=== PATIENT | male | born 1955 | race African-American/Black ===

== ENCOUNTER 2016-07-15 11:20 | Emergency (ER) | payer OTHER ==
[~2016-07-15 11:20] MED LIST: ADVA250A INH; ALBU0.08 NEB; AMLO10TA2 PO; ASPI81TA81 PO; BACT800T5 PO; BUPR100CR PO; DIAZ5 PO; ENAL20TA81 PO; EXENINJ SQ; GLYB5TAB3 PO; HYDR50TA3 PO; LEVEMIR SQ; LYRI200C PO; METF1000 PO; MORP1TAB25 PO; MSIR15 PO; NEXI40CA PO; NOVOLOGP2 SQ; POTA1TAB4 PO; PRED-503 PO; SIMV40TA PO; VENTAER INH
[2016-07-16] MEDS ORDERED: LYRI200C PO (09:30)
[2016-10-15] MEDS ORDERED: LYRI200C PO (10:21)
== END 2016-07-15 11:21 | disposition left against medical advice (07) ==
LOC: NED 11:20
DX: J98.9 Respiratory disorder, unspecified (principal)
CPT/HCPCS: 99281

== ENCOUNTER → 2016-07-30 | Outpatient (CLI) | payer OTHER ==
[~2016-07-30] MED LIST changes: -BACT800T5 PO; -PRED-503 PO
--- NOTE | 2016-07-30 13:42 | RADRPT ---
EXAM DATE/TIME: 07/30/2016 13:00 [facility] COMPARISON: CHEST PA & LAT, June 04, 2016, 9:53. INDICATIONS : Short of breath, hypoxia. MEDICAL HISTORY : Chronic obstructive pulmonary disease. Diabetes mellitus type II. Asthma. SURGICAL HISTORY : None. ENCOUNTER: Initial ACUITY: 1 week PAIN SCORE: 0/10 LOCATION: chest FINDINGS: PA and lateral views demonstrate some hyperaeration of both lung kay. There is some chronic inters titial changes bilaterally. Otherwise, the lungs are symmetrically aerated without evidence of mass, infiltrate or effusion. The cardiomediastinal contours are unremarkable. Osseous structures are int act. No significant change compared to the prior study. There is some mild stable pleural thickening bilaterally. CONCLUSION: No acute disease. No significant change has occurred. Sivakumar Trejo MD on July 30, 2016 at 13:38 Board Certified Radiologist. This report was verified electronically.
== END ==
LOC: HRAD 12:33
PROVIDERS: ATTEND Family Medicine
DX: R06.02 Shortness of breath (principal); R09.02 Hypoxemia
CPT/HCPCS: 71020

== ENCOUNTER 2016-09-08 15:40 | Inpatient (IN) | payer OTHER ==
[2016-09-08 15:42] VITALS: BP 178/103; PULSE 91; RESP 15; TEMP 97.7; O2SAT 77
[2016-09-08 15:57] VITALS: BP 184/95; PULSE 89; RESP 22; O2SAT 92
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
[2016-09-08 16:13] LABS: MEAN CORPUSCULAR HGB CONC 29.6 % (32.0-36.0)
[2016-09-08] MEDS ORDERED: SODIUM CHLORIDE 0.9% FLUSH 5 ML FLUSH IVF PRN (16:15)
[2016-09-08] MEDS ORDERED: methylPREDNISolone SOD SUCC 125 MG/2 ML VIAL IVP ONE (16:15)
[2016-09-08 16:30] LABS: AUTOMATED NEUTROPHIL # 6.2 TH/MM3 (1.8-7.7); BASOPHIL % 0.3 % (0.0-2.0); EOSINOPHIL % 0.1 % (0.0-4.0); HEMATOCRIT 45.2 % (39.0-51.0); LYMPH % 10.1 % (9.0-44.0); LYMPHOCYTE # 0.8 TH/MM3 (1.0-4.8); MEAN CELL VOLUME 64.7 FL (80.0-100.0); MEAN CORPUSCULAR HEMOGLOBIN 19.2 PG (27.0-34.0); MONO % 6.4 % (0.0-8.0); NEUT % 83.1 % (16.0-70.0); PLATELET COUNT 207 TH/MM3 (150-450); RED BLOOD COUNT 6.99 MIL/MM3 (4.50-5.90); RED CELL DISTRIBUTION WIDTH 20.7 % (11.6-17.2); WHITE BLOOD COUNT 7.5 TH/MM3 (4.0-11.0)
[2016-09-08] MEDS ORDERED: ASPIRIN 81 MG CHEW TAB CHEW ONE (16:30)
[2016-09-08 16:34] LABS: HEMO FLAGS AUTO DIFF
--- NOTE | 2016-09-08 16:35 | RADRPT ---
EXAM DATE/TIME: 09/08/2016 16:23 [facility] COMPARISON: CHEST SINGLE AP, May 18, 2016, 11:02. INDICATIONS : Short of breath and chest pain. MEDICAL HISTORY : Chronic obstructive pulmonary disease. Enlarged heart SURGICAL HISTORY : None. ENCOUNTER: Initial ACUITY: 1 day PAIN SCORE: 6/10 LOCATION: Bilateral chest FINDINGS: The heart is enlarged. Pulmonary vascularity is normal. Minimal consolidative changes are seen in the left base. The right lung is reasonably clear. CONCLUSION: 1. Cardiomegaly. 2. Minimal consolidative changes in the left base. 3. There is no overt congestive failure. Bennie Sesay MD FACR on September 08, 2016 at 16:28 Board Certified Radiologist. This report was verified electronically.
[2016-09-08] MEDS: RESP: ALBUTEROL 2.5 MG/IPRATROPIUM 0.5 MG NEB (SCH) INH (16:38)
[2016-09-08 16:48] VITALS: O2SAT 92
[2016-09-08 16:58] LABS: BICARBONATE 34.1 MEQ/L (21.0-32.0)
[2016-09-08 17:00] LABS: INTERNATIONAL NORMALIZED RATIO 1.1 RATIO; PROTHROMBIN TIME - PATIENT 12.1 SEC (9.8-11.6)
[2016-09-08 17:06] LABS: POTASSIUM 2.9 MEQ/L (3.5-5.1)
[2016-09-08 17:11] LABS: BACTERIA, URINE OCC /hpf; BLOOD, URINE NEG (NEG); COMMENT (UR) CULT NOT INDICATED; CULTURE IF INDICATED CULT NOT INDICATED; GLUCOSE,URINE 300 mg/dL (NEG); KETONE, URINE NEG (NEG); MUCUS URINE FEW /lpf (OCC); NITRITE,URINE NEG (NEG); PH, URINE 6.5 (5.0-8.5); SQUAMOUS EPITHELIAL CELL URINE <1 /hpf (0-5); URINE COLOR YELLOW (YELLW/STRAW)
[2016-09-08] MEDS ORDERED: AZITHROMYCIN INJ 500 MG in SODIUM CHLOR 0.9% 250 ML INJ 250 ML IV ONE (17:15)
[2016-09-08] MEDS ORDERED: POTASSIUM CHLOR 10 MEQ PREMIX 100 ML IV ONE (17:15)
[2016-09-08] MEDS ORDERED: HEPARIN SODIUM - IV 10,000 UNITS/10 ML VIAL IV ONE (17:15)
[2016-09-08] MEDS ORDERED: cefTRIAXone INJ 1,000 MG in SODIUM CHLORIDE 0.9% INJ 100 ML IV ONE (17:15)
[2016-09-08] MEDS ORDERED: POTASSIUM CHLORIDE 20 MEQ CONTROLLED RELEASE TAB PO ONE (17:15)
[2016-09-08] MEDS ORDERED: HEPARIN-D5W INJ 250 ML IV SCH (17:15)
[2016-09-08 17:39] LABS: BASOPHILS 2 % (0-2); CORRECTED NUCLEATED RBC 1 /100 WBC (0-0); NEUTROPHIL # MANUAL DIFF 6.6 TH/MM3 (1.8-7.7); POLYS (SEG NEUTROPHILS) 88 % (16-70); WBC DIFF SAMPLE 100
[2016-09-08 17:40] LABS: KERATOCYTES OCC (NORMAL); OVALOCYTES 1+ (NORMAL); PLATELET ESTIMATE SMEAR NORMAL (NORMAL); PLATELET MORPHOLOGY ENLARGED (NORMAL)
[2016-09-08 17:41] LABS: SCAN/DIFF FINAL DIFF MANUAL
[2016-09-08] MEDS ORDERED: NALOXONE HCL 0.4 MG/ML AMP IV PRN (17:45)
[2016-09-08] MEDS ORDERED: ONDANSETRON HCL 4 MG/2 ML VIAL IVP PRN (17:45)
[2016-09-08] MEDS ORDERED: MAGNESIUM HYDROXIDE SUSP 30 ML CUP PO PRN (17:45)
[2016-09-08] MEDS ORDERED: SODIUM CHLORIDE 0.9% FLUSH 5 ML FLUSH FLUSH PRN (17:45)
[2016-09-08] MEDS ORDERED: SENNOSIDES 8.6 MG TAB PO PRN (17:45)
[2016-09-08] MEDS ORDERED: RESP: ALBUTEROL 2.5 MG/3 ML NEB (PRN) INH (17:45)
[2016-09-08] MEDS ORDERED: ACETAMINOPHEN 325 MG TAB PO PRN (17:45)
[2016-09-08] MEDS ORDERED: DEXTROSE 50% IN WATER 50 ML VIAL(D50) IV PUSH PRN (17:45)
[2016-09-08] MEDS ORDERED: GLUCAGON 1 MG/ML VIAL OTHER PRN (17:45)
[2016-09-08 17:56] VITALS: BP 163/84; PULSE 91; RESP 22; O2SAT 93
[2016-09-08 18:04] LABS: APTT (PATIENT) 23.2 SEC (24.3-30.1)
[2016-09-08] MEDS ORDERED: INSULIN ASPART SUPPLEMENTAL SCALE SQ SCH (21:00)
[2016-09-08] MEDS ORDERED: SODIUM CHLORIDE 0.9% FLUSH 5 ML FLUSH FLUSH SCH (21:00)
[2016-09-08] MEDS ORDERED: methylPREDNISolone SOD SUCC 125 MG/2 ML VIAL IVP SCH (21:00)
[2016-09-09] MEDS ORDERED: cefTRIAXone INJ 1,000 MG in SODIUM CHLORIDE 0.9% INJ 100 ML IV SCH (18:00)
[2016-09-09] MEDS ORDERED: AZITHROMYCIN INJ 500 MG in SODIUM CHLOR 0.9% 250 ML INJ 250 ML IV SCH (20:00)
--- NOTE | 2016-09-10 11:52 | EKG ---
Date Performed: 09/08/2016 Time Performed: 16:09:35 PTAGE: 61 years EKG: Sinus rhythm POSSIBLE LEFT ATRIAL ENLARGEMENT NONSPECIFIC ST & T-WAVE ABNORMALITY BORDERLINE ECG PREVIOUS TRACING : 05/18/2016 10.54 DOCTOR: Andrez Faye Interpretating Date/Time 09/10/2016 11:50:23
[2016-10-15] MEDS ORDERED: LYRI200C PO (10:21)
== END 2016-09-08 23:53 | disposition left against medical advice (07) | DRG 190 ==
LOC: NEPA 15:40 → NEDA 17:42
PROVIDERS: ADMIT Family Medicine; ATTEND Family Medicine
DX: J44.0 Chronic obstructive pulmonary disease with (acute) lower respiratory infection (principal); J18.9 Pneumonia, unspecified organism; E11.42 Type 2 diabetes mellitus with diabetic polyneuropathy; Z99.81 Dependence on supplemental oxygen; J44.1 Chronic obstructive pulmonary disease with (acute) exacerbation; K21.9 Gastro-esophageal reflux disease without esophagitis; E78.5 Hyperlipidemia, unspecified; I10 Essential (primary) hypertension; Z87.891 Personal history of nicotine dependence
CPT/HCPCS: 71010; 80048; 81001; 83880; 84484; 85007; 85027; 85610; 85730; 87040; 93005; 94640; 94664; 96374; J0456; J0696; J1644; J2930; J3480; J7050

== ENCOUNTER → 2017-03-13 | Outpatient (CLI) | payer OTHER ==
[~2017-03-13] MED LIST changes: +LYRI225C PO
--- NOTE | 2017-03-13 09:06 | RADRPT ---
EXAM DATE/TIME: 03/13/2017 08:31 [facility] COMPARISON: CHEST SINGLE AP, September 08, 2016, 16:23. CHEST PA & LAT, July 30, 2016, 13:00. INDICATIONS : Cough and shortness of breath with history of COPD and pneumonia. MEDICAL HISTORY : Chronic obstructive pulmonary disease. Diabetes mellitus type II. Asthma SURGICAL HISTORY : None. ENCOUNTER: Initial ACUITY: 1 week PAIN SCORE: 5/10 LOCATION: Bilateral upper chest FINDINGS: Background of coarse parietal changes in both lungs without consolidation, infiltrates or failure. Th e heart and pulmonary vascularity are normal. The portion of the bony skeleton visualized is unremark able. CONCLUSION: Coarse parenchymal changes both lungs, improved when compared to 07/30/2016. Bennie Sesay MD FACR on March 13, 2017 at 9:04 Board Certified Radiologist. This report was verified electronically.
== END ==
LOC: HRAD 07:55
PROVIDERS: ATTEND Family Medicine
DX: R05 Cough (principal)
CPT/HCPCS: 71020

== ENCOUNTER → 2017-11-12 | Outpatient (CLI) | payer OTHER ==
--- NOTE | 2017-11-12 11:56 | RADRPT ---
EXAM DATE/TIME: 11/12/2017 10:04 [facility] COMPARISON: CHEST PA & LAT, May 18, 2017, 7:48. INDICATIONS : Pneumonia. MEDICAL HISTORY : Congestive heart failure. Hypercholesterolemia. Chronic obstructive pulmonary disease. Hypertensi on. Fibromyalgia. Diabetic. SURGICAL HISTORY : Tonsillectomy. ORIF left ankle. ENCOUNTER: Initial ACUITY: 1 week PAIN SCORE: 0/10 LOCATION: chest FINDINGS: Frontal and wheelchair lateral views of the chest demonstrate normal-sized cardiac silhouette. There is interstitial prominence similar to the prior study with likely some degree of atelectasis at the l isha bases. No pleural effusion or pneumothorax is identified. Bones demonstrate no acute finding. The re is mild degenerative change of the thoracic spine. CONCLUSION: There is likely atelectasis at the lung bases. Otherwise, no acute finding is appreciated. Romel Mena MD on November 12, 2017 at 11:52 Board Certified Radiologist. This report was verified electronically.
== END ==
LOC: HRAD 09:45
PROVIDERS: ATTEND Family Medicine
DX: J18.9 Pneumonia, unspecified organism (principal)
CPT/HCPCS: 71046

== ENCOUNTER 2017-12-16 02:09 | Inpatient (IN) ==
[2018-01-10] MEDS ORDERED: Heparin 2,000 UNITS/2 ML Vial (for IV use) IV.FLUSH PRN (00:01)
[2018-01-10] MEDS ORDERED: Heparin 10,000 UNITS/10 ML Vial (for IV use) IV.FLUSH PRN (00:01)
[2018-01-10] MEDS ORDERED: Chlorhexidine Gluconate 2% 1 Pack (2 Cloths) TOPICAL PRN (00:01)
[2018-01-10] MEDS ORDERED: Heparin 10,000 UNITS/10 ML Vial (for IV use) OTHER PRN ×2 (00:01)
[2018-01-10] MEDS ORDERED: Gelatin 12 MM/7 MM Topical Foam TOPICAL PRN (00:01)
[2018-01-10] MEDS ORDERED: Dextrose 50% in Water 50 ML Vial IV.PUSH PRN (00:01)
[2018-01-10] MEDS ORDERED: Bisacodyl 10 MG Supp RECTAL PRN (00:01)
[2018-01-10] MEDS ORDERED: Acetaminophen 325 MG Tablet PO PRN ×2 (00:01)
[2018-01-10] MEDS ORDERED: Albumin Human 25% Inj 100 ML IV.SIG PRN (00:01)
[2018-01-10] MEDS ORDERED: Sod Chloride 0.9% Inj 1,000 ML OTHER PRN ×2 (01:00)
[2018-01-10] MEDS ORDERED: Sod Chloride 0.9% Inj 1,000 ML IV.CONT PRN (01:00)
[2018-01-10] MEDS: Dextrose 5% in Water Inj 1,000 ML IV.CONT SCH (05:33)
[2018-01-10] MEDS: Oral Hygiene Kit OROPHARYNG SCH ×3 (05:49→17:45)
[2018-01-10] MEDS: Chlorhexidine Gluconate 2% 1 Pack (2 Cloths) TOPICAL SCH (06:06)
[2018-01-10] MEDS: dilTIAZem 30 MG Tablet PO SCH ×3 (06:08→18:15)
[2018-01-10] MEDS: Famotidine 20 MG Tablet PO SCH ×2 (10:43→22:47)
[2018-01-10] MEDS: Calcium Acetate 667 MG Capsule PO SCH ×3 (10:43→19:21)
[2018-01-10] MEDS: predniSONE 10 MG Tablet PO SCH (10:45)
[2018-01-10] MEDS: Senna/Docusate Sodium 8.6/50 MG Tablet PO SCH ×2 (10:45→22:47)
[2018-01-10] MEDS: Insulin Detemir Inj 1,000 UNIT/10 ML Vial SQ SCH ×2 (11:09→21:00)
--- NOTE | 2018-01-10 11:57 | P.PNIM ---
Subjective Interval history: No significant changes today. Patient continues dialysis on schedule and is tolerating this well. He remains globally weak and cannot discharge home yet. He does not have retirement facility options. Physical Exam Vital signs: Vital Signs 01/10/18 00:00 01/10/18 04:00 01/10/18 08:00 Temperature 97.6 F 97.2 F L 97.3 F L Pulse Rate 110 H 106 H 101 H Respiratory Rate 19 17 18 Blood Pressure 96/78 L 116/83 93/66 L Pulse Oximetry 92 L 94 L 99 01/10/18 08:50 Temperature Pulse Rate 64 Respiratory Rate 16 Blood Pressure Pulse Oximetry 95 Intake & Output 01/09/18 01/10/18 01/10/18 18:59 06:59 18:59 Intake Total 120 / 120 Output Total 0 / 0 Balance 120 / 120 Weight 113 kg 105.3 kg Intake: Oral 120 / 120 Output: Urine Amount (Catheter) 0 / 0 Condom 0 / 0 - Routine HEENT Exam Comments: GENERAL: NAD, A&Ox3 HEAD: Normocephalic. NECK: Supple, trachea midline. No lymphadenopathy. EYES: No scleral icterus. No injection or drainage. CARDIOVASCULAR: Regular rate and rhythm without murmurs, gallops, or rubs. RESPIRATORY: Breath sounds equal bilaterally. No accessory muscle use. GASTROINTESTINAL: Abdomen soft, non-tender, nondistended. MUSCULOSKELETAL: No cyanosis, or edema. SKIN: Warm and dry. NEURO: No focal neurological deficitis. - Urinary Catheter Management Condom Cath placed during this visit: no Results - Labs CBC & Chem 7: 01/09/18 08:09 01/09/18 08:09 Labs: Laboratory Results - last 24 hr 01/06/18 01/06/18 01/07/18 14:44 14:44 05:21 WBC 19.3 H 15.8 H RBC 5.84 6.11 H Hgb 12.4 L 12.5 L Hct 39.5 41.7 MCV 67.6 L 68.2 L MCH 21.1 L 20.4 L MCHC 31.3 L 29.9 L RDW 21.5 H 22.2 H Plt Count 107 L D 165 D MPV 9.7 9.3 Neut % (Auto) 91.3 H Lymph % (Auto) 2.1 L [place] % (Auto) 5.6 Eos % (Auto) 0.4 Baso % (Auto) 0.6 Neut # (Auto) 17.6 H Lymph # (Auto) 0.4 L [place] # (Auto) 1.1 H Eos # (Auto) 0.1 Baso # (Auto) 0.1 CBC Comment AUTO DIFF Differential Comment AUTO DIFF CONFIRMED Platelet Estimate LOW L Plt Morphology Comment ENLARGED H Target Cells 1+ H Ovalocytes 1+ H Hematology Comments Sodium 135 L Potassium 3.8 Chloride 98 Carbon Dioxide 25.1 Anion Gap 12 BUN 101 H D Creatinine 3.65 H D Estimated GFR 21 L Random Glucose 256 H D Calcium 9.1 D Phosphorus 4.1 D Magnesium 2.3 Total Bilirubin 1.4 H AST 69 H ALT 122 H Alkaline Phosphatase 111 Total Protein 7.5 Albumin 3.4 01/08/18 01/08/18 01/09/18 07:24 07:25 08:09 WBC 15.2 H RBC 5.99 H Hgb 12.5 L Hct 41.6 MCV 69.4 L MCH 20.8 L MCHC 30.0 L RDW 22.6 H Plt Count 155 MPV 9.2 Neut % (Auto) 82.8 H Lymph % (Auto) 4.5 L [place] % (Auto) 8.7 H Eos % (Auto) 3.5 Baso % (Auto) 0.5 Neut # (Auto) 12.6 H Lymph # (Auto) 0.7 L [place] # (Auto) 1.3 H Eos # (Auto) 0.5 H Baso # (Auto) 0.1 CBC Comment AUTO DIFF Differential Comment AUTO DIFF CONFIRMED Platelet Estimate NORMAL Plt Morphology Comment NORMAL Target Cells Ovalocytes 1+ H Hematology Comments Sodium 137 138 Potassium 3.4 L 3.6 Chloride 96 L 98 Carbon Dioxide 25.9 29.6 Anion Gap 15 10 BUN 71 H D 81 H Creatinine 2.95 H 3.21 H Estimated GFR 26 L 24 L Random Glucose 173 H 174 H Calcium 9.5 9.6 Phosphorus Magnesium Total Bilirubin 1.3 H 1.3 H AST 66 H 91 H ALT 116 H 111 H Alkaline Phosphatase 114 122 H Total Protein 8.0 8.1 Albumin 3.8 3.7 01/09/18 08:09 WBC 12.8 H RBC 5.91 H Hgb 12.3 L Hct 40.6 MCV 68.8 L MCH 20.8 L MCHC 30.3 L RDW 22.2 H Plt Count 168 MPV 9.3 Neut % (Auto) 77.5 H Lymph % (Auto) 4.6 L [place] % (Auto) 10.1 H Eos % (Auto) 6.7 H Baso % (Auto) 1.1 Neut # (Auto) 10.0 H Lymph # (Auto) 0.6 L [place] # (Auto) 1.3 H Eos # (Auto) 0.9 H Baso # (Auto) 0.1 CBC Comment AUTO DIFF Differential Comment AUTO DIFF CONFIRMED Platelet Estimate NORMAL Plt Morphology Comment ENLARGED H Target Cells Ovalocytes 1+ H Hematology Comments Sodium Potassium Chloride Carbon Dioxide Anion Gap BUN Creatinine Estimated GFR Random Glucose Calcium Phosphorus Magnesium Total Bilirubin AST ALT Alkaline Phosphatase Total Protein Albumin Assessment and Plan - Plan 62 year old male admitted in respiratory distress. No significant changes compared to yesterday. Continue to work with PT to try to attain functionality for a stable discharge to home. SNF not an option. Acute hypoxic respiratory failure COPD exacerbation Pulmonary hypertension Status post extubation on 12/31/2017 Continue oxygen support as needed Continue steroid taper Continue scheduled breathing treatments including inhaled steroids Obstructive sleep apnea Obesity hypoventilation syndrome Continue BiPAP at night Hypertension Continue baseline treatment Follow blood pressures Adjust treatments as needed Hyperlipidemia Continue present treatment Follow as an outpatient Acute renal failure ATN Continue dialysis Possible small CVA Daily aspirin Chronic HCV Anxiety disorder on chronic benzos Depression Chronic pain syndrome and chronic opiate Continue morphine Continue bupropion Continue Lyrica Diabetes mellitus type 2 Follow blood sugars Insulin sliding scale Diabetic diet History of HIT Follow platelets Sacral decubitus wound Continue wound care History of MGUS DVT prophylaxis Chest wall mass Biopsy once stable Leukocytosis Follow CBC Discharge Planning Ultimately patient will discharge to retirement facility
--- NOTE | 2018-01-10 13:12 | P.PNNP ---
Subjective Interval history: Patient is lethargic but does arouse. No acute complaints per nursing. Hemodialysis yesterday tolerated well. <Amber Thomas - Last Filed: 01/10/18 13:07> Physical Exam Vital signs: Vital Signs 01/10/18 00:00 01/10/18 04:00 01/10/18 08:00 Temperature 97.6 F 97.2 F L 97.3 F L Pulse Rate 110 H 106 H 101 H Respiratory Rate 19 17 18 Blood Pressure 96/78 L 116/83 93/66 L Pulse Oximetry 92 L 94 L 99 01/10/18 08:50 Temperature Pulse Rate 64 Respiratory Rate 16 Blood Pressure Pulse Oximetry 95 Intake & Output 01/09/18 01/10/18 01/10/18 18:59 06:59 18:59 Intake Total 120 / 120 Output Total 0 / 0 Balance 120 / 120 Weight 113 kg 105.3 kg Intake: Oral 120 / 120 Output: Urine Amount (Catheter) 0 / 0 Condom 0 / 0 - Constitutional no acute distress - Routine HEENT Exam Head: Present: normocephalic ENT: Present: mucous membranes moist - Routine Neck Exam Present: supple. Absent: JVD - Routine Cardiovascular Exam Present: RRR, tachycardia - Routine Abdominal Exam Present: soft, normoactive bowel sounds - Routine Skin Exam Present: warm - Routine Neurological Exam lethargic - Detailed Neurological Exam: Coma Scale Eye Opening: Spontaneous Verbal Response: Confused - Urinary Catheter Management Condom Cath placed during this visit: no <Amber Thomas - Last Filed: 01/10/18 13:07> Vital signs: Vital Signs 01/10/18 00:00 01/10/18 04:00 01/10/18 08:00 Temperature 97.6 F 97.2 F L 97.3 F L Pulse Rate 110 H 106 H 101 H Respiratory Rate 19 17 18 Blood Pressure 96/78 L 116/83 93/66 L Pulse Oximetry 92 L 94 L 99 01/10/18 08:50 01/10/18 12:00 Temperature 98.7 F Pulse Rate 64 102 H Respiratory Rate 16 18 Blood Pressure 96/76 L Pulse Oximetry 95 95 Intake & Output 01/09/18 01/10/18 01/10/18 18:59 06:59 18:59 Intake Total 120 / 120 Output Total 0 / 0 Balance 120 / 120 Weight 113 kg 105.3 kg Intake: Oral 120 / 120 Output: Urine Amount (Catheter) 0 / 0 Condom 0 / 0 - Urinary Catheter Management Condom Cath placed during this visit: no <Paris Cueto - Last Filed: 01/10/18 16:41> Assessment and Plan - Assessment (1) Acute kidney injury Code(s): N17.9 - Acute kidney failure, unspecified Status: Acute Plan: The patient has chronic kidney disease and developed acute kidney injury. Acute renal failure with ATN because of the hypotension or possibility of contrast nephropathy with the CT angiogram done. Renal ultrasound with no hydronephrosis Heart cath pulmonary hypertension Decubitus ulcer Avoid nephrotoxic agents Dialysis TTS schedule Next scheduled hemodialysis on Thursday Will monitor labs and urinary output Watch for renal recovery. <Amber Thomas - Last Filed: 01/10/18 13:07> - Assessment (1) Acute kidney injury Code(s): N17.9 - Acute kidney failure, unspecified Status: Acute Plan: Patient seen and examined, agree with above. Continue HD, TTS. <Paris Cueto - Last Filed: 01/10/18 16:41>
[2018-01-10] MEDS: Chlorhexidine 0.12% Oral Kit 15 ML UDC SWISH-SPIT SCH ×2 (14:41→22:44)
[2018-01-10] MEDS: Artificial Tears Opth Oint 3.5 GM Tube EACH EYE SCH ×2 (14:49→22:44)
[2018-01-10] MEDS: Collagenase Oint 30 GM Tube TOPICAL SCH (14:50)
[2018-01-10] MEDS: Budesonide-Formoterol 160/4.5 MCG 6 GM Inhaler INH SCH ×2 (14:50→21:00)
[2018-01-11] MEDS: Oral Hygiene Kit OROPHARYNG SCH ×4 (02:00→17:05)
[2018-01-11] MEDS: dilTIAZem 30 MG Tablet PO SCH ×5 (06:00→23:26)
[2018-01-11] MEDS: Dextrose 5% in Water Inj 1,000 ML IV.CONT SCH (06:32)
[2018-01-11 07:18] LABS: Baso # (Auto) 0.1 th/mm3 (0.0-0.2); Baso % (Auto) 0.4 % (0.0-2.0); Eos # (Auto) 0.8 th/mm3 (0.0-0.4); Eos % (Auto) 4.2 % (0.0-4.0); Hematocrit 39.2 % (39.0-51.0); Lymph # (Auto) 1.1 th/mm3 (1.0-4.8); Lymph % (Auto) 5.8 % (9.0-44.0); Mean Corpuscular Hemoglobin 20.8 pg (27.0-34.0); Mean Corpuscular Volume 68.1 fL (80.0-100.0); Mean Platelet Volume 9.4 fL (7.0-11.0); Mono # (Auto) 1.6 th/mm3 (0.0-0.9); Neut # (Auto) 14.8 th/mm3 (1.8-7.7); Neut % (Auto) 80.6 % (16.0-70.0); Platelet Count 174 th/mm3 (150-450); Red Blood Count 5.76 mil/mm3 (4.50-5.90); Red Cell Distribution Width 22.3 % (11.6-17.2); White Blood Count 18.3 th/mm3 (4.0-11.0)
[2018-01-11 07:25] LABS: Mean Corpuscular HGB Conc 30.5 % (32.0-36.0)
[2018-01-11 08:20] LABS: Platelet Estimate Normal (Normal); Platelet Morphology Normal (Normal)
[2018-01-11 09:12] LABS: Alanine Aminotransferase 202 U/L (12-78); Albumin 3.4 g/dL (3.4-5.0); Alkaline Phosphatase 126 U/L (45-117); Anion Gap 15 meq/L (5-15); Aspartate Aminotransferase 80 U/L (15-37); Blood Urea Nitrogen 88 mg/dL (7-18); Calcium 9.8 mg/dL (8.5-10.1); Carbon Dioxide 22.4 meq/L (21.0-32.0); Chloride 97 meq/L (98-107); Glomerular Filtration Rate 17 mL/min (>89); Glucose,Random 191 mg/dL (74-106); Potassium 3.9 meq/L (3.5-5.1); Sodium 134 meq/L (136-145); Total Protein 7.9 g/dL (6.4-8.2)
[2018-01-11] MEDS: Famotidine 20 MG Tablet PO SCH ×2 (11:19→23:22)
[2018-01-11] MEDS: Senna/Docusate Sodium 8.6/50 MG Tablet PO SCH ×2 (11:20→23:23)
[2018-01-11] MEDS: predniSONE 10 MG Tablet PO SCH (11:20)
[2018-01-11] MEDS: Calcium Acetate 667 MG Capsule PO SCH ×2 (11:20→15:30)
[2018-01-11] MEDS: Artificial Tears Opth Oint 3.5 GM Tube EACH EYE SCH ×2 (11:21→23:24)
[2018-01-11] MEDS: Insulin Detemir Inj 1,000 UNIT/10 ML Vial SQ SCH ×2 (11:21→23:25)
[2018-01-11] MEDS: Collagenase Oint 30 GM Tube TOPICAL SCH (11:22)
[2018-01-11] MEDS: Budesonide-Formoterol 160/4.5 MCG 6 GM Inhaler INH SCH ×2 (11:23→23:26)
[2018-01-11] MEDS: Chlorhexidine 0.12% Oral Kit 15 ML UDC SWISH-SPIT SCH ×2 (11:32→23:24)
--- NOTE | 2018-01-11 11:35 | P.PNNP ---
Subjective Interval history: Patient continues generalized weakness. Per nursing skin breakdown on buttocks. <Amber Thomas - Last Filed: 01/11/18 11:28> Physical Exam Vital signs: Vital Signs 01/10/18 12:00 01/10/18 16:00 01/10/18 20:00 Temperature 98.7 F 98 F 97.6 F Pulse Rate 102 H 97 H 92 H Respiratory Rate 18 18 20 Blood Pressure 96/76 L 98/63 L 111/73 Pulse Oximetry 95 94 L 98 01/10/18 20:12 01/11/18 00:00 01/11/18 04:00 Temperature 98.0 F 98.2 F Pulse Rate 90 100 H 100 H Respiratory Rate 16 20 20 Blood Pressure 111/75 112/74 Pulse Oximetry 94 L 91 L 93 L 01/11/18 08:00 01/11/18 10:29 Temperature 98.0 F Pulse Rate 93 H 108 H Respiratory Rate 22 24 Blood Pressure 112/64 Pulse Oximetry 94 L Intake & Output 01/10/18 01/11/18 01/11/18 18:59 06:59 18:59 Intake Total 480 / 480 820 / 820 Output Total 350 / 350 Balance 130 / 130 820 / 820 Weight 105.6 kg Intake: IV 420 / 420 D5W Inj 1,000 ML @ 20 mls/hr IV 420 / 420 .CONT .Q24H [facility] Rx#:[id number] Oral 480 / 480 400 / 400 Output: Urine Amount (Catheter) 350 / 350 Condom 350 / 350 Other: # Bowel Movements 0 - Constitutional no acute distress - Routine HEENT Exam Head: Present: normocephalic ENT: Present: mucous membranes moist - Routine Neck Exam Absent: JVD - Routine Respiratory Exam Present: decreased breath sounds. Absent: rales, rhonchi - Routine Cardiovascular Exam Present: RRR - Routine Abdominal Exam Present: soft, normoactive bowel sounds - Routine Skin Exam Present: wounds, rash - Detailed Neurological Exam: Coma Scale Eye Opening: To sound Verbal Response: Confused - Urinary Catheter Management Condom Cath placed during this visit: no Urethral indwelling: No Reason for continuing: Not indwelling catheter <Amber Thomas - Last Filed: 01/11/18 11:28> Vital signs: Vital Signs 01/11/18 00:00 01/11/18 04:00 01/11/18 08:00 Temperature 98.0 F 98.2 F 98.0 F Pulse Rate 100 H 100 H 93 H Respiratory Rate 20 20 22 Blood Pressure 111/75 112/74 112/64 Pulse Oximetry 91 L 93 L 94 L 01/11/18 10:29 01/11/18 16:00 01/11/18 21:04 Temperature 98.1 F Pulse Rate 108 H 61 79 Respiratory Rate 24 22 16 Blood Pressure 168/65 H Pulse Oximetry 95 93 L Intake & Output 01/11/18 01/11/18 01/12/18 06:59 18:59 06:59 Intake Total 820 / 820 1160 / 1160 Output Total 800 / 800 Balance 820 / 820 360 / 360 Weight 105.6 kg Intake: IV 420 / 420 D5W Inj 1,000 ML @ 20 mls/hr IV 420 / 420 .CONT .Q24H [facility] Rx#:[id number] Oral 400 / 400 360 / 360 Other 800 / 800 Output: Urine 800 / 800 Other: # Bowel Movements 0 1 - Urinary Catheter Management Condom Cath placed during this visit: no <Paris Cueto - Last Filed: 01/11/18 22:20> Assessment and Plan - Assessment (1) Acute kidney injury Code(s): N17.9 - Acute kidney failure, unspecified Status: Acute Plan: The patient has chronic kidney disease and developed acute kidney injury. Acute renal failure with ATN because of the hypotension or possibility of contrast nephropathy with the CT angiogram done. Renal ultrasound with no hydronephrosis Heart cath pulmonary hypertension Decubitus ulcer Avoid nephrotoxic agents Dialysis TTS schedule Next scheduled hemodialysis on Thursday Patient remains oliguric with urinary output of 350ml/24 hours Creatinine today at 4.41 Will monitor labs and urinary output Watch for renal recovery. <Amber Thomas - Last Filed: 01/11/18 11:28> - Assessment (1) Acute kidney injury Code(s): N17.9 - Acute kidney failure, unspecified Status: Acute - Attending Attestation Patient seen and examined, agree with above. Watch for renal recovery, HD will be in AM. <Paris Cueto - Last Filed: 01/11/18 22:20>
--- NOTE | 2018-01-11 11:59 | P.PNIM ---
Subjective Interval history: Patient has no complaints today. She remains weak and unable to ambulate. Blood work shows no acute concerns. Physical Exam Vital signs: Vital Signs 01/10/18 12:00 01/10/18 16:00 01/10/18 20:00 Temperature 98.7 F 98 F 97.6 F Pulse Rate 102 H 97 H 92 H Respiratory Rate 18 18 20 Blood Pressure 96/76 L 98/63 L 111/73 Pulse Oximetry 95 94 L 98 01/10/18 20:12 01/11/18 00:00 01/11/18 04:00 Temperature 98.0 F 98.2 F Pulse Rate 90 100 H 100 H Respiratory Rate 16 20 20 Blood Pressure 111/75 112/74 Pulse Oximetry 94 L 91 L 93 L 01/11/18 08:00 01/11/18 10:29 Temperature 98.0 F Pulse Rate 93 H 108 H Respiratory Rate 22 24 Blood Pressure 112/64 Pulse Oximetry 94 L Intake & Output 01/10/18 01/11/18 01/11/18 18:59 06:59 18:59 Intake Total 480 / 480 820 / 820 Output Total 350 / 350 Balance 130 / 130 820 / 820 Weight 105.6 kg Intake: IV 420 / 420 D5W Inj 1,000 ML @ 20 mls/hr IV 420 / 420 .CONT .Q24H [facility] Rx#:[id number] Oral 480 / 480 400 / 400 Output: Urine Amount (Catheter) 350 / 350 Condom 350 / 350 Other: # Bowel Movements 0 - Routine HEENT Exam Comments: GENERAL: NAD, A&Ox3 HEAD: Normocephalic. NECK: Supple, trachea midline. No lymphadenopathy. EYES: No scleral icterus. No injection or drainage. CARDIOVASCULAR: Regular rate and rhythm without murmurs, gallops, or rubs. RESPIRATORY: Breath sounds equal bilaterally. No accessory muscle use. GASTROINTESTINAL: Abdomen soft, non-tender, nondistended. MUSCULOSKELETAL: No cyanosis, or edema. SKIN: Warm and dry. NEURO: No focal neurological deficits. Global weakness. - Urinary Catheter Management Condom Cath placed during this visit: no Urethral indwelling: No Results - Labs CBC & Chem 7: 01/11/18 06:40 01/11/18 06:40 Laboratory Results - last 24 hr 01/11/18 01/11/18 06:40 06:40 WBC 18.3 H RBC 5.76 Hgb 12.0 L Hct 39.2 MCV 68.1 L MCH 20.8 L MCHC 30.5 L RDW 22.3 H Plt Count 174 MPV 9.4 Prelim Diff (Auto) Slide review pending Neut % (Auto) 80.6 H Lymph % (Auto) 5.8 L [place] % (Auto) 9.0 H Eos % (Auto) 4.2 H Baso % (Auto) 0.4 Neut # (Auto) 14.8 H Lymph # (Auto) 1.1 [place] # (Auto) 1.6 H Eos # (Auto) 0.8 H Baso # (Auto) 0.1 WBC Differential . Diff Scan Auto diff confirmed Differential Comment . Platelet Estimate Normal Platelet Morphology Normal Keratocytes Occ H Sodium 134 L Potassium 3.9 Chloride 97 L Carbon Dioxide 22.4 Anion Gap 15 BUN 88 H Creatinine 4.41 H Estimated GFR 17 L Random Glucose 191 H Calcium 9.8 Total Bilirubin 0.7 AST 80 H ALT 202 H Alkaline Phosphatase 126 H Total Protein 7.9 Albumin 3.4 Assessment and Plan - Plan 62 year old male admitted in respiratory distress. Continue dialysis and work with PT until patient is functional for discharge to home. No significant changes compared to yesterday. Continue to work with PT to try to attain functionality for a stable discharge to home. SNF not an option. Acute hypoxic respiratory failure COPD exacerbation Pulmonary hypertension Status post extubation on 12/31/2017 Continue oxygen support as needed Continue steroid taper Continue scheduled breathing treatments including inhaled steroids Obstructive sleep apnea Obesity hypoventilation syndrome Continue BiPAP at night Hypertension Continue baseline treatment Follow blood pressures Adjust treatments as needed Hyperlipidemia Continue present treatment Follow as an outpatient Acute renal failure ATN Continue dialysis Possible small CVA Daily aspirin Chronic HCV Anxiety disorder on chronic benzos Depression Chronic pain syndrome and chronic opiate Continue morphine Continue bupropion Continue Lyrica Diabetes mellitus type 2 Follow blood sugars Insulin sliding scale Diabetic diet History of HIT Follow platelets Sacral decubitus wound Continue wound care History of MGUS DVT prophylaxis Chest wall mass Biopsy once stable Leukocytosis Follow CBC Discharge Planning [facility]
[2018-01-11] MEDS: Chlorhexidine Gluconate 2% 1 Pack (2 Cloths) TOPICAL SCH (15:37)
[2018-01-12] MEDS: Chlorhexidine Gluconate 2% 1 Pack (2 Cloths) TOPICAL SCH (07:16)
[2018-01-12] MEDS: Oral Hygiene Kit OROPHARYNG SCH ×4 (07:18→18:51)
[2018-01-12] MEDS: dilTIAZem 30 MG Tablet PO SCH ×5 (07:19→19:03)
[2018-01-12] MEDS: predniSONE 10 MG Tablet PO SCH (09:51)
[2018-01-12] MEDS: Famotidine 20 MG Tablet PO SCH ×2 (09:51→22:54)
[2018-01-12] MEDS: Senna/Docusate Sodium 8.6/50 MG Tablet PO SCH ×2 (09:52→22:55)
[2018-01-12] MEDS: Calcium Acetate 667 MG Capsule PO SCH ×4 (09:52→19:04)
--- NOTE | 2018-01-12 12:15 | P.PNPAL ---
Reason for Visit Reason for visit: a. To assist with evaluation and management of symptoms including: dyspnea, pain b. To assist medical decision maker(s) with: better understanding of current medical conditions; weighing benefits/burdens of medical treatment options; making medical treatment decisions. Subjective Subjective/Interval History: Follow up today for dyspnea, pain. at bedside. Pt appears comfortable. Pt c/o low back pain in region of his decubitus. Pain is constant but worse with movement. On my exam, skin breakdown has spread to underside of scrotum, which is partially adhered to white cotton towel. Pt cites mild SOB intermittently, even at rest. Dyspnea worse with exertion. He is SOB to conversation and is only minimally verbal, only able to talk it short sentences and at a whisper. Pt indicates his wish is to go to [facility] but per case mgmt, his insurance will not accomodate this. Family/Friend Interactions: wants pt to go to rehab and [facility] and says she does will call them and pt' s insurance to get authorization for this. She is very concerned about his pain meds, that he's no longer receiving morphine and says he was having opiate withdrawals last night, shaking and yawning and sweating. She says his percocet is not sufficient but does acknowledge that it relieved his " withdrawal symptoms" last night. Objective Vital Signs: Vital Signs 01/11/18 16:00 01/11/18 20:00 01/11/18 21:04 Temperature 98.1 F 97.8 F Pulse Rate 61 82 79 Respiratory Rate 22 18 16 Blood Pressure 168/65 H 106/70 Pulse Oximetry 95 94 L 93 L 01/12/18 00:00 01/12/18 01:11 01/12/18 04:00 Temperature 97.9 F 97.8 F Pulse Rate 107 H 92 H Respiratory Rate 18 18 Blood Pressure 96/65 L 95/71 L Pulse Oximetry 93 L 93 L 100 01/12/18 04:24 01/12/18 08:00 01/12/18 08:24 Temperature 98.1 F Pulse Rate 93 H 70 Respiratory Rate 22 18 Blood Pressure 92/69 L Pulse Oximetry 96 98 Intake & Output 01/11/18 01/12/18 01/12/18 18:59 06:59 18:59 Intake Total 1160 / 1160 0 / 0 Output Total 800 / 800 Balance 360 / 360 0 / 0 Weight 106.9 kg Intake: Oral 360 / 360 0 / 0 Other 800 / 800 Output: Urine 800 / 800 Other: # Voids 1 # Bowel Movements 1 0 Physical Exam: CONSTITUTIONAL/GENERAL: This is an adequately nourished patient, in no apparent distress, sedated on mech vent EYES: PERRL. No scleral icterus. No injection or drainage. Fundi not examined. NECK: Trachea midline. Supple, nontender. CARDIOVASCULAR: tachycardic. No JVD. Peripheral pulses symmetric RESPIRATORY/CHEST: shallow respirations. SOB to conversation. lung sounds diminished. crackles left lower lung field GASTROINTESTINAL: Abdomen soft, no apparent tenderness, obese. No palpable masses. Bowel sounds present. GENITOURINARY: Without palpable bladder distension. MUSCULOSKELETAL: Extremities without clubbing, cyanosis, or edema. No mottling or clubbing. SKIN: ulceration coccyx partially dressed. towel adhering to ulcerated scrotal skin. NEUROLOGICAL: alert. oriented PSYCHIATRIC: No obvious anxiety/depression. no apparent hallucinations or other psychotic thought process. Diagnostic Tests Laboratory: Laboratory Results - last 72 hr 01/06/18 01/06/18 01/07/18 14:44 14:44 05:21 WBC 19.3 H 15.8 H RBC 5.84 6.11 H Hgb 12.4 L 12.5 L Hct 39.5 41.7 MCV 67.6 L 68.2 L MCH 21.1 L 20.4 L MCHC 31.3 L 29.9 L RDW 21.5 H 22.2 H Plt Count 107 L D 165 D MPV 9.7 9.3 Prelim Diff (Auto) Neut % (Auto) 91.3 H Lymph % (Auto) 2.1 L [place] % (Auto) 5.6 Eos % (Auto) 0.4 Baso % (Auto) 0.6 Neut # (Auto) 17.6 H Lymph # (Auto) 0.4 L [place] # (Auto) 1.1 H Eos # (Auto) 0.1 Baso # (Auto) 0.1 CBC Comment AUTO DIFF WBC Differential Diff Scan Differential Comment AUTO DIFF CONFIRMED Platelet Estimate LOW L Platelet Morphology Plt Morphology Comment ENLARGED H Target Cells 1+ H Ovalocytes 1+ H Keratocytes Hematology Comments Sodium 135 L Potassium 3.8 Chloride 98 Carbon Dioxide 25.1 Anion Gap 12 BUN 101 H D Creatinine 3.65 H D Estimated GFR 21 L POC Glucose Random Glucose 256 H D Calcium 9.1 D Phosphorus 4.1 D Magnesium 2.3 Total Bilirubin 1.4 H AST 69 H ALT 122 H Alkaline Phosphatase 111 Total Protein 7.5 Albumin 3.4 01/08/18 01/08/18 01/09/18 07:24 07:25 08:09 WBC 15.2 H RBC 5.99 H Hgb 12.5 L Hct 41.6 MCV 69.4 L MCH 20.8 L MCHC 30.0 L RDW 22.6 H Plt Count 155 MPV 9.2 Prelim Diff (Auto) Neut % (Auto) 82.8 H Lymph % (Auto) 4.5 L [place] % (Auto) 8.7 H Eos % (Auto) 3.5 Baso % (Auto) 0.5 Neut # (Auto) 12.6 H Lymph # (Auto) 0.7 L [place] # (Auto) 1.3 H Eos # (Auto) 0.5 H Baso # (Auto) 0.1 CBC Comment AUTO DIFF WBC Differential Diff Scan Differential Comment AUTO DIFF CONFIRMED Platelet Estimate NORMAL Platelet Morphology Plt Morphology Comment NORMAL Target Cells Ovalocytes 1+ H Keratocytes Hematology Comments Sodium 137 138 Potassium 3.4 L 3.6 Chloride 96 L 98 Carbon Dioxide 25.9 29.6 Anion Gap 15 10 BUN 71 H D 81 H Creatinine 2.95 H 3.21 H Estimated GFR 26 L 24 L POC Glucose Random Glucose 173 H 174 H Calcium 9.5 9.6 Phosphorus Magnesium Total Bilirubin 1.3 H 1.3 H AST 66 H 91 H ALT 116 H 111 H Alkaline Phosphatase 114 122 H Total Protein 8.0 8.1 Albumin 3.8 3.7 01/09/18 01/11/18 01/11/18 08:09 06:40 06:40 WBC 12.8 H 18.3 H RBC 5.91 H 5.76 Hgb 12.3 L 12.0 L Hct 40.6 39.2 MCV 68.8 L 68.1 L MCH 20.8 L 20.8 L MCHC 30.3 L 30.5 L RDW 22.2 H 22.3 H Plt Count 168 174 MPV 9.3 9.4 Prelim Diff (Auto) Slide review pending Neut % (Auto) 77.5 H 80.6 H Lymph % (Auto) 4.6 L 5.8 L [place] % (Auto) 10.1 H 9.0 H Eos % (Auto) 6.7 H 4.2 H Baso % (Auto) 1.1 0.4 Neut # (Auto) 10.0 H 14.8 H Lymph # (Auto) 0.6 L 1.1 [place] # (Auto) 1.3 H 1.6 H Eos # (Auto) 0.9 H 0.8 H Baso # (Auto) 0.1 0.1 CBC Comment AUTO DIFF WBC Differential . Diff Scan Auto diff confirmed Differential Comment AUTO DIFF CONFIRMED . Platelet Estimate NORMAL Normal Platelet Morphology Normal Plt Morphology Comment ENLARGED H Target Cells Ovalocytes 1+ H Keratocytes Occ H Hematology Comments Sodium 134 L Potassium 3.9 Chloride 97 L Carbon Dioxide 22.4 Anion Gap 15 BUN 88 H Creatinine 4.41 H Estimated GFR 17 L POC Glucose Random Glucose 191 H Calcium 9.8 Phosphorus Magnesium Total Bilirubin 0.7 AST 80 H ALT 202 H Alkaline Phosphatase 126 H Total Protein 7.9 Albumin 3.4 01/11/18 01/12/18 22:12 08:39 WBC RBC Hgb Hct MCV MCH MCHC RDW Plt Count MPV Prelim Diff (Auto) Neut % (Auto) Lymph % (Auto) [place] % (Auto) Eos % (Auto) Baso % (Auto) Neut # (Auto) Lymph # (Auto) [place] # (Auto) Eos # (Auto) Baso # (Auto) CBC Comment WBC Differential Diff Scan Differential Comment Platelet Estimate Platelet Morphology Plt Morphology Comment Target Cells Ovalocytes Keratocytes Hematology Comments Sodium Potassium Chloride Carbon Dioxide Anion Gap BUN Creatinine Estimated GFR POC Glucose 286 H 120 H Random Glucose Calcium Phosphorus Magnesium Total Bilirubin AST ALT Alkaline Phosphatase Total Protein Albumin Result Diagrams: 01/21/18 14:45 01/22/18 15:30 Assessment and Plan - Symptom Scale (1) Pain 0-10 Scale: Unable to quantify (2) Dyspnea 0-10 Scale: Unable to quantify Pertinent Non-Medical Issues: Psychosocial: Spiritual:+ believes in God, no particular affiliation, welcomes account representative support. Legal:Not able to make decisions/incapacitated 2/2 to critical illness, not clear he will regain ability to. Per [place] statutes his would be appropriate legal decision maker. Ethical issues impacting care: Important Contacts: Lidia Alexander [phone]; mikala [phone] Dtr Lissette Bowman [phone] Prognosis: This patient was admitted for acute shortness of breath. He has known history of COPD. He also had been being worked up outpatient for possible myeloma process. He has significant heart failure this admission was severely reduced cardiac output, EF 10%, and severe pulmonary hypertension. This combined with advanced COPD and acute renal failure makes overall prognosis guarded to poor. High risk for ongoing complications, decline and . Code Status: Full Code Plan: * Legal decision maker: Should he become incapacitated again, Per [place] statutes his would be appropriate legal decision maker. Recommend shared decision making at this time.. * Goals:Aggressive at this time-- seeking rehab before he comes home. * CODE STATUS:FULL CODE * SYMPTOMS: --Dyspnea- acute dyspnea on day of presentation. was intubated, extubated , s/p heart catheterization, severely reduced cardiac output, pulmonary hypertension, EF 10%. Noted to have advanced COPD O2 dependent 3 L. Currently on NC. SOB to conversation, which is limited. Intermittent SOB at rest. Currently on scheduled inhaled steroids, symbicort, albuterol. --Pain-patient with chronic back pain, chronic muscle skeletal pain, chronic pain syndrome. had been on Lyrica. Per heme/onc no definite evidence to suggest multiple myeloma. Pt now with decubitus and skin breakdown on scrotum, on my eval cotton towel was adhering to scrotum. Woundcare is following, recommended no cotton pads under buttocks. Has PRN apap, Percocet q6h PRN, last had this morning 0950, lyrica. Recommend following woundcare recs, including use of ultrasorb pads without cotton towels. Consider condom cath. Consider switching from percocet to long acting morphine 15 mg BID. * Palliative care will continue to follow during hospital course as condition evolves, to assist patient/decision-maker with understanding of medical conditions, weighing benefits/burdens of treatment options, for clarification of goals of treatment. Additionally will assist with any symptoms of palliative concern Attestation Collaborating MD Comments: Chart reviewed. Case discussed with palliative care SUPERVISOR [employer]. Above SUPERVISOR [employer]NA[employer] PROCESS note reviewed and I concur. .
--- NOTE | 2018-01-12 12:53 | P.PNIM ---
Subjective Interval history: No overnight events. Discussed with the patient. Afebrile, positive for leukocytosis from yesterday. Breathing is improved, no dysuria, frequency, urgency or diarrhea. No indwelling Brock catheter. Physical Exam Vital signs: Vital Signs 01/11/18 16:00 01/11/18 20:00 01/11/18 21:04 Temperature 98.1 F 97.8 F Pulse Rate 61 82 79 Respiratory Rate 22 18 16 Blood Pressure 168/65 H 106/70 Pulse Oximetry 95 94 L 93 L 01/12/18 00:00 01/12/18 01:11 01/12/18 04:00 Temperature 97.9 F 97.8 F Pulse Rate 107 H 92 H Respiratory Rate 18 18 Blood Pressure 96/65 L 95/71 L Pulse Oximetry 93 L 93 L 100 01/12/18 04:24 01/12/18 08:00 01/12/18 08:24 Temperature 98.1 F Pulse Rate 93 H 70 Respiratory Rate 22 18 Blood Pressure 92/69 L Pulse Oximetry 96 98 Intake & Output 01/11/18 01/12/18 01/12/18 18:59 06:59 18:59 Intake Total 1160 / 1160 0 / 0 Output Total 800 / 800 Balance 360 / 360 0 / 0 Weight 106.9 kg Intake: Oral 360 / 360 0 / 0 Other 800 / 800 Output: Urine 800 / 800 Other: # Voids 1 # Bowel Movements 1 0 Narrative: GENERAL: NAD, A&Ox3 NECK: Supple, trachea midline. No lymphadenopathy. CARDIOVASCULAR: Regular rate and rhythm without murmurs, gallops, or rubs. RESPIRATORY: Breath sounds equal bilaterally. No accessory muscle use. GASTROINTESTINAL: Abdomen soft, non-tender, nondistended. MUSCULOSKELETAL: Stage II-III sacral decubitus ulcer, does not seem infected NEURO: Alert, awake and oriented 3. Weak vocalization. - Urinary Catheter Management Condom Cath placed during this visit: no Urethral indwelling: No Reason for continuing: Not indwelling catheter Results - Labs CBC & Chem 7: 01/11/18 06:40 01/11/18 06:40 Laboratory Results - last 24 hr 01/11/18 01/12/18 22:12 08:39 POC Glucose 286 H 120 H Assessment and Plan - Plan 62 year old male admitted in respiratory distress. Acute hypoxic respiratory failure COPD exacerbation Pulmonary hypertension Status post extubation on 12/31/2017 Continue oxygen support as needed Continue steroid taper, decrease prednisone to 5 mg daily, give for a few more days and stop. Continue scheduled breathing treatments, continue Symbicort. Obstructive sleep apnea Obesity hypoventilation syndrome Continue BiPAP at night Hypertension Continue baseline treatment Follow blood pressures Hyperlipidemia Continue present treatment Follow as an outpatient Acute renal failure AT Acute on top of chronic renal failure, awaiting renal recovery, nephrology following, continue hemodialysis. Possible small CVA Daily aspirin Chronic HCV Anxiety disorder on chronic benzos Depression Chronic pain syndrome and chronic opiate Stop morphine because of renal failure, continue Percocet, dose increased. Diabetes mellitus type 2 Follow blood sugars Insulin sliding scale with long-acting insulin Diabetic diet History of HIT Follow platelets Sacral decubitus wound Reconsult wound care, specialty bed. History of MGUS DVT prophylaxis Chest wall mass Biopsy once stable Leukocytosis Follow CBC Discharge Planning Needs fci placement, no coverage, waiting on indigo versus CIR.
[2018-01-12] MEDS: Budesonide-Formoterol 160/4.5 MCG 6 GM Inhaler INH SCH (14:29)
[2018-01-12] MEDS: Collagenase Oint 30 GM Tube TOPICAL SCH (14:29)
[2018-01-12] MEDS: Insulin Detemir Inj 1,000 UNIT/10 ML Vial SQ SCH ×2 (14:38→23:14)
[2018-01-12] MEDS: Artificial Tears Opth Oint 3.5 GM Tube EACH EYE SCH ×2 (14:38→23:17)
[2018-01-12] MEDS: Chlorhexidine 0.12% Oral Kit 15 ML UDC SWISH-SPIT SCH ×2 (14:39→23:16)
--- NOTE | 2018-01-12 15:22 | P.PN ---
Subjective Interval history: Patient seen during HD, awake, not fully oriented, has mild SOB. Physical Exam Vital signs: Vital Signs 01/11/18 16:00 01/11/18 20:00 01/11/18 21:04 Temperature 98.1 F 97.8 F Pulse Rate 61 82 79 Respiratory Rate 22 18 16 Blood Pressure 168/65 H 106/70 Pulse Oximetry 95 94 L 93 L 01/12/18 00:00 01/12/18 01:11 01/12/18 04:00 Temperature 97.9 F 97.8 F Pulse Rate 107 H 92 H Respiratory Rate 18 18 Blood Pressure 96/65 L 95/71 L Pulse Oximetry 93 L 93 L 100 01/12/18 04:24 01/12/18 08:00 01/12/18 08:24 Temperature 98.1 F Pulse Rate 93 H 70 Respiratory Rate 22 18 Blood Pressure 92/69 L Pulse Oximetry 96 98 01/12/18 12:00 Temperature 98.0 F Pulse Rate 88 Respiratory Rate 22 Blood Pressure 104/69 Pulse Oximetry 98 Intake & Output 01/11/18 01/12/18 01/12/18 18:59 06:59 18:59 Intake Total 1160 / 1160 0 / 0 Output Total 800 / 800 Balance 360 / 360 0 / 0 Weight 106.9 kg Intake: Oral 360 / 360 0 / 0 Other 800 / 800 Output: Urine 800 / 800 Other: # Voids 1 # Bowel Movements 1 0 - Constitutional mild distress - Routine HEENT Exam Head: Present: normocephalic - Routine Neck Exam Present: supple - Routine Respiratory Exam Present: decreased breath sounds, rhonchi, crackles, distant breath sounds, diminished air movement - Routine Cardiovascular Exam Present: S1, S2 - Routine Abdominal Exam Present: soft, normoactive bowel sounds, distended - Routine Extremities Exam Present: edema - Routine Neurological Exam Present: alert - Urinary Catheter Management Condom Cath placed during this visit: no Urethral indwelling: No Reason for continuing: Hourly intake/output Results - Labs CBC & Chem 7: 01/11/18 06:40 01/11/18 06:40 Laboratory Results - last 24 hr 01/11/18 01/12/18 22:12 08:39 POC Glucose 286 H 120 H Assessment and Plan - Assessment (1) Acute kidney injury Code(s): N17.9 - Acute kidney failure, unspecified Status: Acute - Attending Attestation (1) Acute kidney injury Code(s): N17.9 - Acute kidney failure, unspecified Status: Acute Plan: The patient has chronic kidney disease and developed acute kidney injury. Acute renal failure with ATN because of the hypotension or possibility of contrast nephropathy with the CT angiogram done. Renal ultrasound with no hydronephrosis Heart cath pulmonary hypertension Decubitus ulcer Avoid nephrotoxic agents Dialysis TTS schedule Patient remains oliguric Creatinine remain high. Will monitor labs and urinary output Watch for renal recovery. HD now, remove fluid as tolerated.
[2018-01-12] MEDS: guaiFENesin 600 MG ER Tablet PO PRN (18:51)
--- NOTE | 2018-01-12 19:02 | P.PN ---
Subjective Interval history: ALERT, WEAK RECEIVED DIALYSIS TODAY Physical Exam Vital signs: Vital Signs 01/11/18 20:00 01/11/18 21:04 01/12/18 00:00 Temperature 97.8 F 97.9 F Pulse Rate 82 79 107 H Respiratory Rate 18 16 18 Blood Pressure 106/70 96/65 L Pulse Oximetry 94 L 93 L 93 L 01/12/18 01:11 01/12/18 04:00 01/12/18 04:24 Temperature 97.8 F Pulse Rate 92 H Respiratory Rate 18 Blood Pressure 95/71 L Pulse Oximetry 93 L 100 96 01/12/18 08:00 01/12/18 08:24 01/12/18 12:00 Temperature 98.1 F 98.0 F Pulse Rate 93 H 70 88 Respiratory Rate 22 18 22 Blood Pressure 92/69 L 104/69 Pulse Oximetry 98 98 Intake & Output 01/11/18 01/12/18 01/12/18 18:59 06:59 18:59 Intake Total 1160 / 1160 0 / 0 Output Total 800 / 800 1999 Balance 360 / 360 0 / 0 -1999 Weight 106.9 kg Intake: Oral 360 / 360 0 / 0 Other 800 / 800 Output: Urine 800 / 800 Hemodialysis Amount 1999 Other: # Voids 1 # Bowel Movements 1 0 - Constitutional no acute distress - Routine HEENT Exam Head: Present: normocephalic Eye: Present: PERRL ENT: Present: mucous membranes moist - Routine Neck Exam Present: supple, trachea midline - Routine Cardiovascular Exam Present: RRR - Routine Abdominal Exam Present: soft - Routine Neurological Exam Present: alert - Detailed Neurological Exam: Coma Scale Eye Opening: Spontaneous - Routine Psychiatric Exam Present: normal affect - Urinary Catheter Management Condom Cath placed during this visit: no Urethral indwelling: No Reason for continuing: Hourly intake/output Results - Labs CBC & Chem 7: 01/11/18 06:40 01/11/18 06:40 Laboratory Results - last 24 hr 01/11/18 01/12/18 22:12 08:39 POC Glucose 286 H 120 H Assessment and Plan - Plan O2 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
[2018-01-12 20:45] LABS: Baso # (Auto) 0.1 th/mm3 (0.0-0.2); Baso % (Auto) 0.5 % (0.0-2.0); Eos # (Auto) 0.3 th/mm3 (0.0-0.4); Hematocrit 37.6 % (39.0-51.0); Hemoglobin 11.3 gm/dL (13.0-17.0); Lymph # (Auto) 0.8 th/mm3 (1.0-4.8); Lymph % (Auto) 6.1 % (9.0-44.0); Mean Corpuscular Hemoglobin 20.6 pg (27.0-34.0); Mean Corpuscular Volume 68.2 fL (80.0-100.0); Mean Platelet Volume 9.6 fL (7.0-11.0); Mono # (Auto) 1.2 th/mm3 (0.0-0.9); Mono % (Auto) 9.1 % (0.0-8.0); Neut # (Auto) 10.5 th/mm3 (1.8-7.7); Neut % (Auto) 82.3 % (16.0-70.0); Platelet Count 135 th/mm3 (150-450); Red Blood Count 5.51 mil/mm3 (4.50-5.90); Red Cell Distribution Width 21.5 % (11.6-17.2); White Blood Count 12.8 th/mm3 (4.0-11.0)
[2018-01-12 20:46] LABS: Mean Corpuscular HGB Conc 30.2 % (32.0-36.0)
[2018-01-12 21:04] LABS: Alanine Aminotransferase 159 U/L (12-78); Albumin 4.2 g/dL (3.4-5.0); Alkaline Phosphatase 126 U/L (45-117); Anion Gap 13 meq/L (5-15); Aspartate Aminotransferase 71 U/L (15-37); Blood Urea Nitrogen 68 mg/dL (7-18); Calcium 10.2 mg/dL (8.5-10.1); Carbon Dioxide 25.1 meq/L (21.0-32.0); Chloride 97 meq/L (98-107); Glomerular Filtration Rate 22 mL/min (>89); Glucose,Random 112 mg/dL (74-106); Potassium 4.2 meq/L (3.5-5.1); Sodium 135 meq/L (136-145); Total Protein 8.7 g/dL (6.4-8.2)
[2018-01-12 21:16] LABS: Platelet Morphology Normal (Normal); Toxic Granulation 1+; Toxic Vacuolation Present
[2018-01-12] MEDS ORDERED: MethylPREDNISolone Sod Succinate Inj 125 MG/2 ML Vial IV.PUSH ONE (22:37)
--- NOTE | 2018-01-12 23:05 | XR ---
EXAM DATE: 01/12/2018 10:59 PM EDT AGE/SEX: 62 years / Male INDICATIONS: Short of breath, halicat. CLINICAL DATA: This is the patient's initial encounter. Patient reports that signs and symptoms have been present for 1 day and indicates a pain score of Nonresponsive. MEDICAL/SURGICAL HISTORY: Non-responsive. Non-responsive. COMPARISON: [facility], CHEST SINGLE AP, 01/03/2018. [facility], CHEST SINGLE AP, 01/01/2018. [facility], CHEST SINGL E AP, 12/30/2017. [facility], XR CHEST PA AND LAT, 06/27/2014. . FINDINGS: A single AP view of the chest demonstrates the lungs to be symmetrically aerated without evidence of mass, infiltrate or effusion. There are some scattered linear densities in the periphery of the righ t mid lung and at the left base. The cardiomediastinal contours are stable with normal heart size. Th ere is prominence in the right hilar region, stable from prior, probably representing a prominent pul monary artery. Osseous structures are intact. CONCLUSION: No focal infiltrates seen. Chronic scarring or atelectasis in the lower lungs. Electronically signed by: Blade Santoro MD 01/12/2018 11:04 PM EDT
[2018-01-12 23:21] LABS: ABG Base Excess 3.6 mmol/L (-2-2); ABG PCO2 29 mmHg (38-42); ABG PO2 54 mmHg (61-120)
--- NOTE | 2018-01-13 03:27 | P.PNADD ---
Addendum to Inpatient Note Reason for Addendum: Additional Documentation Additional information: Halicat Note S: Resident team was paged around 2230 for a Halicat by nursing staff. Reported that when the patient tonight he appeared to have trouble breathing, O2 saturation was in the 70s. They state the patient was placed on BiPAP prior to our arrival. Following the BiPAP placement they report the O2 saturation was 100%. At the time of interview the patient denies chest pain, shortness of breath, arm/jaw pain, lightheadedness, dizziness, any other pains at this time. No other complaints. Dr. Jono Soni was also present at the room and stated he prescribed a one-time dose of methylprednisone. O: Pulse: 127 BP: 166/111 O2 saturation: Mid 90s to 100% GENERAL: Laying in bed, BiPAP on, no acute distress SKIN: Warm and dry. HEAD: Atraumatic. Normocephalic. EYES: Pupils equal and round. No scleral icterus. No injection or drainage. ENT: No nasal bleeding or discharge. Mucous membranes pink and moist. NECK: Trachea midline. No JVD. CARDIOVASCULAR: Regular rhythm, tachycardic RESPIRATORY: No accessory muscle use. Breath sounds equal bilaterally. Mild wheezes. GASTROINTESTINAL: Abdomen soft, non-tender MUSCULOSKELETAL: Extremities without clubbing, cyanosis, or edema. No obvious deformities. NEUROLOGICAL: Awake and alert. No obvious cranial nerve deficits. Motor grossly within normal limits. Five out of 5 muscle strength in the arms and legs. A/P: 62-year-old male admitted for COPD exacerbation who experienced shortness of breath and O2 desaturation when sleeping at night when not on BiPAP. Also documented to have obstructive sleep apnea. Rapidly improved with BiPAP application, methylprednisone. -Patient to continue BiPAP at night, as is documented in the primary care team' s notes
[2018-01-13 06:07] LABS: ABG Base Excess 1.4 mmol/L (-2-2); ABG PCO2 37 mmHg (38-42); ABG PO2 101 mmHg (61-120)
[2018-01-13 06:57] LABS: Baso % (Auto) 0.2 % (0.0-2.0); Eos % (Auto) 0.1 % (0.0-4.0); Hematocrit 36.3 % (39.0-51.0); Hemoglobin 11.2 gm/dL (13.0-17.0); Lymph # (Auto) 0.2 th/mm3 (1.0-4.8); Lymph % (Auto) 2.1 % (9.0-44.0); Mean Corpuscular Hemoglobin 21.3 pg (27.0-34.0); Mean Corpuscular Volume 68.9 fL (80.0-100.0); Mean Platelet Volume 9.4 fL (7.0-11.0); Mono # (Auto) 0.2 th/mm3 (0.0-0.9); Neut # (Auto) 10.8 th/mm3 (1.8-7.7); Neut % (Auto) 95.6 % (16.0-70.0); Platelet Count 147 th/mm3 (150-450); Red Blood Count 5.27 mil/mm3 (4.50-5.90); Red Cell Distribution Width 22.2 % (11.6-17.2); White Blood Count 11.3 th/mm3 (4.0-11.0)
[2018-01-13 08:10] LABS: Mean Corpuscular HGB Conc 30.9 % (32.0-36.0)
[2018-01-13] MEDS: dilTIAZem 30 MG Tablet PO SCH ×4 (10:14→17:45)
[2018-01-13] MEDS: Famotidine 20 MG Tablet PO SCH ×2 (10:14→21:45)
[2018-01-13] MEDS: predniSONE 5 MG Tablet PO SCH (10:14)
[2018-01-13] MEDS: Senna/Docusate Sodium 8.6/50 MG Tablet PO SCH ×2 (10:15→21:44)
[2018-01-13] MEDS: Calcium Acetate 667 MG Capsule PO SCH ×2 (10:15→15:25)
[2018-01-13] MEDS: Collagenase Oint 30 GM Tube TOPICAL SCH ×2 (10:17)
--- NOTE | 2018-01-13 12:27 | P.PN ---
Subjective Interval history: alert appetite good Physical Exam Vital signs: Vital Signs 01/12/18 19:45 01/12/18 19:46 01/12/18 20:00 Temperature Pulse Rate 92 H Respiratory Rate 21 Blood Pressure Pulse Oximetry 97 72 L 01/12/18 22:30 01/12/18 22:53 01/13/18 00:00 Temperature 100.2 F H Pulse Rate 101 H 100 H Respiratory Rate 32 H 25 H Blood Pressure 175/100 H 138/85 Pulse Oximetry 70 L 100 100 01/13/18 04:00 01/13/18 04:23 01/13/18 04:24 Temperature 98.3 F Pulse Rate 112 H Respiratory Rate 22 Blood Pressure 112/80 Pulse Oximetry 92 L 97 97 01/13/18 09:40 Temperature Pulse Rate 93 H Respiratory Rate 20 Blood Pressure Pulse Oximetry 97 Intake & Output 01/12/18 01/13/18 01/13/18 18:59 06:59 18:59 Intake Total 240 / 240 Output Total 2100 / 2100 200 / 200 Balance -1860 / -1860 -200 / -200 Weight 105.5 kg Intake: Oral 240 / 240 Output: Urine 100 / 100 200 / 200 Hemodialysis Amount 1999 Other: # Voids 1 # Bowel Movements 0 - Urinary Catheter Management Condom Cath placed during this visit: no Urethral indwelling: No Reason for continuing: Hourly intake/output Results - Labs CBC & Chem 7: 01/13/18 04:58 01/12/18 20:13 Laboratory Results - last 24 hr 01/12/18 01/12/18 01/12/18 20:13 20:13 22:15 WBC 12.8 H RBC 5.51 Hgb 11.3 L Hct 37.6 L MCV 68.2 L MCH 20.6 L MCHC 30.2 L RDW 21.5 H Plt Count 135 L MPV 9.6 Prelim Diff (Auto) Slide review pending Neut % (Auto) 82.3 H Lymph % (Auto) 6.1 L [place] % (Auto) 9.1 H Eos % (Auto) 2.0 Baso % (Auto) 0.5 Neut # (Auto) 10.5 H Lymph # (Auto) 0.8 L [place] # (Auto) 1.2 H Eos # (Auto) 0.3 Baso # (Auto) 0.1 WBC Differential . Diff Scan Auto diff confirmed Differential Comment . Toxic Granulation 1+ H Toxic Vacuolation Present H Platelet Estimate Low L Platelet Morphology Normal Puncture Site Patient Temperature O2 Saturation ABG pH ABG pCO2 ABG pO2 ABG HCO3 ABG O2 Content ABG Base Excess ABG Methemoglobin Sher Test Hemoglobin Carboxyhemoglobin O2 Delivery Device Vent Setting Inspired O2 Critical Value Sodium 135 L Potassium 4.2 Chloride 97 L Carbon Dioxide 25.1 Anion Gap 13 BUN 68 H Creatinine 3.42 H Estimated GFR 22 L POC Glucose 90 Random Glucose 112 H Calcium 10.2 H Total Bilirubin 0.9 AST 71 H ALT 159 H Alkaline Phosphatase 126 H Total Protein 8.7 H D Albumin 4.2 D 01/12/18 01/13/18 01/13/18 22:37 04:58 05:42 WBC 11.3 H RBC 5.27 Hgb 11.2 L Hct 36.3 L MCV 68.9 L MCH 21.3 L MCHC 30.9 L RDW 22.2 H Plt Count 147 L MPV 9.4 Prelim Diff (Auto) Slide review pending Neut % (Auto) 95.6 H Lymph % (Auto) 2.1 L [place] % (Auto) 2.0 Eos % (Auto) 0.1 Baso % (Auto) 0.2 Neut # (Auto) 10.8 H Lymph # (Auto) 0.2 L [place] # (Auto) 0.2 Eos # (Auto) 0.0 Baso # (Auto) 0.0 WBC Differential . Diff Scan Auto diff confirmed Differential Comment . Toxic Granulation Toxic Vacuolation Platelet Estimate Platelet Morphology Puncture Site Left radial Left radial Patient Temperature 98.6 98.6 O2 Saturation 88 L* 96 ABG pH 7.56 H* 7.45 H ABG pCO2 29 L 37 L ABG pO2 54 L* 101 ABG HCO3 26 25 ABG O2 Content 14.4 14.9 ABG Base Excess 3.6 H 1.4 ABG Methemoglobin 0.7 0.8 Sher Test Present Present Hemoglobin 11.6 L 10.9 L Carboxyhemoglobin 1.9 1.7 O2 Delivery Device Bipap Bipap Vent Setting 16/8 Inspired O2 40 40 Critical Value Yes No Sodium Potassium Chloride Carbon Dioxide Anion Gap BUN Creatinine Estimated GFR POC Glucose Random Glucose Calcium Total Bilirubin AST ALT Alkaline Phosphatase Total Protein Albumin - Imaging Impressions Chest X-Ray 01/12/18 22:37 CONCLUSION: No focal infiltrates seen. Chronic scarring or atelectasis in the lower lungs. 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
--- NOTE | 2018-01-13 13:19 | P.PNWCN ---
Wound/Pressure Injury - Patient Status Premedicated for Pain Prior to Dressing Change: No - Wound Sacrum Wound Staging: DTI Wound Assessment: Ongoing Wound Type: Maceration (With DTI located in middle) Is This a Chronic Wound: Yes Requested from Provider a Wound Care Consult: No (Iraj HERNÁNDEZ,[facility] seen patient ) Length: 9.5 Width: 13 Wound Bed Appearance: Necrotic, Peeling Skin, Red, Shiny, Yellow Surrounding Tissue Appearance: Edematous, Weeping Surrounding Tissue Temperature: Warm Drainage Description: Serosanguinous Drainage Amount: Moderate Drainage Odor: Foul Odor Dressing Status: Changed Cleansing Solution: Saline Topical: Enzymatic Debridement Ointment Wound Packing Type: Gauze Pads Cover Dressing: Adhesive Dressing Tape Type: Paper Wound Dressing Change Date: 01/13/18 Scrotum Wound Assessment: Ongoing Wound Type: Maceration Is This a Chronic Wound: Yes Requested from Provider a Wound Care Consult: No Wound Bed Appearance: [place], Shiny Surrounding Tissue Appearance: Edematous Surrounding Tissue Temperature: Warm Drainage Description: Serous Drainage Amount: Scant Drainage Odor: Slight Odor Dressing Status: Open to Air Cleansing Solution: Saline Topical: [place] Cover Dressing: Absorbant Pad Wound Dressing Change Date: 01/13/18 Incision - Patient Status Premedicated for Pain Prior to Dressing Change: No
--- NOTE | 2018-01-13 14:26 | P.PN ---
Subjective Interval history: Patient is alert, complain of back pain at his decubitus site. Physical Exam Vital signs: Vital Signs 01/12/18 19:45 01/12/18 19:46 01/12/18 20:00 Temperature Pulse Rate 92 H Respiratory Rate 21 Blood Pressure Pulse Oximetry 97 72 L 01/12/18 22:30 01/12/18 22:53 01/13/18 00:00 Temperature 100.2 F H Pulse Rate 101 H 100 H Respiratory Rate 32 H 25 H Blood Pressure 175/100 H 138/85 Pulse Oximetry 70 L 100 100 01/13/18 04:00 01/13/18 04:23 01/13/18 04:24 Temperature 98.3 F Pulse Rate 112 H Respiratory Rate 22 Blood Pressure 112/80 Pulse Oximetry 92 L 97 97 01/13/18 09:40 Temperature Pulse Rate 93 H Respiratory Rate 20 Blood Pressure Pulse Oximetry 97 Intake & Output 01/12/18 01/13/18 01/13/18 18:59 06:59 18:59 Intake Total 240 / 240 Output Total 2100 / 2100 200 / 200 Balance -1860 / -1860 -200 / -200 Weight 105.5 kg Intake: Oral 240 / 240 Output: Urine 100 / 100 200 / 200 Hemodialysis Amount 1999 / 1999 Other: # Voids 1 # Bowel Movements 0 - Constitutional no acute distress - Routine HEENT Exam Head: Present: normocephalic - Routine Neck Exam Present: supple - Routine Cardiovascular Exam Present: S1, S2 - Routine Abdominal Exam Present: soft, normoactive bowel sounds, tenderness - Routine Neurological Exam Present: alert, oriented X3 - Urinary Catheter Management Condom Cath placed during this visit: no Urethral indwelling: No Reason for continuing: Hourly intake/output Results - Labs CBC & Chem 7: 01/13/18 04:58 01/12/18 20:13 Laboratory Results - last 24 hr 01/12/18 01/12/18 01/12/18 20:13 20:13 22:15 WBC 12.8 H RBC 5.51 Hgb 11.3 L Hct 37.6 L MCV 68.2 L MCH 20.6 L MCHC 30.2 L RDW 21.5 H Plt Count 135 L MPV 9.6 Prelim Diff (Auto) Slide review pending Neut % (Auto) 82.3 H Lymph % (Auto) 6.1 L [place] % (Auto) 9.1 H Eos % (Auto) 2.0 Baso % (Auto) 0.5 Neut # (Auto) 10.5 H Lymph # (Auto) 0.8 L [place] # (Auto) 1.2 H Eos # (Auto) 0.3 Baso # (Auto) 0.1 WBC Differential . Diff Scan Auto diff confirmed Differential Comment . Toxic Granulation 1+ H Toxic Vacuolation Present H Platelet Estimate Low L Platelet Morphology Normal Puncture Site Patient Temperature O2 Saturation ABG pH ABG pCO2 ABG pO2 ABG HCO3 ABG O2 Content ABG Base Excess ABG Methemoglobin Sher Test Hemoglobin Carboxyhemoglobin O2 Delivery Device Vent Setting Inspired O2 Critical Value Sodium 135 L Potassium 4.2 Chloride 97 L Carbon Dioxide 25.1 Anion Gap 13 BUN 68 H Creatinine 3.42 H Estimated GFR 22 L POC Glucose 90 Random Glucose 112 H Calcium 10.2 H Total Bilirubin 0.9 AST 71 H ALT 159 H Alkaline Phosphatase 126 H Total Protein 8.7 H D Albumin 4.2 D 01/12/18 01/13/18 01/13/18 22:37 04:58 05:42 WBC 11.3 H RBC 5.27 Hgb 11.2 L Hct 36.3 L MCV 68.9 L MCH 21.3 L MCHC 30.9 L RDW 22.2 H Plt Count 147 L MPV 9.4 Prelim Diff (Auto) Slide review pending Neut % (Auto) 95.6 H Lymph % (Auto) 2.1 L [place] % (Auto) 2.0 Eos % (Auto) 0.1 Baso % (Auto) 0.2 Neut # (Auto) 10.8 H Lymph # (Auto) 0.2 L [place] # (Auto) 0.2 Eos # (Auto) 0.0 Baso # (Auto) 0.0 WBC Differential . Diff Scan Auto diff confirmed Differential Comment . Toxic Granulation Toxic Vacuolation Platelet Estimate Platelet Morphology Puncture Site Left radial Left radial Patient Temperature 98.6 98.6 O2 Saturation 88 L* 96 ABG pH 7.56 H* 7.45 H ABG pCO2 29 L 37 L ABG pO2 54 L* 101 ABG HCO3 26 25 ABG O2 Content 14.4 14.9 ABG Base Excess 3.6 H 1.4 ABG Methemoglobin 0.7 0.8 Sher Test Present Present Hemoglobin 11.6 L 10.9 L Carboxyhemoglobin 1.9 1.7 O2 Delivery Device Bipap Bipap Vent Setting 16/8 Inspired O2 40 40 Critical Value Yes No Sodium Potassium Chloride Carbon Dioxide Anion Gap BUN Creatinine Estimated GFR POC Glucose Random Glucose Calcium Total Bilirubin AST ALT Alkaline Phosphatase Total Protein Albumin - Imaging Impressions Chest X-Ray 01/12/18 22:37 CONCLUSION: No focal infiltrates seen. Chronic scarring or atelectasis in the lower lungs. Assessment and Plan - Assessment (1) Acute kidney injury Code(s): N17.9 - Acute kidney failure, unspecified Status: Acute Plan: (1) Acute kidney injury Code(s): N17.9 - Acute kidney failure, unspecified Status: Acute Plan: The patient has chronic kidney disease and developed acute kidney injury. Acute renal failure with ATN because of the hypotension or possibility of contrast nephropathy with the CT angiogram done. Renal ultrasound with no hydronephrosis Heart cath pulmonary hypertension Decubitus ulcer Avoid nephrotoxic agents Dialysis TTS schedule Patient remains oliguric Creatinine remain high. Will monitor labs and urinary output Watch for renal recovery. HD done yesterday, Cartercath came out accidently. Will get PermCath tomorrow.
[2018-01-13] MEDS: Oral Hygiene Kit OROPHARYNG SCH ×3 (15:16→21:44)
[2018-01-13] MEDS: Budesonide-Formoterol 160/4.5 MCG 6 GM Inhaler INH SCH ×2 (15:16→21:39)
[2018-01-13] MEDS: Artificial Tears Opth Oint 3.5 GM Tube EACH EYE SCH ×2 (15:17→21:46)
[2018-01-13] MEDS: Chlorhexidine 0.12% Oral Kit 15 ML UDC SWISH-SPIT SCH ×2 (15:17→21:46)
[2018-01-13] MEDS: guaiFENesin 600 MG ER Tablet PO PRN (15:31)
[2018-01-13] MEDS: oxyCODONE/Acetaminophen 10/325 Tablet PO PRN (15:40)
[2018-01-13] MEDS: Insulin Detemir Inj 1,000 UNIT/10 ML Vial SQ SCH ×2 (15:49→22:13)
[2018-01-13 15:51] LABS: Bacteria,Urine Occasional /hpf; Bilirubin,Urine Negative (Negative); Clarity,Urine Hazy (Clear); Color,Urine Yellow (Yellw/Straw); Glucose,Urine (UA) 150 mg/dL (Negative); Hyaline Casts,Urine 12 /lpf (0-3); Leukocyte Esterase,Urine Negative (Negative); Nitrite,Urine Negative (Negative); Specific Gravity,Urine 1.017 (1.002-1.035)
[2018-01-13] MEDS ORDERED: Dextrose 50% in Water 50 ML Vial IV.PUSH PRN (15:53)
--- NOTE | 2018-01-13 16:02 | P.PN ---
Subjective Interval history: Follow-up acute hypoxic respiratory failure/acute renal failure on hemodialysis January 13, 2018-Eddie was called in last night secondary to respiratory failure however improved. Patient remains oliguric with worsening renal function. Elevated blood glucose Physical Exam Vital signs: Vital Signs 01/12/18 19:45 01/12/18 19:46 01/12/18 20:00 Temperature Pulse Rate 92 H Respiratory Rate 21 Blood Pressure Pulse Oximetry 97 72 L 01/12/18 22:30 01/12/18 22:53 01/13/18 00:00 Temperature 100.2 F H Pulse Rate 101 H 100 H Respiratory Rate 32 H 25 H Blood Pressure 175/100 H 138/85 Pulse Oximetry 70 L 100 100 01/13/18 04:00 01/13/18 04:23 01/13/18 04:24 Temperature 98.3 F Pulse Rate 112 H Respiratory Rate 22 Blood Pressure 112/80 Pulse Oximetry 92 L 97 97 01/13/18 08:00 01/13/18 09:40 Temperature 98.4 F Pulse Rate 109 H 93 H Respiratory Rate 20 20 Blood Pressure 147/72 H Pulse Oximetry 91 L 97 Intake & Output 01/12/18 01/13/18 01/13/18 18:59 06:59 18:59 Intake Total 240 / 240 Output Total 2100 / 2100 200 / 200 Balance -1860 / -1860 -200 / -200 Weight 105.5 kg Intake: Oral 240 / 240 Output: Urine 100 / 100 200 / 200 Hemodialysis Amount 1999 / 1999 Other: # Voids 1 # Bowel Movements 0 Narrative: GENERAL: NAD SKIN: Warm and dry. HEAD: Normocephalic. EYES: No scleral icterus. No injection or drainage. NECK: Supple, trachea midline. No JVD or lymphadenopathy. CARDIOVASCULAR: Regular rate and rhythm without murmurs, gallops, or rubs. RESPIRATORY: Breath sounds decrease bilaterally. No accessory muscle use. GASTROINTESTINAL: Abdomen soft, non-tender, nondistended. MUSCULOSKELETAL: No cyanosis, or edema. BACK: Nontender without obvious deformity. No CVA tenderness. - Urinary Catheter Management Condom Cath placed during this visit: no Urethral indwelling: No Reason for continuing: Hourly intake/output Results - Labs CBC & Chem 7: 01/13/18 04:58 01/12/18 20:13 Laboratory Results - last 24 hr 0701/12/18 01/12/18 20:13 20:13 22:15 WBC 12.8 H RBC 5.51 Hgb 11.3 L Hct 37.6 L MCV 68.2 L MCH 20.6 L MCHC 30.2 L RDW 21.5 H Plt Count 135 L MPV 9.6 Prelim Diff (Auto) Slide review pending Neut % (Auto) 82.3 H Lymph % (Auto) 6.1 L [place] % (Auto) 9.1 H Eos % (Auto) 2.0 Baso % (Auto) 0.5 Neut # (Auto) 10.5 H Lymph # (Auto) 0.8 L [place] # (Auto) 1.2 H Eos # (Auto) 0.3 Baso # (Auto) 0.1 WBC Differential . Diff Scan Auto diff confirmed Differential Comment . Toxic Granulation 1+ H Toxic Vacuolation Present H Platelet Estimate Low L Platelet Morphology Normal Puncture Site Patient Temperature O2 Saturation ABG pH ABG pCO2 ABG pO2 ABG HCO3 ABG O2 Content ABG Base Excess ABG Methemoglobin Sher Test Hemoglobin Carboxyhemoglobin O2 Delivery Device Vent Setting Inspired O2 Critical Value Sodium 135 L Potassium 4.2 Chloride 97 L Carbon Dioxide 25.1 Anion Gap 13 BUN 68 H Creatinine 3.42 H Estimated GFR 22 L POC Glucose 90 Random Glucose 112 H Calcium 10.2 H Total Bilirubin 0.9 AST 71 H ALT 159 H Alkaline Phosphatase 126 H Total Protein 8.7 H D Albumin 4.2 D Urine Color Urine Clarity Urine pH Ur Specific [place] Urine Protein Urine Glucose (UA) Urine Ketones Urine Occult Blood Urine Nitrate Urine Bilirubin Urine Urobilinogen Ur Leukocyte Esterase Urine RBC Urine WBC Urine Bacteria Hyaline Casts Micro UA Comment Urine Culture Comments 01/12/18 01/13/18 01/13/18 22:37 04:58 05:42 WBC 11.3 H RBC 5.27 Hgb 11.2 L Hct 36.3 L MCV 68.9 L MCH 21.3 L MCHC 30.9 L RDW 22.2 H Plt Count 147 L MPV 9.4 Prelim Diff (Auto) Slide review pending Neut % (Auto) 95.6 H Lymph % (Auto) 2.1 L [place] % (Auto) 2.0 Eos % (Auto) 0.1 Baso % (Auto) 0.2 Neut # (Auto) 10.8 H Lymph # (Auto) 0.2 L [place] # (Auto) 0.2 Eos # (Auto) 0.0 Baso # (Auto) 0.0 WBC Differential . Diff Scan Auto diff confirmed Differential Comment . Toxic Granulation Toxic Vacuolation Platelet Estimate Platelet Morphology Puncture Site Left radial Left radial Patient Temperature 98.6 98.6 O2 Saturation 88 L* 96 ABG pH 7.56 H* 7.45 H ABG pCO2 29 L 37 L ABG pO2 54 L* 101 ABG HCO3 26 25 ABG O2 Content 14.4 14.9 ABG Base Excess 3.6 H 1.4 ABG Methemoglobin 0.7 0.8 Sher Test Present Present Hemoglobin 11.6 L 10.9 L Carboxyhemoglobin 1.9 1.7 O2 Delivery Device Bipap Bipap Vent Setting 16/8 Inspired O2 40 40 Critical Value Yes No Sodium Potassium Chloride Carbon Dioxide Anion Gap BUN Creatinine Estimated GFR POC Glucose Random Glucose Calcium Total Bilirubin AST ALT Alkaline Phosphatase Total Protein Albumin Urine Color Urine Clarity Urine pH Ur Specific [place] Urine Protein Urine Glucose (UA) Urine Ketones Urine Occult Blood Urine Nitrate Urine Bilirubin Urine Urobilinogen Ur Leukocyte Esterase Urine RBC Urine WBC Urine Bacteria Hyaline Casts Micro UA Comment Urine Culture Comments 01/13/18 15:00 WBC RBC Hgb Hct MCV MCH MCHC RDW Plt Count MPV Prelim Diff (Auto) Neut % (Auto) Lymph % (Auto) [place] % (Auto) Eos % (Auto) Baso % (Auto) Neut # (Auto) Lymph # (Auto) [place] # (Auto) Eos # (Auto) Baso # (Auto) WBC Differential Diff Scan Differential Comment Toxic Granulation Toxic Vacuolation Platelet Estimate Platelet Morphology Puncture Site Patient Temperature O2 Saturation ABG pH ABG pCO2 ABG pO2 ABG HCO3 ABG O2 Content ABG Base Excess ABG Methemoglobin Sher Test Hemoglobin Carboxyhemoglobin O2 Delivery Device Vent Setting Inspired O2 Critical Value Sodium Potassium Chloride Carbon Dioxide Anion Gap BUN Creatinine Estimated GFR POC Glucose Random Glucose Calcium Total Bilirubin AST ALT Alkaline Phosphatase Total Protein Albumin Urine Color Yellow Urine Clarity Hazy H Urine pH 5.0 Ur Specific [place] 1.017 Urine Protein 30 H Urine Glucose (UA) 150 H Urine Ketones Negative Urine Occult Blood Moderate H Urine Nitrate Negative Urine Bilirubin Negative Urine Urobilinogen Less than 2 Ur Leukocyte Esterase Negative Urine RBC 3 Urine WBC 6 H Urine Bacteria Occasional H Hyaline Casts 12 Micro UA Comment Culture not ind Urine Culture Comments Culture not ind - Imaging Impressions Chest X-Ray 01/12/18 22:37 CONCLUSION: No focal infiltrates seen. Chronic scarring or atelectasis in the lower lungs. Assessment and Plan - Plan 62-year-old man with Acute hypoxic respiratory failure COPD exacerbation Pulmonary hypertension Status post extubation on 12/31/2017 Continue oxygen support as needed Continue steroid taper, prednisone 5 mg daily Continue scheduled breathing treatments, continue Symbicort. Continue BiPAP at bedtime as needed Appreciate input from pulmonary medicine Obstructive sleep apnea Obesity hypoventilation syndrome Continue BiPAP at night Hypertension Continue baseline treatment Follow blood pressures Hyperlipidemia Continue present treatment Follow as an outpatient Acute renal failure ATN Hemodialysis per nephrology Thursday Plan for permacath placement January 14, 2018 Possible small CVA Daily aspirin Chronic HCV Anxiety disorder on chronic benzos Depression Chronic pain syndrome and chronic opiate continue Percocet Diabetes mellitus type 2 Insulin sliding scale with long-acting insulin and start high insulin sliding scale History of HIT Follow platelets Sacral decubitus wound Appreciate input from wound care nurse History of MGUS DVT prophylaxis Chest wall mass Biopsy once stable
--- NOTE | 2018-01-13 16:43 | P.DIET ---
Nutritional Evaluation Type of nutrition evaluation: follow-up Nutrition consult regarding: Diet Evaluation Objective - Diagnosis Respiratory Distress, CHF, Hypoxia - Objective % IBW: 163 Body Weight Used for Calculations: IBW Energy Needs - Lower Range (kCal/kg): 25 Energy Needs - Upper Range (kCal/kg): 30 Lower Limit kCal/kg (kCals): 1,888 Upper Limit kCal/kg (kCals): 2,265 Lower Limit Protein Factor (Grams per Kg): 1.2 Upper Limit Protein Factor (Grams per Kg): 1.5 Lower Protein Needs (Protein): 91 Upper Protein Needs (Protein): 113 Dietitian Reviewed in Medical Record: Current diet, Curent medications, Intake & Output, Labs, Wound/DTI Diet Order: 2gmNa, 50meqK, mech soft w/honey thick liquids Oral Diet Intake Amount: Good 75-90% Wound Care Note: 01/13 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 01/12 Halicat was called for respiratory distress. Pt's renal function is worsening, had HD 01/12. Prior to Halicat, pt was eating 75-100% of his meals. PO intake today has been poor. Will provide pt with Nepro bid, each bottle provides 425 kcals and 19 gms protein. Reviewed WOC note 01/13. Will continue to monitor po intake, clinical course. Recommendations: 2gmNa, 50 meqK, mech soft diet with honey thick liquids Adequate po intake has not yet been established Will provide Nepro bid Dietitian following Dietitian to Monitor: Lab values, Renal labs, Supplement acceptance, Intake & Output, Diet tolerance, Weight change, PO Intake, Medical course
[2018-01-13] MEDS ORDERED: Insulin NovoLIN Regular Correctional Sugar Inj SQ SCH (17:00)
[2018-01-13] MEDS ORDERED: Insulin NovoLOG Aspart Correctional Sugar Inj SQ SCH (17:00)
[2018-01-13] MEDS: Insulin NovoLOG Aspart Correctional Sugar Inj SQ SCH ×2 (17:45→22:02)
[2018-01-13] MEDS: Dextrose 5% in Water Inj 1,000 ML IV.CONT SCH (21:43)
[2018-01-14] MEDS: Oral Hygiene Kit OROPHARYNG SCH ×5 (04:40→18:21)
[2018-01-14] MEDS: Dextrose 5% in Water Inj 1,000 ML IV.CONT SCH ×2 (06:30→06:31)
[2018-01-14] MEDS: oxyCODONE/Acetaminophen 10/325 Tablet PO PRN ×2 (08:00→21:52)
[2018-01-14] MEDS ORDERED: ceFAZolin 2 GM Premix Inj 2 GM/50 ML PIGGYBACK IV.SIG SCH (08:00)
[2018-01-14] MEDS ORDERED: Vancomycin Inj 1 GM/200 ML PIGGYBACK IV.SIG SCH (08:00)
[2018-01-14] MEDS: Chlorhexidine 0.12% Oral Kit 15 ML UDC SWISH-SPIT SCH ×2 (09:22→21:54)
[2018-01-14 09:33] LABS: Baso % (Auto) 0.2 % (0.0-2.0); Eos % (Auto) 0.2 % (0.0-4.0); Hematocrit 41.2 % (39.0-51.0); Hemoglobin 12.5 gm/dL (13.0-17.0); Lymph % (Auto) 5.8 % (9.0-44.0); Mean Corpuscular Hemoglobin 21.2 pg (27.0-34.0); Mean Corpuscular Volume 70.1 fL (80.0-100.0); Mean Platelet Volume 9.1 fL (7.0-11.0); Mono # (Auto) 1.3 th/mm3 (0.0-0.9); Neut # (Auto) 14.3 th/mm3 (1.8-7.7); Neut % (Auto) 85.8 % (16.0-70.0); Platelet Count 183 th/mm3 (150-450); Red Blood Count 5.89 mil/mm3 (4.50-5.90); Red Cell Distribution Width 22.1 % (11.6-17.2); White Blood Count 16.6 th/mm3 (4.0-11.0)
[2018-01-14 09:38] LABS: Mean Corpuscular HGB Conc 30.3 % (32.0-36.0)
[2018-01-14 09:44] LABS: Carbon Dioxide 23.2 meq/L (21.0-32.0); Potassium 4.1 meq/L (3.5-5.1)
[2018-01-14] MEDS: Famotidine 20 MG Tablet PO SCH ×2 (10:22→21:53)
[2018-01-14] MEDS: predniSONE 5 MG Tablet PO SCH (10:22)
[2018-01-14] MEDS: Senna/Docusate Sodium 8.6/50 MG Tablet PO SCH ×2 (10:22→21:55)
[2018-01-14] MEDS: Insulin Detemir Inj 1,000 UNIT/10 ML Vial SQ SCH ×2 (10:23→21:54)
[2018-01-14] MEDS: Calcium Acetate 667 MG Capsule PO SCH ×4 (10:23→18:20)
[2018-01-14 10:28] LABS: Ovalocytes 1+
[2018-01-14 10:29] LABS: Target Cells 1+
[2018-01-14] MEDS: Budesonide-Formoterol 160/4.5 MCG 6 GM Inhaler INH SCH ×3 (10:29→21:55)
[2018-01-14] MEDS: Insulin NovoLOG Aspart Correctional Sugar Inj SQ SCH ×4 (10:29→23:12)
[2018-01-14] MEDS: Artificial Tears Opth Oint 3.5 GM Tube EACH EYE SCH ×2 (10:30→21:54)
--- NOTE | 2018-01-14 11:56 | P.PN ---
Subjective Interval history: Follow-up acute hypoxic respiratory failure/acute renal failure on hemodialysis January 13, 2018-Eddie was called in last night secondary to respiratory failure however improved. Patient remains oliguric with worsening renal function. Elevated blood glucose January 14, 2018-patient seen and examined, reports some improvement of shortness of breath and denies any acute event overnight. Physical Exam Vital signs: Vital Signs 01/13/18 12:00 01/13/18 16:00 01/13/18 20:00 Temperature 98.0 F 97.7 F 98.8 F Pulse Rate 107 H 92 H 86 Respiratory Rate 20 20 Blood Pressure 179/88 H 94/82 L 156/86 H Pulse Oximetry 94 L 96 94 L 01/13/18 20:05 01/13/18 20:06 01/14/18 04:00 Temperature 97.4 F L Pulse Rate 84 83 Respiratory Rate 18 18 Blood Pressure 105/71 Pulse Oximetry 96 99 01/14/18 04:05 01/14/18 08:00 01/14/18 08:39 Temperature 97.9 F Pulse Rate 92 H 96 H Respiratory Rate 18 17 Blood Pressure 110/72 Pulse Oximetry 99 95 95 Intake & Output 01/13/18 01/14/18 01/14/18 18:59 06:59 18:59 Intake Total 1600 / 1600 1000 / 1000 Output Total 500 / 500 700 / 700 Balance 1100 / 1100 300 / 300 Weight 106.9 kg Intake: IV 1000 / 1000 1000 / 1000 D5W Inj 1,000 ML @ 20 mls/hr IV 1000 / 1000 1000 / 1000 .CONT .Q24H [facility] Rx#:[id number] Oral 600 / 600 0 / 0 Output: Urine 500 / 500 700 / 700 Other: # Voids 1 # Bowel Movements 0 0 Narrative: GENERAL: NAD SKIN: Warm and dry. HEAD: Normocephalic. EYES: No scleral icterus. No injection or drainage. NECK: Supple, trachea midline. No JVD or lymphadenopathy. CARDIOVASCULAR: Regular rate and rhythm without murmurs, gallops, or rubs. RESPIRATORY: Breath sounds decrease bilaterally. No accessory muscle use. GASTROINTESTINAL: Abdomen soft, non-tender, nondistended. MUSCULOSKELETAL: No cyanosis, or edema. BACK: Nontender without obvious deformity. No CVA tenderness. - Urinary Catheter Management Condom Cath placed during this visit: no Urethral indwelling: No Reason for continuing: Hourly intake/output Results - Labs CBC & Chem 7: 01/14/18 08:01 01/14/18 08:01 Laboratory Results - last 24 hr 01/13/18 01/13/18 01/13/18 15:00 15:47 21:56 WBC RBC Hgb Hct MCV MCH MCHC RDW Plt Count MPV Prelim Diff (Auto) Neut % (Auto) Lymph % (Auto) [place] % (Auto) Eos % (Auto) Baso % (Auto) Neut # (Auto) Lymph # (Auto) [place] # (Auto) Eos # (Auto) Baso # (Auto) WBC Differential Diff Scan Differential Comment Target Cells Ovalocytes Sodium Potassium Chloride Carbon Dioxide Anion Gap BUN Creatinine Estimated GFR POC Glucose 525 H* 435 H Random Glucose Calcium Urine Color Yellow Urine Clarity Hazy H Urine pH 5.0 Ur Specific [place] 1.017 Urine Protein 30 H Urine Glucose (UA) 150 H Urine Ketones Negative Urine Occult Blood Moderate H Urine Nitrate Negative Urine Bilirubin Negative Urine Urobilinogen Less than 2 Ur Leukocyte Esterase Negative Urine RBC 3 Urine WBC 6 H Urine Bacteria Occasional H Hyaline Casts 12 Micro UA Comment Culture not ind Urine Culture Comments Culture not ind 01/14/18 01/14/18 01/14/18 08:01 08:01 10:24 WBC 16.6 H RBC 5.89 Hgb 12.5 L Hct 41.2 MCV 70.1 L MCH 21.2 L MCHC 30.3 L RDW 22.1 H Plt Count 183 MPV 9.1 Prelim Diff (Auto) Slide review pending Neut % (Auto) 85.8 H Lymph % (Auto) 5.8 L [place] % (Auto) 8.0 Eos % (Auto) 0.2 Baso % (Auto) 0.2 Neut # (Auto) 14.3 H Lymph # (Auto) 1.0 [place] # (Auto) 1.3 H Eos # (Auto) 0.0 Baso # (Auto) 0.0 WBC Differential . Diff Scan Auto diff confirmed Differential Comment . Target Cells 1+ H Ovalocytes 1+ H Sodium 135 L Potassium 4.1 Chloride 95 L Carbon Dioxide 23.2 Anion Gap 17 H BUN 98 H Creatinine 3.26 H Estimated GFR 23 L POC Glucose 133 H Random Glucose 85 Calcium 10.0 Urine Color Urine Clarity Urine pH Ur Specific [place] Urine Protein Urine Glucose (UA) Urine Ketones Urine Occult Blood Urine Nitrate Urine Bilirubin Urine Urobilinogen Ur Leukocyte Esterase Urine RBC Urine WBC Urine Bacteria Hyaline Casts Micro UA Comment Urine Culture Comments Assessment and Plan - Plan 62-year-old man with Acute hypoxic respiratory failure COPD exacerbation Pulmonary hypertension Status post extubation on 12/31/2017 Continue oxygen support as needed Continue steroid taper, prednisone 5 mg daily Continue scheduled breathing treatments, continue Symbicort. Continue BiPAP at bedtime as needed Appreciate input from pulmonary medicine Obstructive sleep apnea Obesity hypoventilation syndrome Continue BiPAP at night Hypertension Continue baseline treatment Follow blood pressures Hyperlipidemia Continue present treatment Follow as an outpatient Acute renal failure ATN Hemodialysis per nephrology Thursday Plan for permacath placement today January 14, 2018 Possible small CVA Daily aspirin Chronic HCV Anxiety disorder on chronic benzos Depression Chronic pain syndrome and chronic opiate continue Percocet Diabetes mellitus type 2 High insulin sliding scale with long-acting insulin DC D5 water History of HIT Follow platelets Sacral decubitus wound Appreciate input from wound care nurse History of MGUS DVT prophylaxis Chest wall mass Biopsy once stable
[2018-01-14] MEDS: dilTIAZem 30 MG Tablet PO SCH ×4 (12:45→18:21)
[2018-01-14] MEDS: Collagenase Oint 30 GM Tube TOPICAL SCH ×2 (13:10)
[2018-01-14] MEDS ORDERED: Lidocaine 1%/Epinephrine 1:100,000 Inj 20 ML Vial ONE (13:41)
[2018-01-14] MEDS ORDERED: *Heparin 10,000 UNITS/10 ML Vial Periprocedural ONLY ONE (13:41)
--- NOTE | 2018-01-14 14:00 | P.PNNP ---
Subjective Interval history: Mild shortness of breath and productive cough. Plan for permacath placement. <Amber Thomas - Last Filed: 01/14/18 13:54> Physical Exam Vital signs: Vital Signs 01/13/18 16:00 01/13/18 20:00 01/13/18 20:05 Temperature 97.7 F 98.8 F Pulse Rate 92 H 86 Respiratory Rate 20 Blood Pressure 94/82 L 156/86 H Pulse Oximetry 96 94 L 96 01/13/18 20:06 01/14/18 04:00 01/14/18 04:05 Temperature 97.4 F L Pulse Rate 84 83 Respiratory Rate 18 18 Blood Pressure 105/71 Pulse Oximetry 99 99 01/14/18 08:00 01/14/18 08:39 01/14/18 12:00 Temperature 97.9 F 98.0 F Pulse Rate 92 H 96 H 96 H Respiratory Rate 18 17 18 Blood Pressure 110/72 98/78 L Pulse Oximetry 95 95 95 Intake & Output 01/13/18 01/14/18 01/14/18 18:59 06:59 18:59 Intake Total 1600 / 1600 1000 / 1000 Output Total 500 / 500 700 / 700 Balance 1100 / 1100 300 / 300 Weight 106.9 kg Intake: IV 1000 / 1000 1000 / 1000 D5W Inj 1,000 ML @ 20 mls/hr IV 1000 / 1000 1000 / 1000 .CONT .Q24H [facility] Rx#:[id number] Oral 600 / 600 0 / 0 Output: Urine 500 / 500 700 / 700 Other: # Voids 1 # Bowel Movements 0 0 - Constitutional no acute distress - Routine HEENT Exam Head: Present: normocephalic ENT: Present: mucous membranes moist - Routine Neck Exam Present: supple. Absent: JVD - Routine Respiratory Exam Present: decreased breath sounds, rhonchi Comments: cough - Routine Cardiovascular Exam Present: RRR. Absent: murmur - Routine Abdominal Exam Present: soft, normoactive bowel sounds - Routine Skin Exam Present: wounds - Routine Neurological Exam Present: alert - Detailed Neurological Exam: Coma Scale Eye Opening: Spontaneous - Routine Psychiatric Exam Present: normal affect, cooperative - Urinary Catheter Management Condom Cath placed during this visit: no Urethral indwelling: No Reason for continuing: Hourly intake/output <Amber Thomas - Last Filed: 01/14/18 13:54> Vital signs: Vital Signs 01/14/18 04:00 01/14/18 04:05 01/14/18 08:00 Temperature 97.4 F L 97.9 F Pulse Rate 83 92 H Respiratory Rate 18 18 Blood Pressure 105/71 110/72 Pulse Oximetry 99 99 95 01/14/18 08:39 01/14/18 12:00 01/14/18 16:00 Temperature 98.0 F 97.8 F Pulse Rate 96 H 96 H 95 H Respiratory Rate 17 18 19 Blood Pressure 98/78 L 103/77 Pulse Oximetry 95 95 96 01/14/18 20:11 Temperature Pulse Rate 107 H Respiratory Rate 18 Blood Pressure Pulse Oximetry 96 Intake & Output 01/14/18 01/14/18 01/15/18 06:59 18:59 06:59 Intake Total 1000 / 1000 480 / 480 Output Total 700 / 700 400 / 400 Balance 300 / 300 80 / 80 Weight 106.9 kg Intake: IV 1000 / 1000 D5W Inj 1,000 ML @ 20 mls/hr IV 1000 / 1000 .CONT .Q24H [facility] Rx#:[id number] Oral 0 / 0 480 / 480 Output: Urine 700 / 700 400 / 400 Other: # Bowel Movements 0 - Urinary Catheter Management Condom Cath placed during this visit: no <Paris Cueto - Last Filed: 01/14/18 22:33> Assessment and Plan - Assessment (1) Acute kidney injury Code(s): N17.9 - Acute kidney failure, unspecified Status: Acute Plan: The patient has chronic kidney disease and developed acute kidney injury. Acute renal failure with ATN because of the hypotension or possibility of contrast nephropathy with the CT angiogram done. Renal ultrasound with no hydronephrosis Heart cath pulmonary hypertension Decubitus ulcer Avoid nephrotoxic agents Dialysis TTS schedule Urinary output is improving at 1200ml/24 hours, creatinine at 3.26 today Will monitor labs, urinary output, and watch for renal recovery. Hemodialysis planned for today Labs in AM <Amber Thomas - Last Filed: 01/14/18 13:54> - Assessment (1) Acute kidney injury Code(s): N17.9 - Acute kidney failure, unspecified Status: Acute - Attending Attestation Patient seen and examined, agree with above. Need to get PermCath, patient is refusing, will D/W the family. <Paris Cueto - Last Filed: 01/14/18 22:33>
--- NOTE | 2018-01-14 15:41 | P.PN ---
Subjective Interval history: alert no destress slowly better Physical Exam Vital signs: Vital Signs 01/13/18 16:00 01/13/18 20:00 01/13/18 20:05 Temperature 97.7 F 98.8 F Pulse Rate 92 H 86 Respiratory Rate 20 Blood Pressure 94/82 L 156/86 H Pulse Oximetry 96 94 L 96 01/13/18 20:06 01/14/18 04:00 01/14/18 04:05 Temperature 97.4 F L Pulse Rate 84 83 Respiratory Rate 18 18 Blood Pressure 105/71 Pulse Oximetry 99 99 01/14/18 08:00 01/14/18 08:39 01/14/18 12:00 Temperature 97.9 F 98.0 F Pulse Rate 92 H 96 H 96 H Respiratory Rate 18 17 18 Blood Pressure 110/72 98/78 L Pulse Oximetry 95 95 95 Intake & Output 01/13/18 01/14/18 01/14/18 18:59 06:59 18:59 Intake Total 1600 / 1600 1000 / 1000 Output Total 500 / 500 700 / 700 Balance 1100 / 1100 300 / 300 Weight 106.9 kg Intake: IV 1000 / 1000 1000 / 1000 D5W Inj 1,000 ML @ 20 mls/hr IV 1000 / 1000 1000 / 1000 .CONT .Q24H [facility] Rx#:[id number] Oral 600 / 600 0 / 0 Output: Urine 500 / 500 700 / 700 Other: # Voids 1 # Bowel Movements 0 0 Narrative: GENERAL: NAD SKIN: Warm and dry. HEAD: Normocephalic. EYES: No scleral icterus. No injection or drainage. NECK: Supple, trachea midline. No JVD or lymphadenopathy. CARDIOVASCULAR: Regular rate and rhythm without murmurs, gallops, or rubs. RESPIRATORY: Breath sounds decrease bilaterally. No accessory muscle use. GASTROINTESTINAL: Abdomen soft, non-tender, nondistended. MUSCULOSKELETAL: No cyanosis, or edema. BACK: Nontender without obvious deformity. No CVA tenderness. - Urinary Catheter Management Condom Cath placed during this visit: no Urethral indwelling: No Reason for continuing: Hourly intake/output Results - Labs CBC & Chem 7: 01/14/18 08:01 01/14/18 08:01 Laboratory Results - last 24 hr 01/13/18 01/13/18 01/13/18 15:00 15:47 21:56 WBC RBC Hgb Hct MCV MCH MCHC RDW Plt Count MPV Prelim Diff (Auto) Neut % (Auto) Lymph % (Auto) [place] % (Auto) Eos % (Auto) Baso % (Auto) Neut # (Auto) Lymph # (Auto) [place] # (Auto) Eos # (Auto) Baso # (Auto) WBC Differential Diff Scan Differential Comment Target Cells Ovalocytes Sodium Potassium Chloride Carbon Dioxide Anion Gap BUN Creatinine Estimated GFR POC Glucose 525 H* 435 H Random Glucose Calcium Urine Color Yellow Urine Clarity Hazy H Urine pH 5.0 Ur Specific [place] 1.017 Urine Protein 30 H Urine Glucose (UA) 150 H Urine Ketones Negative Urine Occult Blood Moderate H Urine Nitrate Negative Urine Bilirubin Negative Urine Urobilinogen Less than 2 Ur Leukocyte Esterase Negative Urine RBC 3 Urine WBC 6 H Urine Bacteria Occasional H Hyaline Casts 12 Micro UA Comment Culture not ind Urine Culture Comments Culture not ind 01/14/18 01/14/18 01/14/18 08:01 08:01 10:24 WBC 16.6 H RBC 5.89 Hgb 12.5 L Hct 41.2 MCV 70.1 L MCH 21.2 L MCHC 30.3 L RDW 22.1 H Plt Count 183 MPV 9.1 Prelim Diff (Auto) Slide review pending Neut % (Auto) 85.8 H Lymph % (Auto) 5.8 L [place] % (Auto) 8.0 Eos % (Auto) 0.2 Baso % (Auto) 0.2 Neut # (Auto) 14.3 H Lymph # (Auto) 1.0 [place] # (Auto) 1.3 H Eos # (Auto) 0.0 Baso # (Auto) 0.0 WBC Differential . Diff Scan Auto diff confirmed Differential Comment . Target Cells 1+ H Ovalocytes 1+ H Sodium 135 L Potassium 4.1 Chloride 95 L Carbon Dioxide 23.2 Anion Gap 17 H BUN 98 H Creatinine 3.26 H Estimated GFR 23 L POC Glucose 133 H Random Glucose 85 Calcium 10.0 Urine Color Urine Clarity Urine pH Ur Specific [place] Urine Protein Urine Glucose (UA) Urine Ketones Urine Occult Blood Urine Nitrate Urine Bilirubin Urine Urobilinogen Ur Leukocyte Esterase Urine RBC Urine WBC Urine Bacteria Hyaline Casts Micro UA Comment Urine Culture Comments 01/14/18 13:10 WBC RBC Hgb Hct MCV MCH MCHC RDW Plt Count MPV Prelim Diff (Auto) Neut % (Auto) Lymph % (Auto) [place] % (Auto) Eos % (Auto) Baso % (Auto) Neut # (Auto) Lymph # (Auto) [place] # (Auto) Eos # (Auto) Baso # (Auto) WBC Differential Diff Scan Differential Comment Target Cells Ovalocytes Sodium Potassium Chloride Carbon Dioxide Anion Gap BUN Creatinine Estimated GFR POC Glucose 112 H Random Glucose Calcium Urine Color Urine Clarity Urine pH Ur Specific [place] Urine Protein Urine Glucose (UA) Urine Ketones Urine Occult Blood Urine Nitrate Urine Bilirubin Urine Urobilinogen Ur Leukocyte Esterase Urine RBC Urine WBC Urine Bacteria Hyaline Casts Micro UA Comment Urine Culture Comments Assessment and Plan - Plan impression respiratory failure copd chf renal failure [facility] obesity PLAN O2 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
[2018-01-14] MEDS: Chlorhexidine Gluconate 2% 1 Pack (2 Cloths) TOPICAL SCH ×2 (18:20→18:21)
[2018-01-15] MEDS: Dextrose 5% in Water Inj 1,000 ML IV.CONT SCH (04:42)
[2018-01-15] MEDS: Oral Hygiene Kit OROPHARYNG SCH ×4 (04:42→16:38)
[2018-01-15] MEDS: oxyCODONE/Acetaminophen 10/325 Tablet PO PRN ×2 (04:43→21:06)
[2018-01-15] MEDS: Chlorhexidine Gluconate 2% 1 Pack (2 Cloths) TOPICAL SCH (05:17)
[2018-01-15] MEDS: dilTIAZem 30 MG Tablet PO SCH ×4 (05:39→18:17)
--- NOTE | 2018-01-15 09:04 | P.PN ---
Subjective Interval history: alert no distress still week difficulty ambulating Physical Exam Vital signs: Vital Signs 01/14/18 12:00 01/14/18 16:00 01/14/18 20:00 Temperature 98.0 F 97.8 F 98.1 F Pulse Rate 96 H 95 H 111 H Respiratory Rate 18 19 18 Blood Pressure 98/78 L 103/77 116/70 Pulse Oximetry 95 96 93 L 01/14/18 20:11 01/14/18 23:36 01/15/18 00:00 Temperature 98.3 F Pulse Rate 107 H 101 H Respiratory Rate 18 18 Blood Pressure 101/67 Pulse Oximetry 96 98 91 L 01/15/18 04:00 01/15/18 08:15 Temperature 97.7 F Pulse Rate 97 H 94 H Respiratory Rate 18 16 Blood Pressure 109/66 Pulse Oximetry 96 97 Intake & Output 01/14/18 01/15/18 01/15/18 18:59 06:59 18:59 Intake Total 480 / 480 1120 / 1120 Output Total 400 / 400 0 / 0 Balance 80 / 80 1120 / 1120 Weight 106.1 kg Intake: IV 1000 / 1000 D5W Inj 1,000 ML @ 20 mls/hr IV 1000 / 1000 .CONT .Q24H [facility] Rx#:[id number] Oral 480 / 480 120 / 120 Output: Urine 400 / 400 Stool 0 / 0 Other: # Voids 6 Narrative: GENERAL: NAD SKIN: Warm and dry. HEAD: Normocephalic. EYES: No scleral icterus. No injection or drainage. NECK: Supple, trachea midline. No JVD or lymphadenopathy. CARDIOVASCULAR: Regular rate and rhythm without murmurs, gallops, or rubs. RESPIRATORY: Breath sounds decrease bilaterally. No accessory muscle use. GASTROINTESTINAL: Abdomen soft, non-tender, nondistended. MUSCULOSKELETAL: No cyanosis, or edema. BACK: Nontender without obvious deformity. No CVA tenderness. - Urinary Catheter Management Condom Cath placed during this visit: no Urethral indwelling: No Reason for continuing: Hourly intake/output Results - Labs CBC & Chem 7: 01/14/18 08:01 01/14/18 08:01 Laboratory Results - last 24 hr 01/14/18 01/14/18 01/14/18 08:01 08:01 10:24 WBC 16.6 H RBC 5.89 Hgb 12.5 L Hct 41.2 MCV 70.1 L MCH 21.2 L MCHC 30.3 L RDW 22.1 H Plt Count 183 MPV 9.1 Prelim Diff (Auto) Slide review pending Neut % (Auto) 85.8 H Lymph % (Auto) 5.8 L [place] % (Auto) 8.0 Eos % (Auto) 0.2 Baso % (Auto) 0.2 Neut # (Auto) 14.3 H Lymph # (Auto) 1.0 [place] # (Auto) 1.3 H Eos # (Auto) 0.0 Baso # (Auto) 0.0 WBC Differential . Diff Scan Auto diff confirmed Differential Comment . Target Cells 1+ H Ovalocytes 1+ H Sodium 135 L Potassium 4.1 Chloride 95 L Carbon Dioxide 23.2 Anion Gap 17 H BUN 98 H Creatinine 3.26 H Estimated GFR 23 L POC Glucose 133 H Random Glucose 85 Calcium 10.0 01/14/18 01/14/18 01/14/18 13:10 17:23 21:45 WBC RBC Hgb Hct MCV MCH MCHC RDW Plt Count MPV Prelim Diff (Auto) Neut % (Auto) Lymph % (Auto) [place] % (Auto) Eos % (Auto) Baso % (Auto) Neut # (Auto) Lymph # (Auto) [place] # (Auto) Eos # (Auto) Baso # (Auto) WBC Differential Diff Scan Differential Comment Target Cells Ovalocytes Sodium Potassium Chloride Carbon Dioxide Anion Gap BUN Creatinine Estimated GFR POC Glucose 112 H 183 H 142 H Random Glucose Calcium Assessment and Plan - Plan impression leukocytosis respiratory failure copd chf renal failure [place]AN[place] obesity PLAN O2 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 check CXRAY
[2018-01-15] MEDS: Chlorhexidine 0.12% Oral Kit 15 ML UDC SWISH-SPIT SCH ×2 (09:41→21:04)
[2018-01-15] MEDS: predniSONE 5 MG Tablet PO SCH (09:42)
[2018-01-15] MEDS: Artificial Tears Opth Oint 3.5 GM Tube EACH EYE SCH ×2 (09:42→21:04)
[2018-01-15] MEDS: Calcium Acetate 667 MG Capsule PO SCH ×3 (09:44→18:17)
[2018-01-15] MEDS: Senna/Docusate Sodium 8.6/50 MG Tablet PO SCH ×2 (09:44→21:06)
[2018-01-15] MEDS: Famotidine 20 MG Tablet PO SCH ×2 (09:44→21:06)
[2018-01-15] MEDS: Budesonide-Formoterol 160/4.5 MCG 6 GM Inhaler INH SCH ×2 (09:45→21:11)
[2018-01-15] MEDS: Collagenase Oint 30 GM Tube TOPICAL SCH ×2 (09:48)
[2018-01-15] MEDS: Insulin Detemir Inj 1,000 UNIT/10 ML Vial SQ SCH ×2 (09:49→21:05)
[2018-01-15] MEDS: Insulin NovoLOG Aspart Correctional Sugar Inj SQ SCH ×4 (09:49→21:23)
[2018-01-15 10:36] LABS: Albumin 3.5 g/dL (3.4-5.0); Calcium 9.9 mg/dL (8.5-10.1); Carbon Dioxide 24.3 meq/L (21.0-32.0); Phosphorus 3.8 mg/dL (2.5-4.9); Potassium 3.6 meq/L (3.5-5.1)
--- NOTE | 2018-01-15 10:51 | XR ---
EXAM DATE: 01/15/2018 10:31 AM EDT AGE/SEX: 62 years / Male INDICATIONS: Chronic obstructive pulmonary disease. CLINICAL DATA: This is the patient's subsequent encounter. Patient reports that signs and symptoms h ave been present for 2 weeks and indicates a pain score of 0/10. MEDICAL/SURGICAL HISTORY: Diabetes mellitus type II. Chronic obstructive pulmonary disease. G astroesophageal reflux disease. Myocardial infarction. Right ankle and bilateral cataracts. Tonsille ctomy. COMPARISON: [facility] [place], CHEST 1V SINGLE AP, 01/12/2018. . FINDINGS: There is blunting of the left costophrenic angle consistent with effusion. Right lung is grossly jose r. Cardiac contours are stable and satisfactory. CONCLUSION: Small left pleural effusion Electronically signed by: Romel Hernandez MD 01/15/2018 10:49 AM EDT
--- NOTE | 2018-01-15 12:08 | P.PNNP ---
Subjective Interval history: Patient is very soft spoken, has agreed to get permacath today. Hemodialysis will be later today. Complaining of back and wound discomfort. <Amber Thomas - Last Filed: 01/15/18 12:05> Physical Exam Vital signs: Vital Signs 01/14/18 16:00 01/14/18 20:00 01/14/18 20:11 Temperature 97.8 F 98.1 F Pulse Rate 95 H 111 H 107 H Respiratory Rate 19 18 18 Blood Pressure 103/77 116/70 Pulse Oximetry 96 93 L 96 01/14/18 23:36 01/15/18 00:00 01/15/18 04:00 Temperature 98.3 F 97.7 F Pulse Rate 101 H 97 H Respiratory Rate 18 18 Blood Pressure 101/67 109/66 Pulse Oximetry 98 91 L 96 01/15/18 08:00 01/15/18 08:15 Temperature 97.6 F Pulse Rate 113 H 94 H Respiratory Rate 16 16 Blood Pressure 159/79 H Pulse Oximetry 97 97 Intake & Output 01/14/18 01/15/18 01/15/18 18:59 06:59 18:59 Intake Total 480 / 480 1120 / 1120 Output Total 400 / 400 0 / 0 Balance 80 / 80 1120 / 1120 Weight 106.1 kg Intake: IV 1000 / 1000 D5W Inj 1,000 ML @ 20 mls/hr IV 1000 / 1000 .CONT .Q24H [facility] Rx#:[id number] Oral 480 / 480 120 / 120 Output: Urine 400 / 400 Stool 0 / 0 Other: # Voids 6 - Constitutional no acute distress - Routine HEENT Exam Head: Present: normocephalic ENT: Present: mucous membranes moist - Routine Neck Exam Absent: JVD - Routine Respiratory Exam Present: decreased breath sounds, rhonchi. Absent: wheezes, crackles - Routine Cardiovascular Exam Present: RRR. Absent: murmur - Routine Abdominal Exam Present: soft, normoactive bowel sounds Comments: large - Routine Extremities Exam Present: edema Comments: dependent - Routine Skin Exam Present: warm, wounds - Routine Neurological Exam Present: alert - Urinary Catheter Management Condom Cath placed during this visit: no Urethral indwelling: No Reason for continuing: Hourly intake/output <Amber Thomas - Last Filed: 01/15/18 12:05> Vital signs: Vital Signs 01/14/18 20:00 01/14/18 20:11 01/14/18 23:36 Temperature 98.1 F Pulse Rate 111 H 107 H Respiratory Rate 18 18 Blood Pressure 116/70 Pulse Oximetry 93 L 96 98 01/15/18 00:00 01/15/18 04:00 01/15/18 08:00 Temperature 98.3 F 97.7 F 97.6 F Pulse Rate 101 H 97 H 113 H Respiratory Rate 18 18 16 Blood Pressure 101/67 109/66 159/79 H Pulse Oximetry 91 L 96 97 01/15/18 08:15 01/15/18 16:00 Temperature 98.5 F Pulse Rate 94 H 114 H Respiratory Rate 16 22 Blood Pressure 113/88 Pulse Oximetry 97 95 Intake & Output 01/14/18 01/15/18 01/15/18 18:59 06:59 18:59 Intake Total 480 / 480 1120 / 1120 Output Total 400 / 400 0 / 0 Balance 80 / 80 1120 / 1120 Weight 106.1 kg Intake: IV 1000 / 1000 D5W Inj 1,000 ML @ 20 mls/hr IV 1000 / 1000 .CONT .Q24H [facility] Rx#:[id number] Oral 480 / 480 120 / 120 Output: Urine 400 / 400 Stool 0 / 0 Other: # Voids 6 - Urinary Catheter Management Condom Cath placed during this visit: no <Paris Cueto - Last Filed: 01/15/18 16:39> Assessment and Plan - Assessment (1) Acute kidney injury Code(s): N17.9 - Acute kidney failure, unspecified Status: Acute Plan: The patient has chronic kidney disease and developed acute kidney injury. Acute renal failure with ATN because of the hypotension or possibility of contrast nephropathy with the CT angiogram done. Renal ultrasound with no hydronephrosis Heart cath pulmonary hypertension Decubitus ulcer Avoid nephrotoxic agents Dialysis TTS schedule however refused vas cath yesterday so dialysis was not done. Urinary output oliguric at 400 ml/24 hours, creatinine at 3.29 today Will monitor labs, urinary output, and watch for renal recovery. Hemodialysis planned for today Labs in AM <Amber Thomas - Last Filed: 01/15/18 12:05> - Assessment (1) Acute kidney injury Code(s): N17.9 - Acute kidney failure, unspecified Status: Acute - Attending Attestation Patient seen and examined, agree with above. Patient has seizure like activity, now awaiting EEG. PermCath not done for that reason. The Creatinine is same at 3.2, possibly has some renal recovery. K is normal, will hold HD and PermCath for now. Follow BMP in AM. <Paris Cueto - Last Filed: 01/15/18 16:39>
--- NOTE | 2018-01-15 13:00 | P.PN ---
Subjective Interval history: Follow-up acute hypoxic respiratory failure/acute renal failure on hemodialysis January 13, 2018-C[facility] was called in last night secondary to respiratory failure however improved. Patient remains oliguric with worsening renal function. Elevated blood glucose January 14, 2018-patient seen and examined, reports some improvement of shortness of breath and denies any acute event overnight. January 15, 2018-patient seen and examined, states he would like to be discharged home. Initially patient refused placement of permacath yesterday January 14, 2018, however today states he will have it done. Physical Exam Vital signs: Vital Signs 01/14/18 16:00 01/14/18 20:00 01/14/18 20:11 Temperature 97.8 F 98.1 F Pulse Rate 95 H 111 H 107 H Respiratory Rate 19 18 18 Blood Pressure 103/77 116/70 Pulse Oximetry 96 93 L 96 01/14/18 23:36 01/15/18 00:00 01/15/18 04:00 Temperature 98.3 F 97.7 F Pulse Rate 101 H 97 H Respiratory Rate 18 18 Blood Pressure 101/67 109/66 Pulse Oximetry 98 91 L 96 01/15/18 08:00 01/15/18 08:15 Temperature 97.6 F Pulse Rate 113 H 94 H Respiratory Rate 16 16 Blood Pressure 159/79 H Pulse Oximetry 97 97 Intake & Output 01/14/18 01/15/18 01/15/18 18:59 06:59 18:59 Intake Total 480 / 480 1120 / 1120 Output Total 400 / 400 0 / 0 Balance 80 / 80 1120 / 1120 Weight 106.1 kg Intake: IV 1000 / 1000 D5W Inj 1,000 ML @ 20 mls/hr IV 1000 / 1000 .CONT .Q24H [facility] Rx#:[id number] Oral 480 / 480 120 / 120 Output: Urine 400 / 400 Stool 0 / 0 Other: # Voids 6 Narrative: GENERAL: NAD SKIN: Warm and dry. HEAD: Normocephalic. EYES: No scleral icterus. No injection or drainage. NECK: Supple, trachea midline. No JVD or lymphadenopathy. CARDIOVASCULAR: Regular rate and rhythm without murmurs, gallops, or rubs. RESPIRATORY: Breath sounds decrease bilaterally. No accessory muscle use. GASTROINTESTINAL: Abdomen soft, non-tender, nondistended. MUSCULOSKELETAL: No cyanosis, or edema. BACK: Nontender without obvious deformity. No CVA tenderness. - Urinary Catheter Management Condom Cath placed during this visit: no Urethral indwelling: No Reason for continuing: Hourly intake/output Results - Labs CBC & Chem 7: 01/14/18 08:01 01/15/18 08:59 Laboratory Results - last 24 hr 01/14/18 01/14/18 01/14/18 13:10 17:23 21:45 Sodium Potassium Chloride Carbon Dioxide Anion Gap BUN Creatinine Estimated GFR POC Glucose 112 H 183 H 142 H Random Glucose Calcium Phosphorus Albumin 01/15/18 01/15/18 08:59 09:49 Sodium 135 L Potassium 3.6 Chloride 97 L Carbon Dioxide 24.3 Anion Gap 14 BUN 108 H Creatinine 3.29 H Estimated GFR 23 L POC Glucose 136 H Random Glucose 75 Calcium 9.9 Phosphorus 3.8 Albumin 3.5 - Imaging Impressions Chest X-Ray 01/15/18 00:00 CONCLUSION: Small left pleural effusion Assessment and Plan - Plan 62-year-old man with Acute hypoxic respiratory failure COPD exacerbation Pulmonary hypertension Status post extubation on 12/31/2017 Continue oxygen support as needed Continue steroid taper, prednisone 5 mg daily Continue scheduled breathing treatments, continue Symbicort. Continue BiPAP at bedtime as needed Appreciate input from pulmonary medicine Repeat chest x-ray January 15, 2018 with finding of small left pleural effusion Obstructive sleep apnea Obesity hypoventilation syndrome Continue BiPAP at night Hypertension Continue baseline treatment Follow blood pressures Hyperlipidemia Continue present treatment Follow as an outpatient Acute renal failure ATN Hemodialysis per nephrology Thursday Plan for permacath placement today January 15, 2018 Possible small CVA Daily aspirin Chronic HCV Anxiety disorder on chronic benzos Depression Chronic pain syndrome and chronic opiate continue Percocet Diabetes mellitus type 2 High insulin sliding scale with long-acting insulin DC D5 water History of HIT Follow platelets Sacral decubitus wound Appreciate input from wound care nurse History of MGUS DVT prophylaxis Chest wall mass Biopsy once stable
[2018-01-15] MEDS ORDERED: Vancomycin Inj 1,000 MG in Sodium Chlor 0.9% Inj 250 ML IV.SIG SCH (14:30)
[2018-01-16] MEDS: Oral Hygiene Kit OROPHARYNG SCH ×4 (01:55→18:42)
[2018-01-16] MEDS: dilTIAZem 30 MG Tablet PO SCH ×4 (03:26→18:46)
[2018-01-16] MEDS: Dextrose 5% in Water Inj 1,000 ML IV.CONT SCH (06:11)
[2018-01-16] MEDS: Chlorhexidine Gluconate 2% 1 Pack (2 Cloths) TOPICAL SCH (06:12)
[2018-01-16] MEDS: Senna/Docusate Sodium 8.6/50 MG Tablet PO SCH ×2 (09:22→21:52)
[2018-01-16] MEDS: predniSONE 5 MG Tablet PO SCH (09:22)
[2018-01-16] MEDS: oxyCODONE/Acetaminophen 10/325 Tablet PO PRN ×3 (09:23→18:37)
[2018-01-16] MEDS: Calcium Acetate 667 MG Capsule PO SCH ×3 (09:23→18:47)
[2018-01-16] MEDS: Famotidine 20 MG Tablet PO SCH ×2 (09:23→21:52)
[2018-01-16] MEDS: Collagenase Oint 30 GM Tube TOPICAL SCH ×2 (09:23→11:08)
[2018-01-16] MEDS: Insulin NovoLOG Aspart Correctional Sugar Inj SQ SCH ×4 (11:06→21:55)
[2018-01-16] MEDS: Artificial Tears Opth Oint 3.5 GM Tube EACH EYE SCH ×2 (11:07→22:01)
[2018-01-16] MEDS: Budesonide-Formoterol 160/4.5 MCG 6 GM Inhaler INH SCH ×2 (11:07→21:54)
[2018-01-16] MEDS: Insulin Detemir Inj 1,000 UNIT/10 ML Vial SQ SCH ×2 (11:08→21:56)
[2018-01-16] MEDS: Chlorhexidine 0.12% Oral Kit 15 ML UDC SWISH-SPIT SCH ×2 (11:08→21:57)
--- NOTE | 2018-01-16 13:37 | P.PN ---
Subjective Interval history: Follow-up acute hypoxic respiratory failure/acute renal failure on hemodialysis January 13, 2018-[facility] was called in last night secondary to respiratory failure however improved. Patient remains oliguric with worsening renal function. Elevated blood glucose January 14, 2018-patient seen and examined, reports some improvement of shortness of breath and denies any acute event overnight. January 15, 2018-patient seen and examined, states he would like to be discharged home. Initially patient refused placement of permacath yesterday January 14, 2018, however today states he will have it done. January 16, 2018-patient seen and examined, requiring BiPAP at night, still speaking full soft and inaudible voice. No report of seizure-like activity Physical Exam Vital signs: Vital Signs 01/15/18 16:00 01/15/18 19:12 01/15/18 19:13 Temperature 98.5 F Pulse Rate 114 H 117 H Respiratory Rate 22 18 Blood Pressure 113/88 Pulse Oximetry 95 99 01/15/18 20:00 01/16/18 00:00 01/16/18 00:30 Temperature 99.3 F 100.2 F H Pulse Rate 112 H 110 H Respiratory Rate 20 20 Blood Pressure 107/67 94/62 L Pulse Oximetry 93 L 95 94 L 01/16/18 04:15 01/16/18 05:35 01/16/18 08:00 Temperature 98.2 F 98.2 F Pulse Rate 115 H 103 H Respiratory Rate 20 21 Blood Pressure 96/68 L 91/62 L Pulse Oximetry 95 95 98 01/16/18 09:12 Temperature Pulse Rate 109 H Respiratory Rate 20 Blood Pressure Pulse Oximetry 95 Intake & Output 01/15/18 01/16/18 01/16/18 18:59 06:59 18:59 Intake Total 1000 / 1000 Balance 1000 / 1000 Weight 108.9 kg Intake: IV 1000 / 1000 D5W Inj 1,000 ML @ 20 mls/hr IV 1000 / 1000 .CONT .Q24H [facility] Rx#:[id number] Other: # Incontinent Voids 3 Narrative: GENERAL: NAD SKIN: Warm and dry. HEAD: Normocephalic. EYES: No scleral icterus. No injection or drainage. NECK: Supple, trachea midline. No JVD or lymphadenopathy. CARDIOVASCULAR: Regular rate and rhythm without murmurs, gallops, or rubs. RESPIRATORY: Breath sounds decrease bilaterally. No accessory muscle use. GASTROINTESTINAL: Abdomen soft, non-tender, nondistended. MUSCULOSKELETAL: No cyanosis, or edema. BACK: Nontender without obvious deformity. No CVA tenderness. - Urinary Catheter Management Condom Cath placed during this visit: no Urethral indwelling: No Reason for continuing: Hourly intake/output Results - Labs CBC & Chem 7: 01/14/18 08:01 01/15/18 08:59 Laboratory Results - last 24 hr 01/15/18 01/15/18 01/15/18 13:45 18:20 18:28 POC Glucose 94 64 L 56 L 01/15/18 01/15/18 01/15/18 18:35 18:52 20:58 POC Glucose 59 L 90 138 H 01/16/18 01/16/18 08:40 12:31 POC Glucose 77 94 Assessment and Plan - Plan 62-year-old man with Acute hypoxic respiratory failure COPD exacerbation Pulmonary hypertension Status post extubation on 12/31/2017 Continue oxygen support as needed Continue steroid taper, prednisone 5 mg daily Continue scheduled breathing treatments, continue Symbicort. Continue BiPAP at bedtime as needed Appreciate input from pulmonary medicine Repeat chest x-ray January 15, 2018 with finding of small left pleural effusion Continue BiPAP at bedtime Obstructive sleep apnea Obesity hypoventilation syndrome Continue BiPAP at night Hypertension Continue baseline treatment Follow blood pressures Hyperlipidemia Continue present treatment Follow as an outpatient Acute renal failure ATN Hemodialysis per nephrology Thursday Plan for permacath placement yesterday January 15, 2018, however this was not done Possible small CVA Daily aspirin Chronic HCV Anxiety disorder on chronic benzos Depression Chronic pain syndrome and chronic opiate continue Percocet Diabetes mellitus type 2 High insulin sliding scale with long-acting insulin Questionable seizure-like activity EEG was ordered yesterday January 15, 2018 History of HIT Follow platelets Sacral decubitus wound Appreciate input from wound care nurse History of MGUS DVT prophylaxis Chest wall mass Biopsy once stable
--- NOTE | 2018-01-16 22:28 | P.PNNP ---
Subjective Interval history: no acute issues, remains lethargic Physical Exam Vital signs: Vital Signs 01/16/18 00:00 01/16/18 00:30 01/16/18 04:15 Temperature 100.2 F H Pulse Rate 110 H Respiratory Rate 20 Blood Pressure 94/62 L Pulse Oximetry 95 94 L 95 01/16/18 05:35 01/16/18 08:00 01/16/18 09:12 Temperature 98.2 F 98.2 F Pulse Rate 115 H 103 H 109 H Respiratory Rate 20 21 20 Blood Pressure 96/68 L 91/62 L Pulse Oximetry 95 98 95 01/16/18 12:00 01/16/18 16:00 01/16/18 19:29 Temperature 98.4 F 97.9 F Pulse Rate 106 H 102 H Respiratory Rate 20 21 Blood Pressure 106/59 L 134/63 Pulse Oximetry 100 94 L 94 L 01/16/18 19:30 Temperature Pulse Rate 102 H Respiratory Rate 20 Blood Pressure Pulse Oximetry Intake & Output 01/16/18 01/16/18 01/17/18 06:59 18:59 06:59 Intake Total 1000 / 1000 180 / 180 Balance 1000 / 1000 180 / 180 Weight 108.9 kg Intake: IV 1000 / 1000 D5W Inj 1,000 ML @ 20 mls/hr IV 1000 / 1000 .CONT .Q24H [facility] Rx#:[id number] Oral 180 / 180 Other: # Incontinent Voids 4 - Constitutional no acute distress, disheveled - Routine HEENT Exam Head: Present: normocephalic Eye: Present: EOMI - Routine Neck Exam Present: supple - Routine Respiratory Exam Present: diminished air movement - Routine Cardiovascular Exam Present: RRR - Routine Abdominal Exam Present: soft - Routine Skin Exam Present: intact - Routine Neurological Exam Present: alert - Urinary Catheter Management Condom Cath placed during this visit: no Urethral indwelling: No Reason for continuing: Hourly intake/output Assessment and Plan - Assessment (1) Acute kidney injury Code(s): N17.9 - Acute kidney failure, unspecified Status: Acute Plan: The patient has chronic kidney disease and developed acute kidney injury. Acute renal failure with ATN because of the hypotension or possibility of contrast nephropathy with the CT angiogram done. Renal ultrasound with no hydronephrosis Heart cath pulmonary hypertension Decubitus ulcer Avoid nephrotoxic agents Last HD done Jenn Refused vascath, then had seizure-like activity and permcath not done. Unclear UOP - voiding. Last creatinine 3.29 yesterday, no new labs today. Will monitor labs, urinary output, and watch for renal recovery. Labs in AM. If worsening azotemia, may need catheter and HD Thursday.
[2018-01-17] MEDS: Oral Hygiene Kit OROPHARYNG SCH ×4 (01:13→17:22)
[2018-01-17] MEDS: oxyCODONE/Acetaminophen 10/325 Tablet PO PRN ×4 (01:14→21:27)
[2018-01-17] MEDS: dilTIAZem 30 MG Tablet PO SCH ×4 (01:14→18:53)
[2018-01-17] MEDS: Dextrose 5% in Water Inj 1,000 ML IV.CONT SCH (01:21)
[2018-01-17 02:46] LABS: Hematocrit 38.3 % (39.0-51.0); Hemoglobin 11.6 gm/dL (13.0-17.0); Mean Corpuscular Hemoglobin 20.7 pg (27.0-34.0); Mean Corpuscular Volume 68.3 fL (80.0-100.0); Mean Platelet Volume 9.4 fL (7.0-11.0); Platelet Count 173 th/mm3 (150-450); Red Blood Count 5.61 mil/mm3 (4.50-5.90); Red Cell Distribution Width 21.6 % (11.6-17.2); White Blood Count 15.4 th/mm3 (4.0-11.0)
[2018-01-17 02:50] LABS: Mean Corpuscular HGB Conc 30.3 % (32.0-36.0)
[2018-01-17 02:57] LABS: Albumin 3.4 g/dL (3.4-5.0); Anion Gap 13 meq/L (5-15); Aspartate Aminotransferase 46 U/L (15-37); Blood Urea Nitrogen 114 mg/dL (7-18); Calcium 9.4 mg/dL (8.5-10.1); Carbon Dioxide 25.9 meq/L (21.0-32.0); Chloride 99 meq/L (98-107); Glomerular Filtration Rate 26 mL/min (>89); Glucose,Random 79 mg/dL (74-106); Magnesium 2.1 mg/dL (1.5-2.5); Potassium 3.9 meq/L (3.5-5.1); Sodium 138 meq/L (136-145)
[2018-01-17 03:01] LABS: Alanine Aminotransferase 104 U/L (12-78); Alkaline Phosphatase 128 U/L (45-117); Phosphorus 3.7 mg/dL (2.5-4.9); Total Protein 7.6 g/dL (6.4-8.2)
[2018-01-17] MEDS: Chlorhexidine Gluconate 2% 1 Pack (2 Cloths) TOPICAL SCH (03:54)
[2018-01-17] MEDS: Famotidine 20 MG Tablet PO SCH ×2 (09:19→21:26)
[2018-01-17] MEDS: Senna/Docusate Sodium 8.6/50 MG Tablet PO SCH ×2 (09:19→21:26)
[2018-01-17] MEDS: Calcium Acetate 667 MG Capsule PO SCH ×2 (09:19→13:43)
[2018-01-17] MEDS: predniSONE 5 MG Tablet PO SCH (09:20)
[2018-01-17] MEDS: Chlorhexidine 0.12% Oral Kit 15 ML UDC SWISH-SPIT SCH ×2 (11:26→21:27)
[2018-01-17] MEDS: Insulin NovoLOG Aspart Correctional Sugar Inj SQ SCH ×4 (11:26→21:26)
[2018-01-17] MEDS: Insulin Detemir Inj 1,000 UNIT/10 ML Vial SQ SCH ×2 (11:27→21:27)
[2018-01-17] MEDS: Artificial Tears Opth Oint 3.5 GM Tube EACH EYE SCH ×2 (11:27→21:27)
[2018-01-17] MEDS: Collagenase Oint 30 GM Tube TOPICAL SCH ×2 (11:28)
[2018-01-17] MEDS: Budesonide-Formoterol 160/4.5 MCG 6 GM Inhaler INH SCH ×2 (11:28→21:28)
--- NOTE | 2018-01-17 12:17 | P.PN ---
Subjective Interval history: Follow-up acute hypoxic respiratory failure/acute renal failure on hemodialysis January 13, 2018-[facility] was called in last night secondary to respiratory failure however improved. Patient remains oliguric with worsening renal function. Elevated blood glucose January 14, 2018-patient seen and examined, reports some improvement of shortness of breath and denies any acute event overnight. January 15, 2018-patient seen and examined, states he would like to be discharged home. Initially patient refused placement of permacath yesterday January 14, 2018, however today states he will have it done. January 16, 2018-patient seen and examined, requiring BiPAP at night, still speaking full soft and inaudible voice. No report of seizure-like activity January 17, 2018-patient seen and examined, he was in no mood to talk to MD this morning. Still with shortness of breath. No other issues Physical Exam Vital signs: Vital Signs 01/16/18 16:00 01/16/18 19:29 01/16/18 19:30 Temperature 97.9 F Pulse Rate 102 H 102 H Respiratory Rate 21 20 Blood Pressure 134/63 Pulse Oximetry 94 L 94 L 01/16/18 20:00 01/17/18 00:00 01/17/18 01:05 Temperature 98.5 F 98 F Pulse Rate 120 H 120 H Respiratory Rate 20 20 Blood Pressure 136/72 166/74 H Pulse Oximetry 94 L 87 L 98 01/17/18 04:00 01/17/18 08:13 Temperature 98.0 F Pulse Rate 100 H Respiratory Rate 18 Blood Pressure 125/72 Pulse Oximetry 97 95 Intake & Output 01/16/18 01/17/18 01/17/18 18:59 06:59 18:59 Intake Total 180 / 180 1000 / 1000 Balance 180 / 180 1000 / 1000 Weight 106.1 kg Intake: IV 1000 / 1000 D5W Inj 1,000 ML @ 20 mls/hr IV 1000 / 1000 .CONT .Q24H [facility] Rx#:[id number] Oral 180 / 180 Other: # Incontinent Voids 4 3 Narrative: GENERAL: NAD SKIN: Warm and dry. HEAD: Normocephalic. EYES: No scleral icterus. No injection or drainage. NECK: Supple, trachea midline. No JVD or lymphadenopathy. CARDIOVASCULAR: Regular rate and rhythm without murmurs, gallops, or rubs. RESPIRATORY: Breath sounds decrease bilaterally. No accessory muscle use. GASTROINTESTINAL: Abdomen soft, non-tender, nondistended. MUSCULOSKELETAL: No cyanosis, or edema. BACK: Nontender without obvious deformity. No CVA tenderness. - Urinary Catheter Management Condom Cath placed during this visit: no Urethral indwelling: No Reason for continuing: Hourly intake/output Results - Labs CBC & Chem 7: 01/17/18 02:02 01/17/18 02:02 Laboratory Results - last 24 hr 01/16/18 01/16/18 01/16/18 12:31 17:02 19:56 WBC RBC Hgb Hct MCV MCH MCHC RDW Plt Count MPV Sodium Potassium Chloride Carbon Dioxide Anion Gap BUN Creatinine Estimated GFR POC Glucose 94 98 105 Random Glucose Calcium Phosphorus Magnesium Total Bilirubin AST ALT Alkaline Phosphatase Total Protein Albumin 01/17/18 01/17/18 01/17/18 02:02 02:02 07:34 WBC 15.4 H RBC 5.61 Hgb 11.6 L Hct 38.3 L MCV 68.3 L MCH 20.7 L MCHC 30.3 L RDW 21.6 H Plt Count 173 MPV 9.4 Sodium 138 Potassium 3.9 Chloride 99 Carbon Dioxide 25.9 Anion Gap 13 BUN 114 H Creatinine 2.97 H Estimated GFR 26 L POC Glucose 109 Random Glucose 79 Calcium 9.4 Phosphorus 3.7 Magnesium 2.1 Total Bilirubin 0.8 AST 46 H ALT 104 H Alkaline Phosphatase 128 H Total Protein 7.6 D Albumin 3.4 01/17/18 11:37 WBC RBC Hgb Hct MCV MCH MCHC RDW Plt Count MPV Sodium Potassium Chloride Carbon Dioxide Anion Gap BUN Creatinine Estimated GFR POC Glucose 118 H Random Glucose Calcium Phosphorus Magnesium Total Bilirubin AST ALT Alkaline Phosphatase Total Protein Albumin Assessment and Plan - Plan 62-year-old man with Acute hypoxic respiratory failure COPD exacerbation Pulmonary hypertension Status post extubation on 12/31/2017 Continue oxygen support as needed Continue steroid taper, prednisone 5 mg daily Continue scheduled breathing treatments, continue Symbicort. Continue BiPAP at bedtime as needed Appreciate input from pulmonary medicine Repeat chest x-ray January 15, 2018 with finding of small left pleural effusion Continue BiPAP at bedtime Obstructive sleep apnea Obesity hypoventilation syndrome Continue BiPAP at night Hypertension Continue baseline treatment Hyperlipidemia Continue present treatment Follow as an outpatient Acute renal failure ATN Hemodialysis per nephrology Thursday Plan for permacath placement Possible small CVA Daily aspirin Chronic HCV Anxiety disorder on chronic benzos Depression Chronic pain syndrome and chronic opiate continue Percocet Diabetes mellitus type 2 High insulin sliding scale with long-acting insulin Questionable seizure-like activity EEG was ordered and performed January 15, 2018 History of HIT Follow platelets Sacral decubitus wound Appreciate input from wound care nurse History of MGUS DVT prophylaxis Chest wall mass Biopsy once stable
[2018-01-17] MEDS: guaiFENesin 600 MG ER Tablet PO PRN (15:00)
--- NOTE | 2018-01-17 17:49 | P.PNNP ---
Subjective Interval history: tired Physical Exam Vital signs: Vital Signs 01/16/18 19:29 01/16/18 19:30 01/16/18 20:00 Temperature 98.5 F Pulse Rate 102 H 120 H Respiratory Rate 20 20 Blood Pressure 136/72 Pulse Oximetry 94 L 94 L 01/17/18 00:00 01/17/18 01:05 01/17/18 04:00 Temperature 98 F 98.0 F Pulse Rate 120 H 100 H Respiratory Rate 20 18 Blood Pressure 166/74 H 125/72 Pulse Oximetry 87 L 98 97 01/17/18 08:13 01/17/18 12:00 Temperature 97.8 F Pulse Rate 93 H Respiratory Rate 20 Blood Pressure 114/69 Pulse Oximetry 95 96 Intake & Output 01/16/18 01/17/18 01/17/18 18:59 06:59 18:59 Intake Total 180 / 180 1000 / 1000 Balance 180 / 180 1000 / 1000 Weight 106.1 kg Intake: IV 1000 / 1000 D5W Inj 1,000 ML @ 20 mls/hr IV 1000 / 1000 .CONT .Q24H [facility] Rx#:[id number] Oral 180 / 180 Other: # Incontinent Voids 4 3 - Constitutional no acute distress - Routine HEENT Exam Head: Present: normocephalic Eye: Present: EOMI ENT: Present: mucous membranes moist - Routine Neck Exam Present: supple - Routine Respiratory Exam Present: diminished air movement - Routine Cardiovascular Exam Present: RRR - Routine Abdominal Exam Present: soft - Routine Skin Exam Present: intact - Urinary Catheter Management Condom Cath placed during this visit: no Urethral indwelling: No Reason for continuing: Hourly intake/output Assessment and Plan - Assessment (1) Acute kidney injury Code(s): N17.9 - Acute kidney failure, unspecified Status: Acute Plan: The patient has chronic kidney disease and developed acute kidney injury. Acute renal failure with ATN because of the hypotension or possibility of contrast nephropathy with the CT angiogram done. Renal ultrasound with no hydronephrosis Heart cath pulmonary hypertension Decubitus ulcer Avoid nephrotoxic agents Last HD done Thursday Refused vascath, then had seizure-like activity and permcath not done. Unclear UOP - voiding on his own Creatinine improving from 3.29 -> 2.9 today Last HD was 01/12 - may be seeing slow recovery. Continue to hold HD for now. Will monitor labs, urinary output, and watch for renal recovery. Labs in AM. If worsening azotemia, may need catheter and HD Thursday.
[2018-01-18] MEDS: dilTIAZem 30 MG Tablet PO SCH ×4 (01:26→18:13)
[2018-01-18] MEDS: Oral Hygiene Kit OROPHARYNG SCH ×4 (01:26→17:52)
[2018-01-18] MEDS: oxyCODONE/Acetaminophen 10/325 Tablet PO PRN ×4 (04:53→21:04)
[2018-01-18] MEDS: Chlorhexidine Gluconate 2% 1 Pack (2 Cloths) TOPICAL SCH (04:58)
[2018-01-18] MEDS: Dextrose 5% in Water Inj 1,000 ML IV.CONT SCH (05:00)
[2018-01-18] MEDS: Famotidine 20 MG Tablet PO SCH ×2 (09:09→21:02)
[2018-01-18] MEDS: Calcium Acetate 667 MG Capsule PO SCH ×3 (09:10→18:12)
[2018-01-18] MEDS: predniSONE 5 MG Tablet PO SCH (09:10)
[2018-01-18] MEDS: Insulin Detemir Inj 1,000 UNIT/10 ML Vial SQ SCH ×2 (09:11→21:03)
[2018-01-18] MEDS: Senna/Docusate Sodium 8.6/50 MG Tablet PO SCH ×2 (09:11→21:02)
[2018-01-18] MEDS: Insulin NovoLOG Aspart Correctional Sugar Inj SQ SCH ×4 (09:13→21:02)
[2018-01-18] MEDS: Chlorhexidine 0.12% Oral Kit 15 ML UDC SWISH-SPIT SCH ×2 (09:13→21:03)
[2018-01-18] MEDS: Artificial Tears Opth Oint 3.5 GM Tube EACH EYE SCH ×2 (09:14→21:03)
[2018-01-18] MEDS: Collagenase Oint 30 GM Tube TOPICAL SCH ×2 (09:15→10:30)
[2018-01-18 09:31] LABS: Baso # (Auto) 0.1 th/mm3 (0.0-0.2); Baso % (Auto) 0.3 % (0.0-2.0); Eos # (Auto) 0.2 th/mm3 (0.0-0.4); Eos % (Auto) 1.2 % (0.0-4.0); Hematocrit 36.7 % (39.0-51.0); Hemoglobin 11.3 gm/dL (13.0-17.0); Lymph # (Auto) 0.8 th/mm3 (1.0-4.8); Lymph % (Auto) 4.5 % (9.0-44.0); Mean Corpuscular Hemoglobin 20.9 pg (27.0-34.0); Mean Platelet Volume 9.1 fL (7.0-11.0); Mono # (Auto) 1.6 th/mm3 (0.0-0.9); Mono % (Auto) 8.9 % (0.0-8.0); Neut % (Auto) 85.1 % (16.0-70.0); Platelet Count 184 th/mm3 (150-450); Red Cell Distribution Width 21.1 % (11.6-17.2); White Blood Count 17.7 th/mm3 (4.0-11.0)
[2018-01-18 09:34] LABS: Mean Corpuscular HGB Conc 30.7 % (32.0-36.0)
[2018-01-18 09:57] LABS: Calcium 9.5 mg/dL (8.5-10.1); Carbon Dioxide 25.7 meq/L (21.0-32.0); Potassium 3.8 meq/L (3.5-5.1)
[2018-01-18 10:29] LABS: Platelet Estimate Normal (Normal); Platelet Morphology Normal (Normal); Target Cells 1+
[2018-01-18] MEDS: Budesonide-Formoterol 160/4.5 MCG 6 GM Inhaler INH SCH ×2 (10:30→21:09)
--- NOTE | 2018-01-18 10:40 | FL ---
EXAM DATE: 01/18/2018 10:22 AM EDT AGE/SEX: 62 years / Male INDICATIONS: Dysphagia. CLINICAL DATA: This is the patient's initial encounter. Patient reports that signs and symptoms have been present for 1 week and indicates a pain score of 0/10. MEDICAL/SURGICAL HISTORY: Diabetes mellitus type II. Chronic obstructive pulmonary disease. Ga stroesophageal reflux disease. Myocardial infarction. None. COMPARISON: No prior exams available for comparison. FLUORO TIME: 1.9 IMAGE COUNT: 1 FINDINGS: A modified barium swallow was performed with speech pathology. Patient was given a variety of liquids to swallow. Moderate silent aspiration CONCLUSION: Moderate silent aspiration. Please see consultation for speech pathology for further recommendations. Electronically signed by: Bennie Sesay MD 01/18/2018 10:38 AM EDT
--- NOTE | 2018-01-18 11:39 | P.PN ---
Subjective Interval history: Follow-up acute hypoxic respiratory failure/acute renal failure on hemodialysis January 13, 2018-[facility] was called in last night secondary to respiratory failure however improved. Patient remains oliguric with worsening renal function. Elevated blood glucose January 14, 2018-patient seen and examined, reports some improvement of shortness of breath and denies any acute event overnight. January 15, 2018-patient seen and examined, states he would like to be discharged home. Initially patient refused placement of permacath yesterday January 14, 2018, however today states he will have it done. January 16, 2018-patient seen and examined, requiring BiPAP at night, still speaking full soft and inaudible voice. No report of seizure-like activity January 17, 2018-patient seen and examined, he was in no mood to talk to MD this morning. Still with shortness of breath. No other issues January 18, 2018-patient seen and examined, Heading for barium swallow eval. Today Physical Exam Vital signs: Vital Signs 01/17/18 12:00 01/17/18 16:00 01/17/18 20:00 Temperature 97.8 F 98.3 F 97.7 F Pulse Rate 93 H 90 98 H Respiratory Rate 20 22 20 Blood Pressure 114/69 121/68 127/66 Pulse Oximetry 96 95 95 01/17/18 20:57 01/18/18 00:00 01/18/18 01:10 Temperature 97.6 F Pulse Rate 101 H Respiratory Rate 20 Blood Pressure 120/65 Pulse Oximetry 95 96 97 01/18/18 03:57 01/18/18 04:00 01/18/18 05:33 Temperature 97.1 F L Pulse Rate 109 H Respiratory Rate 20 Blood Pressure 144/64 H Pulse Oximetry 96 94 L 96 01/18/18 07:33 Temperature Pulse Rate 101 H Respiratory Rate 16 Blood Pressure Pulse Oximetry Intake & Output 01/17/18 01/18/18 01/18/18 18:59 06:59 18:59 Intake Total 180 / 180 1000 / 1000 Output Total 800 / 800 Balance 180 / 180 200 / 200 Intake: IV 1000 / 1000 D5W Inj 1,000 ML @ 20 mls/hr IV 1000 / 1000 .CONT .Q24H [facility] Rx#:[id number] Oral 180 / 180 Output: Urine Amount (Catheter) 800 / 800 Condom 800 / 800 Narrative: GENERAL: NAD SKIN: Warm and dry. HEAD: Normocephalic. EYES: No scleral icterus. No injection or drainage. NECK: Supple, trachea midline. No JVD or lymphadenopathy. CARDIOVASCULAR: Regular rate and rhythm without murmurs, gallops, or rubs. RESPIRATORY: Breath sounds decrease bilaterally. No accessory muscle use. GASTROINTESTINAL: Abdomen soft, non-tender, nondistended. MUSCULOSKELETAL: No cyanosis, or edema. BACK: Nontender without obvious deformity. No CVA tenderness. - Urinary Catheter Management Condom Cath placed during this visit: no Urethral indwelling: No Reason for continuing: Hourly intake/output Results - Labs CBC & Chem 7: 01/18/18 08:52 01/18/18 08:52 Laboratory Results - last 24 hr 01/17/18 01/17/18 01/17/18 11:37 17:18 19:34 WBC RBC Hgb Hct MCV MCH MCHC RDW Plt Count MPV Prelim Diff (Auto) Neut % (Auto) Lymph % (Auto) [place] % (Auto) Eos % (Auto) Baso % (Auto) Neut # (Auto) Lymph # (Auto) [place] # (Auto) Eos # (Auto) Baso # (Auto) WBC Differential Diff Scan Differential Comment Platelet Estimate Platelet Morphology Target Cells Sodium Potassium Chloride Carbon Dioxide Anion Gap BUN Creatinine Estimated GFR POC Glucose 118 H 223 H 134 H Random Glucose Calcium 01/18/18 01/18/18 01/18/18 07:51 08:52 08:52 WBC 17.7 H RBC 5.40 Hgb 11.3 L Hct 36.7 L MCV 68.0 L MCH 20.9 L MCHC 30.7 L RDW 21.1 H Plt Count 184 MPV 9.1 Prelim Diff (Auto) Slide review pending Neut % (Auto) 85.1 H Lymph % (Auto) 4.5 L [place] % (Auto) 8.9 H Eos % (Auto) 1.2 Baso % (Auto) 0.3 Neut # (Auto) 15.0 H Lymph # (Auto) 0.8 L [place] # (Auto) 1.6 H Eos # (Auto) 0.2 Baso # (Auto) 0.1 WBC Differential . Diff Scan Auto diff confirmed Differential Comment . Platelet Estimate Normal Platelet Morphology Normal Target Cells 1+ H Sodium 134 L Potassium 3.8 Chloride 96 L Carbon Dioxide 25.7 Anion Gap 12 BUN 122 H Creatinine 3.00 H Estimated GFR 26 L POC Glucose 151 H Random Glucose 141 H Calcium 9.5 - Imaging Impressions Videofluoroscopic Swallow 01/18/18 00:00 CONCLUSION: Moderate silent aspiration. Please see consultation for speech pathology for further recommendations. Assessment and Plan - Plan 62-year-old man with Acute hypoxic respiratory failure COPD exacerbation Pulmonary hypertension Status post extubation on 12/31/2017 Continue oxygen support as needed Continue steroid taper, prednisone 5 mg daily Continue scheduled breathing treatments, continue Symbicort. Continue BiPAP at bedtime as needed Appreciate input from pulmonary medicine Continue BiPAP at bedtime Obstructive sleep apnea Obesity hypoventilation syndrome Continue BiPAP at night Hypertension Continue baseline treatment Hyperlipidemia Continue present treatment Follow as an outpatient Acute renal failure ATN Hemodialysis per nephrology Thursday Plan for permacath placement, however patient has not been agreeable so far Possible small CVA Daily aspirin Chronic HCV Anxiety disorder on chronic benzos Depression Chronic pain syndrome and chronic opiate continue Percocet Diabetes mellitus type 2 High insulin sliding scale with long-acting insulin Questionable seizure-like activity EEG was ordered and performed January 15, 2018 History of HIT Follow platelets Sacral decubitus wound Appreciate input from wound care nurse History of MGUS DVT prophylaxis Chest wall mass Biopsy once stable Dysphagia
--- NOTE | 2018-01-18 14:39 | P.PNWCN ---
Wound Care Nurse Consult Description: Follow up of sacral wound Communicated with: Recommendation: 1. Reposition patient every 2 hours for comfort and offloading 2. Please reframing from placing patient on cotton underpads please use UltraSorb moisture wicking underpads to reduce moisture. 3. Cleanse Bilateral gluteal/denuded tissue with remedy soft cloth barrier wipes pat dry.Encrust scrotal denuded area BID (encrusting apply thin even layer and spray with Cavilon skin prep repeat x2) 4. Apply Calazime cream in thick layer to partial thickness sacral periwound area BID or as needed for loose stools. 5. Apply Santyl 2mm with lidocaine 50/50 mix to full thickness sacral wound base cover with moistened gauze/ABD change dressing daily. 5. Contact wound care if treatment fails or wounds worsen Additional information: Patient was seen today by director underwriter sales for follow up of sacral/scrotum wounds.Per RN scrotal wounds worsening.Patient alert in bed in no acute distress offloaded to left side.Dressing removed from sacral region patient noted to have a unstageable pressure injury measuring ~5.5cm x ~9.0cm x slough with a partial thickness denuded periwound measuring ~9.5cm x~13cm x <0.1cm total with unstageable injury included.Partial thickness wound base moist pink/red non granular tissue.Scant serous exudate noted with faint odor.Patient scrotum has worsening moisture friction diffuse denuded open areas in which director underwriter sales noted multiple layers of Calazime applied.Patient cleansed with remedy soft cloth wipes with discomfort noted.Scrotal area left open to air .Nurse to encrust at later time due to patient discomfort.Patient currently on K-4 surface. Wound/Pressure Injury - Patient Status Premedicated for Pain Prior to Dressing Change: No - Wound Sacrum Wound Staging: Unstageable Wound Assessment: Ongoing Wound Type: Pressure Injury Is This a Chronic Wound: Yes Requested from Provider a Wound Care Consult: No (Follow up by Iraj 01/[address]) Length: 9.5 Width: 13 Wound Bed Appearance: [place], Necrotic, Peeling Skin, Red Surrounding Tissue Appearance: Edematous, Weeping Surrounding Tissue Temperature: Warm Drainage Description: Serosanguinous Drainage Amount: Moderate Drainage Odor: Foul Odor Dressing Status: Dry & Intact Cleansing Solution: Saline Topical: Enzymatic Debridement Ointment Wound Packing Type: Gauze Pads Primary Dressing: Gauze Pad Cover Dressing: Absorbant Pad Wound Dressing Change Date: 01/18/18 Scrotum Wound Assessment: Ongoing Wound Type: Maceration Is This a Chronic Wound: Yes Requested from Provider a Wound Care Consult: No Wound Bed Appearance: [place], Red Surrounding Tissue Appearance: Edematous Surrounding Tissue Temperature: Warm Drainage Description: Sanguinous Drainage Amount: Scant Drainage Odor: Slight Odor Dressing Status: Open to Air Cleansing Solution: Saline Primary Dressing: barrier cream Wound Dressing Change Date: 01/18/18 Incision - Patient Status Premedicated for Pain Prior to Dressing Change: No
--- NOTE | 2018-01-18 15:56 | P.PNNP ---
Subjective Interval history: Patient is lethargic. Opens eyes to commands but then falls back to sleep <Amber Thomas - Last Filed: 01/18/18 15:53> Physical Exam Vital signs: Vital Signs 01/17/18 16:00 01/17/18 20:00 01/17/18 20:57 Temperature 98.3 F 97.7 F Pulse Rate 90 98 H Respiratory Rate 22 20 Blood Pressure 121/68 127/66 Pulse Oximetry 95 95 95 01/18/18 00:00 01/18/18 01:10 01/18/18 03:57 Temperature 97.6 F Pulse Rate 101 H Respiratory Rate 20 Blood Pressure 120/65 Pulse Oximetry 96 97 96 01/18/18 04:00 01/18/18 05:33 01/18/18 07:33 Temperature 97.1 F L Pulse Rate 109 H 101 H Respiratory Rate 20 16 Blood Pressure 144/64 H Pulse Oximetry 94 L 96 01/18/18 08:00 01/18/18 12:00 Temperature 98.2 F 97.9 F Pulse Rate 110 H 97 H Respiratory Rate 20 20 Blood Pressure 107/58 L 100/59 L Pulse Oximetry 96 93 L Intake & Output 01/17/18 01/18/18 01/18/18 18:59 06:59 18:59 Intake Total 180 / 180 1000 / 1000 Output Total 800 / 800 Balance 180 / 180 200 / 200 Intake: IV 1000 / 1000 D5W Inj 1,000 ML @ 20 mls/hr IV 1000 / 1000 .CONT .Q24H [facility] Rx#:[id number] Oral 180 / 180 Output: Urine Amount (Catheter) 800 / 800 Condom 800 / 800 - Constitutional no acute distress - Routine HEENT Exam Head: Present: normocephalic - Routine Neck Exam Present: supple. Absent: JVD - Routine Respiratory Exam Present: decreased breath sounds, rhonchi - Routine Cardiovascular Exam Present: RRR - Routine Abdominal Exam Present: soft, normoactive bowel sounds. Absent: tenderness - Routine Skin Exam Present: dry, warm, wounds - Routine Neurological Exam lethargic - Detailed Neurological Exam: Coma Scale Eye Opening: To sound - Urinary Catheter Management Condom Cath placed during this visit: no Urethral indwelling: No Reason for continuing: Hourly intake/output <Amber Thomas - Last Filed: 01/18/18 15:53> Vital signs: Vital Signs 01/18/18 00:00 01/18/18 01:10 01/18/18 03:57 Temperature 97.6 F Pulse Rate 101 H Respiratory Rate 20 Blood Pressure 120/65 Pulse Oximetry 96 97 96 01/18/18 04:00 01/18/18 05:33 01/18/18 07:33 Temperature 97.1 F L Pulse Rate 109 H 101 H Respiratory Rate 20 16 Blood Pressure 144/64 H Pulse Oximetry 94 L 96 01/18/18 08:00 01/18/18 12:00 01/18/18 16:00 Temperature 98.2 F 97.9 F 98.6 F Pulse Rate 110 H 97 H 91 H Respiratory Rate 20 20 Blood Pressure 107/58 L 100/59 L 85/50 L Pulse Oximetry 96 93 L 91 L 01/18/18 17:00 01/18/18 21:16 Temperature Pulse Rate 108 H Respiratory Rate 20 Blood Pressure 108/64 Pulse Oximetry 92 L Intake & Output 01/18/18 01/18/18 01/19/18 06:59 18:59 06:59 Intake Total 1000 / 1000 180 / 180 Output Total 800 / 800 250 / 250 Balance 200 / 200 -70 / -70 Intake: IV 1000 / 1000 D5W Inj 1,000 ML @ 20 mls/hr IV 1000 / 1000 .CONT .Q24H [facility] Rx#:[id number] Oral 180 / 180 Output: Urine 250 / 250 Urine Amount (Catheter) 800 / 800 Condom 800 / 800 - Urinary Catheter Management Condom Cath placed during this visit: no <Paris Cueto - Last Filed: 01/18/18 21:18> Assessment and Plan - Assessment (1) Acute kidney injury Code(s): N17.9 - Acute kidney failure, unspecified Status: Acute Plan: The patient has chronic kidney disease and developed acute kidney injury. Acute renal failure with ATN because of the hypotension or possibility of contrast nephropathy with the CT angiogram done. Renal ultrasound with no hydronephrosis Heart cath pulmonary hypertension Decubitus ulcer Avoid nephrotoxic agents Last HD done Thursday Refused vascath, then had seizure-like activity and permcath not done. Unclear UOP - voiding on his own will order strict I+O Creatinine improving from 3.29 -> 2.9 ->3.0 Last HD was 01/12 - may be seeing slow recovery. Continue to hold HD for now. Will monitor labs, urinary output, and watch for renal recovery. Labs in AM unclear of Urinary output will order strict I+O's Pending labs in AM will determine need for hemodialysis and vascular access <Amber Thomas - Last Filed: 01/18/18 15:53> - Assessment (1) Acute kidney injury Code(s): N17.9 - Acute kidney failure, unspecified Status: Acute - Attending Attestation Patient seen and examined, agree with above. Creatinine is almost same. Not eating well, urine out put decreased. Follow the urine out put and BMP. <Paris Cueto - Last Filed: 01/18/18 21:18>
--- NOTE | 2018-01-18 16:48 | P.PN ---
Subjective Interval history: OBTUNDED NO DISTRESS Physical Exam Vital signs: Vital Signs 01/17/18 20:00 01/17/18 20:57 01/18/18 00:00 Temperature 97.7 F 97.6 F Pulse Rate 98 H 101 H Respiratory Rate 20 20 Blood Pressure 127/66 120/65 Pulse Oximetry 95 95 96 01/18/18 01:10 01/18/18 03:57 01/18/18 04:00 Temperature 97.1 F L Pulse Rate 109 H Respiratory Rate 20 Blood Pressure 144/64 H Pulse Oximetry 97 96 94 L 01/18/18 05:33 01/18/18 07:33 01/18/18 08:00 Temperature 98.2 F Pulse Rate 101 H 110 H Respiratory Rate 16 20 Blood Pressure 107/58 L Pulse Oximetry 96 96 01/18/18 12:00 Temperature 97.9 F Pulse Rate 97 H Respiratory Rate 20 Blood Pressure 100/59 L Pulse Oximetry 93 L Intake & Output 01/17/18 01/18/18 01/18/18 18:59 06:59 18:59 Intake Total 180 / 180 1000 / 1000 Output Total 800 / 800 Balance 180 / 180 200 / 200 Intake: IV 1000 / 1000 D5W Inj 1,000 ML @ 20 mls/hr IV 1000 / 1000 .CONT .Q24H [facility] Rx#:[id number] Oral 180 / 180 Output: Urine Amount (Catheter) 800 / 800 Condom 800 / 800 Narrative: GENERAL: NAD SKIN: Warm and dry. HEAD: Normocephalic. EYES: No scleral icterus. No injection or drainage. NECK: Supple, trachea midline. No JVD or lymphadenopathy. CARDIOVASCULAR: Regular rate and rhythm without murmurs, gallops, or rubs. RESPIRATORY: Breath sounds decrease bilaterally. No accessory muscle use. GASTROINTESTINAL: Abdomen soft, non-tender, nondistended. MUSCULOSKELETAL: No cyanosis, or edema. BACK: Nontender without obvious deformity. No CVA tenderness. - Urinary Catheter Management Condom Cath placed during this visit: no Urethral indwelling: No Reason for continuing: Hourly intake/output Results - Labs CBC & Chem 7: 01/18/18 08:52 01/18/18 08:52 Laboratory Results - last 24 hr 01/17/18 01/17/18 01/18/18 17:18 19:34 07:51 WBC RBC Hgb Hct MCV MCH MCHC RDW Plt Count MPV Prelim Diff (Auto) Neut % (Auto) Lymph % (Auto) [place] % (Auto) Eos % (Auto) Baso % (Auto) Neut # (Auto) Lymph # (Auto) [place] # (Auto) Eos # (Auto) Baso # (Auto) WBC Differential Diff Scan Differential Comment Platelet Estimate Platelet Morphology Target Cells Sodium Potassium Chloride Carbon Dioxide Anion Gap BUN Creatinine Estimated GFR POC Glucose 223 H 134 H 151 H Random Glucose Calcium 01/18/18 01/18/18 01/18/18 08:52 08:52 11:47 WBC 17.7 H RBC 5.40 Hgb 11.3 L Hct 36.7 L MCV 68.0 L MCH 20.9 L MCHC 30.7 L RDW 21.1 H Plt Count 184 MPV 9.1 Prelim Diff (Auto) Slide review pending Neut % (Auto) 85.1 H Lymph % (Auto) 4.5 L [place] % (Auto) 8.9 H Eos % (Auto) 1.2 Baso % (Auto) 0.3 Neut # (Auto) 15.0 H Lymph # (Auto) 0.8 L [place] # (Auto) 1.6 H Eos # (Auto) 0.2 Baso # (Auto) 0.1 WBC Differential . Diff Scan Auto diff confirmed Differential Comment . Platelet Estimate Normal Platelet Morphology Normal Target Cells 1+ H Sodium 134 L Potassium 3.8 Chloride 96 L Carbon Dioxide 25.7 Anion Gap 12 BUN 122 H Creatinine 3.00 H Estimated GFR 26 L POC Glucose 157 H Random Glucose 141 H Calcium 9.5 - Imaging Impressions Videofluoroscopic Swallow 01/18/18 00:00 CONCLUSION: Moderate silent aspiration. Please see consultation for speech pathology for further recommendations. 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
[2018-01-19] MEDS: Dextrose 5% in Water Inj 1,000 ML IV.CONT SCH (00:13)
[2018-01-19] MEDS: Oral Hygiene Kit OROPHARYNG SCH ×4 (00:14→17:07)
[2018-01-19] MEDS: dilTIAZem 30 MG Tablet PO SCH ×5 (00:17→23:25)
[2018-01-19] MEDS: Chlorhexidine Gluconate 2% 1 Pack (2 Cloths) TOPICAL SCH (05:22)
[2018-01-19] MEDS: Insulin NovoLOG Aspart Correctional Sugar Inj SQ SCH ×3 (08:03→17:40)
[2018-01-19] MEDS: Famotidine 20 MG Tablet PO SCH (08:43)
[2018-01-19] MEDS: predniSONE 5 MG Tablet PO SCH (08:43)
[2018-01-19] MEDS: Calcium Acetate 667 MG Capsule PO SCH ×3 (08:43→17:40)
[2018-01-19] MEDS: Insulin Detemir Inj 1,000 UNIT/10 ML Vial SQ SCH (08:44)
[2018-01-19] MEDS: Senna/Docusate Sodium 8.6/50 MG Tablet PO SCH (08:44)
[2018-01-19] MEDS: Artificial Tears Opth Oint 3.5 GM Tube EACH EYE SCH (08:44)
[2018-01-19] MEDS: Chlorhexidine 0.12% Oral Kit 15 ML UDC SWISH-SPIT SCH (08:45)
[2018-01-19] MEDS: Collagenase Oint 30 GM Tube TOPICAL SCH ×2 (08:45)
[2018-01-19] MEDS: Budesonide-Formoterol 160/4.5 MCG 6 GM Inhaler INH SCH (08:57)
--- NOTE | 2018-01-19 10:34 | P.PNNP ---
Subjective Interval history: Speech is very quiet and difficult to understand. Labs are pending today <Amber Thomas - Last Filed: 01/19/18 10:31> Physical Exam Vital signs: Vital Signs 01/18/18 12:00 01/18/18 16:00 01/18/18 17:00 Temperature 97.9 F 98.6 F Pulse Rate 97 H 91 H Respiratory Rate 20 Blood Pressure 100/59 L 85/50 L 108/64 Pulse Oximetry 93 L 91 L 01/18/18 20:00 01/18/18 21:16 01/18/18 21:56 Temperature 100.6 F H Pulse Rate 108 H 111 H Respiratory Rate 20 19 Blood Pressure 162/68 H Pulse Oximetry 92 L 92 L 92 L 01/19/18 01:06 01/19/18 01:30 01/19/18 03:00 Temperature 98.5 F Pulse Rate 99 H Respiratory Rate 17 Blood Pressure 90/56 L Pulse Oximetry 95 89 L 97 01/19/18 04:00 01/19/18 08:00 01/19/18 08:58 Temperature 97.8 F 98.3 F Pulse Rate 97 H 108 H 103 H Respiratory Rate 17 22 14 Blood Pressure 93/60 L 115/67 Pulse Oximetry 100 94 L 94 L Intake & Output 01/18/18 01/19/18 01/19/18 18:59 06:59 18:59 Intake Total 180 / 180 1000 / 1000 Output Total 250 / 250 Balance -70 / -70 1000 / 1000 Weight 107.4 kg Intake: IV 1000 / 1000 D5W Inj 1,000 ML @ 20 mls/hr IV 1000 / 1000 .CONT .Q24H [facility] Rx#:[id number] Oral 180 / 180 Output: Urine 250 / 250 Other: # Voids 3 # Bowel Movements 0 - Constitutional no acute distress - Routine HEENT Exam Head: Present: normocephalic ENT: Present: mucous membranes dry - Routine Neck Exam Present: supple. Absent: JVD - Routine Respiratory Exam Present: decreased breath sounds, rhonchi. Absent: rales, wheezes - Routine Cardiovascular Exam Present: RRR - Routine Abdominal Exam Present: soft, normoactive bowel sounds - Routine Extremities Exam Present: edema - Routine Skin Exam Present: dry, warm, wounds - Routine Neurological Exam Present: alert - Routine Psychiatric Exam Present: cooperative - Urinary Catheter Management Condom Cath placed during this visit: no Urethral indwelling: No Reason for continuing: Hourly intake/output <Amber Thomas - Last Filed: 01/19/18 10:31> Vital signs: Vital Signs 01/18/18 21:56 01/19/18 01:06 01/19/18 01:30 Temperature 100.6 F H 98.5 F Pulse Rate 111 H 99 H Respiratory Rate 19 17 Blood Pressure 162/68 H 90/56 L Pulse Oximetry 92 L 95 89 L 01/19/18 03:00 01/19/18 04:00 01/19/18 08:00 Temperature 97.8 F 98.3 F Pulse Rate 97 H 108 H Respiratory Rate 17 22 Blood Pressure 93/60 L 115/67 Pulse Oximetry 97 100 94 L 01/19/18 08:58 01/19/18 12:00 01/19/18 16:00 Temperature 98.2 F 99.6 F Pulse Rate 103 H 107 H 115 H Respiratory Rate 14 22 22 Blood Pressure 101/55 L 120/74 Pulse Oximetry 94 L 100 98 01/19/18 20:00 01/19/18 20:29 Temperature 100.7 F H Pulse Rate 106 H 104 H Respiratory Rate 17 20 Blood Pressure 109/57 L Pulse Oximetry 94 L 94 L Intake & Output 01/19/18 01/19/18 01/20/18 06:59 18:59 06:59 Intake Total 1000 / 1000 280 / 280 Output Total 600 / 600 Balance 1000 / 1000 -320 / -320 Weight 107.4 kg Intake: IV 1000 / 1000 D5W Inj 1,000 ML @ 20 mls/hr IV 1000 / 1000 .CONT .Q24H [facility] Rx#:[id number] Oral 280 / 280 Output: Urine 600 / 600 Other: # Voids 3 # Bowel Movements 0 - Urinary Catheter Management Condom Cath placed during this visit: no <Paris Cueto - Last Filed: 01/19/18 21:41> Assessment and Plan - Assessment (1) Acute kidney injury Code(s): N17.9 - Acute kidney failure, unspecified Status: Acute Plan: The patient has chronic kidney disease and developed acute kidney injury. Acute renal failure with ATN because of the hypotension or possibility of contrast nephropathy with the CT angiogram done. Renal ultrasound with no hydronephrosis Heart cath pulmonary hypertension Decubitus ulcer Avoid nephrotoxic agents Last HD done Thursday Refused vascath, then had seizure-like activity and permcath not done. Creatinine at 3.29 -> 2.9 ->3.0 yesterday Labs pending today UOP at 250/24 hours Last HD was 01/12 - may be seeing slow recovery. Continue to hold HD for now. Will monitor labs, urinary output, and watch for renal recovery. Pending labs in AM will determine need for hemodialysis and vascular access <Amber Thomas - Last Filed: 01/19/18 10:31> - Assessment (1) Acute kidney injury Code(s): N17.9 - Acute kidney failure, unspecified Status: Acute - Attending Attestation Patient seen and examine, agree with above. Creatinine increase slightly , non oliguric. Encourage oral intake. HD is on hold for now. <Paris Cueto - Last Filed: 01/19/18 21:41>
[2018-01-19 13:56] LABS: Albumin 3.1 g/dL (3.4-5.0); Calcium 9.5 mg/dL (8.5-10.1); Carbon Dioxide 26.8 meq/L (21.0-32.0); Phosphorus 3.8 mg/dL (2.5-4.9)
--- NOTE | 2018-01-19 13:56 | P.PN ---
Subjective Interval history: Follow-up acute hypoxic respiratory failure/acute renal failure on hemodialysis January 13, 2018-Halicat was called in last night secondary to respiratory failure however improved. Patient remains oliguric with worsening renal function. Elevated blood glucose January 14, 2018-patient seen and examined, reports some improvement of shortness of breath and denies any acute event overnight. January 15, 2018-patient seen and examined, states he would like to be discharged home. Initially patient refused placement of permacath yesterday January 14, 2018, however today states he will have it done. January 16, 2018-patient seen and examined, requiring BiPAP at night, still speaking full soft and inaudible voice. No report of seizure-like activity January 17, 2018-patient seen and examined, he was in no mood to talk to MD this morning. Still with shortness of breath. No other issues January 18, 2018-patient seen and examined, Heading for barium swallow eval. Today January 19, 2018-patient seen and examined, some shortness of breath; low BP. States he does no longer want permacath placement. Physical Exam Vital signs: Vital Signs 01/18/18 16:00 01/18/18 17:00 01/18/18 20:00 Temperature 98.6 F Pulse Rate 91 H Respiratory Rate Blood Pressure 85/50 L 108/64 Pulse Oximetry 91 L 92 L 01/18/18 21:16 01/18/18 21:56 01/19/18 01:06 Temperature 100.6 F H Pulse Rate 108 H 111 H Respiratory Rate 20 19 Blood Pressure 162/68 H Pulse Oximetry 92 L 92 L 95 01/19/18 01:30 01/19/18 03:00 01/19/18 04:00 Temperature 98.5 F 97.8 F Pulse Rate 99 H 97 H Respiratory Rate 17 17 Blood Pressure 90/56 L 93/60 L Pulse Oximetry 89 L 97 100 01/19/18 08:00 01/19/18 08:58 Temperature 98.3 F Pulse Rate 108 H 103 H Respiratory Rate 22 14 Blood Pressure 115/67 Pulse Oximetry 94 L 94 L Intake & Output 01/18/18 01/19/18 01/19/18 18:59 06:59 18:59 Intake Total 180 / 180 1000 / 1000 Output Total 250 / 250 Balance -70 / -70 1000 / 1000 Weight 107.4 kg Intake: IV 1000 / 1000 D5W Inj 1,000 ML @ 20 mls/hr IV 1000 / 1000 .CONT .Q24H [facility] Rx#:[id number] Oral 180 / 180 Output: Urine 250 / 250 Other: # Voids 3 # Bowel Movements 0 Narrative: GENERAL: NAD SKIN: Warm and dry. HEAD: Normocephalic. EYES: No scleral icterus. No injection or drainage. NECK: Supple, trachea midline. No JVD or lymphadenopathy. CARDIOVASCULAR: Regular rate and rhythm without murmurs, gallops, or rubs. RESPIRATORY: Breath sounds decrease bilaterally. No accessory muscle use. GASTROINTESTINAL: Abdomen soft, non-tender, nondistended. MUSCULOSKELETAL: No cyanosis, or edema. BACK: Nontender without obvious deformity. No CVA tenderness. - Urinary Catheter Management Condom Cath placed during this visit: no Urethral indwelling: No Reason for continuing: Hourly intake/output Results - Labs CBC & Chem 7: 01/18/18 08:52 01/18/18 08:52 Laboratory Results - last 24 hr 01/18/18 01/18/18 01/19/18 16:55 19:30 07:56 POC Glucose 137 H 142 H 118 H 01/19/18 12:26 POC Glucose 162 H Assessment and Plan - Plan 62-year-old man with Acute hypoxic respiratory failure COPD exacerbation Pulmonary hypertension Status post extubation on 12/31/2017 Continue oxygen support as needed Continue steroid taper, prednisone 5 mg daily Continue scheduled breathing treatments, continue Symbicort. Continue BiPAP at bedtime as needed Appreciate input from pulmonary medicine Continue BiPAP at bedtime Obstructive sleep apnea Obesity hypoventilation syndrome Continue BiPAP at night Hypertension Continue baseline treatment Hyperlipidemia Continue present treatment Follow as an outpatient Acute renal failure ATN Hemodialysis per nephrology Thursday, however no HD since January 12, 2018 Patient has consistently refused permacath placement, interventional radiology sign off Possible small CVA Daily aspirin Chronic HCV Anxiety disorder on chronic benzos Depression Chronic pain syndrome and chronic opiate continue Percocet Diabetes mellitus type 2 High insulin sliding scale with long-acting insulin Questionable seizure-like activity EEG was ordered and performed January 15, 2018 and no seizure activity reported History of HIT Follow platelets Sacral decubitus wound Appreciate input from wound care nurse History of MGUS DVT prophylaxis Chest wall mass Biopsy once stable Dysphagia Swallow eval performed yesterday January 18, 2018
[2018-01-19 13:59] LABS: Potassium 5.3 meq/L (3.5-5.1)
--- NOTE | 2018-01-19 15:22 | P.PNPAL ---
Reason for Visit Reason for visit: a. To assist with evaluation and management of symptoms including: dyspnea, pain, debility b. To assist medical decision maker(s) with: better understanding of current medical conditions; weighing benefits/burdens of medical treatment options; making medical treatment decisions. Subjective Subjective/Interval History: Follow up today for dyspnea, pain, weakness. Pt nonverbal today on my evaluation. He is resting in bed. When asked about pain he shakes his head no. Per nursing pain assessment he rated pain an 8 last night and was administered a percocet. He is on NC 5L. Sat 94%. Denies feeling SOB during my evaluation. He does not answer further questions. PT session time limited d/t sacral wound. Prior sessions it was noted that pt is not motivated to do therapy. He is having worsening dysphagia and has been downgraded to pureed diet with honey thick, per MBS 01/18 he showed silent aspiration even with nectar thick. Family/Friend Interactions: Spoke with on phone. -Briefly reviewed Palliative care role, purpose, approach -family understanding of the current medical problems - confirmed she had noted a decline -family understanding of prognosis - he is not likely to benefit from rehab if he is not able to eat and is not motivated to do therapy -Patients goals of care as best understood from conversations-- She felt she was making her suffer and cites a conversation prior to his illness where he said "he would not want this." She said she wanted him to be comfortable and to be able to bring him home -Current medical treatment options and benefits/burdens of those options -Likely scenarios comparing ongoing aggressive care with a transition to hospice - introduced hospice philosophy - Questions answered to the best of my ability - Palliative care contact information provided Pt's proxy and expressing more comfort oriented goals. Advance Directives Significant change in goals:: Up to now goals have been aggressive. expressed She felt she was making her suffer and cites a conversation prior to his illness where he said "he would not want this." She said she wanted him to be comfortable and to be able to bring him home. Objective Vital Signs: Vital Signs 01/18/18 16:00 01/18/18 17:00 01/18/18 20:00 Temperature 98.6 F Pulse Rate 91 H Respiratory Rate Blood Pressure 85/50 L 108/64 Pulse Oximetry 91 L 92 L 01/18/18 21:16 01/18/18 21:56 01/19/18 01:06 Temperature 100.6 F H Pulse Rate 108 H 111 H Respiratory Rate 20 19 Blood Pressure 162/68 H Pulse Oximetry 92 L 92 L 95 01/19/18 01:30 01/19/18 03:00 01/19/18 04:00 Temperature 98.5 F 97.8 F Pulse Rate 99 H 97 H Respiratory Rate 17 17 Blood Pressure 90/56 L 93/60 L Pulse Oximetry 89 L 97 100 01/19/18 08:00 01/19/18 08:58 01/19/18 12:00 Temperature 98.3 F 98.2 F Pulse Rate 108 H 103 H 107 H Respiratory Rate 22 14 22 Blood Pressure 115/67 101/55 L Pulse Oximetry 94 L 94 L 100 Intake & Output 01/18/18 01/19/18 01/19/18 18:59 06:59 18:59 Intake Total 180 / 180 1000 / 1000 Output Total 250 / 250 Balance -70 / -70 1000 / 1000 Weight 107.4 kg Intake: IV 1000 / 1000 D5W Inj 1,000 ML @ 20 mls/hr IV 1000 / 1000 .CONT .Q24H [facility] Rx#:[id number] Oral 180 / 180 Output: Urine 250 / 250 Other: # Voids 3 # Bowel Movements 0 Physical Exam: CONSTITUTIONAL/GENERAL: This is an adequately nourished patient EYES: PERRL. No scleral icterus. No injection or drainage. Fundi not examined. NECK: Trachea midline. Supple, nontender. CARDIOVASCULAR: tachycardic. No JVD. Peripheral pulses symmetric RESPIRATORY/CHEST: very shallow respirations. lung sounds diminished. No adventitious sounds auscultated but pt had wet sounding cough GASTROINTESTINAL: Abdomen obese, no apparent tenderness. No palpable masses. Bowel faint MUSCULOSKELETAL: Extremities without clubbing, cyanosis, or edema. No mottling or clubbing. SKIN: warm and dry NEUROLOGICAL: mildly lethargic. cooperative PSYCHIATRIC: unable to assess; pt nonverbal Diagnostic Tests Laboratory: Laboratory Results - last 72 hr 01/16/18 01/16/18 01/17/18 17:02 19:56 02:02 WBC 15.4 H RBC 5.61 Hgb 11.6 L Hct 38.3 L MCV 68.3 L MCH 20.7 L MCHC 30.3 L RDW 21.6 H Plt Count 173 MPV 9.4 Prelim Diff (Auto) Neut % (Auto) Lymph % (Auto) [place] % (Auto) Eos % (Auto) Baso % (Auto) Neut # (Auto) Lymph # (Auto) [place] # (Auto) Eos # (Auto) Baso # (Auto) WBC Differential Diff Scan Differential Comment Platelet Estimate Platelet Morphology Target Cells Sodium Potassium Chloride Carbon Dioxide Anion Gap BUN Creatinine Estimated GFR POC Glucose 98 105 Random Glucose Calcium Phosphorus Magnesium Total Bilirubin AST ALT Alkaline Phosphatase Total Protein Albumin 01/17/18 01/17/18 01/17/18 02:02 07:34 11:37 WBC RBC Hgb Hct MCV MCH MCHC RDW Plt Count MPV Prelim Diff (Auto) Neut % (Auto) Lymph % (Auto) [place] % (Auto) Eos % (Auto) Baso % (Auto) Neut # (Auto) Lymph # (Auto) [place] # (Auto) Eos # (Auto) Baso # (Auto) WBC Differential Diff Scan Differential Comment Platelet Estimate Platelet Morphology Target Cells Sodium 138 Potassium 3.9 Chloride 99 Carbon Dioxide 25.9 Anion Gap 13 BUN 114 H Creatinine 2.97 H Estimated GFR 26 L POC Glucose 109 118 H Random Glucose 79 Calcium 9.4 Phosphorus 3.7 Magnesium 2.1 Total Bilirubin 0.8 AST 46 H ALT 104 H Alkaline Phosphatase 128 H Total Protein 7.6 D Albumin 3.4 01/17/18 01/17/18 01/18/18 17:18 19:34 07:51 WBC RBC Hgb Hct MCV MCH MCHC RDW Plt Count MPV Prelim Diff (Auto) Neut % (Auto) Lymph % (Auto) [place] % (Auto) Eos % (Auto) Baso % (Auto) Neut # (Auto) Lymph # (Auto) [place] # (Auto) Eos # (Auto) Baso # (Auto) WBC Differential Diff Scan Differential Comment Platelet Estimate Platelet Morphology Target Cells Sodium Potassium Chloride Carbon Dioxide Anion Gap BUN Creatinine Estimated GFR POC Glucose 223 H 134 H 151 H Random Glucose Calcium Phosphorus Magnesium Total Bilirubin AST ALT Alkaline Phosphatase Total Protein Albumin 01/18/18 01/18/18 01/18/18 08:52 08:52 11:47 WBC 17.7 H RBC 5.40 Hgb 11.3 L Hct 36.7 L MCV 68.0 L MCH 20.9 L MCHC 30.7 L RDW 21.1 H Plt Count 184 MPV 9.1 Prelim Diff (Auto) Slide review pending Neut % (Auto) 85.1 H Lymph % (Auto) 4.5 L [place] % (Auto) 8.9 H Eos % (Auto) 1.2 Baso % (Auto) 0.3 Neut # (Auto) 15.0 H Lymph # (Auto) 0.8 L [place] # (Auto) 1.6 H Eos # (Auto) 0.2 Baso # (Auto) 0.1 WBC Differential . Diff Scan Auto diff confirmed Differential Comment . Platelet Estimate Normal Platelet Morphology Normal Target Cells 1+ H Sodium 134 L Potassium 3.8 Chloride 96 L Carbon Dioxide 25.7 Anion Gap 12 BUN 122 H Creatinine 3.00 H Estimated GFR 26 L POC Glucose 157 H Random Glucose 141 H Calcium 9.5 Phosphorus Magnesium Total Bilirubin AST ALT Alkaline Phosphatase Total Protein Albumin 01/18/18 01/18/18 01/19/18 16:55 19:30 07:56 WBC RBC Hgb Hct MCV MCH MCHC RDW Plt Count MPV Prelim Diff (Auto) Neut % (Auto) Lymph % (Auto) [place] % (Auto) Eos % (Auto) Baso % (Auto) Neut # (Auto) Lymph # (Auto) [place] # (Auto) Eos # (Auto) Baso # (Auto) WBC Differential Diff Scan Differential Comment Platelet Estimate Platelet Morphology Target Cells Sodium Potassium Chloride Carbon Dioxide Anion Gap BUN Creatinine Estimated GFR POC Glucose 137 H 142 H 118 H Random Glucose Calcium Phosphorus Magnesium Total Bilirubin AST ALT Alkaline Phosphatase Total Protein Albumin 01/19/18 01/19/18 12:26 12:36 WBC RBC Hgb Hct MCV MCH MCHC RDW Plt Count MPV Prelim Diff (Auto) Neut % (Auto) Lymph % (Auto) [place] % (Auto) Eos % (Auto) Baso % (Auto) Neut # (Auto) Lymph # (Auto) [place] # (Auto) Eos # (Auto) Baso # (Auto) WBC Differential Diff Scan Differential Comment Platelet Estimate Platelet Morphology Target Cells Sodium 133 L Potassium 5.3 H D Chloride 94 L Carbon Dioxide 26.8 Anion Gap 12 BUN 128 H Creatinine 3.38 H Estimated GFR 23 L POC Glucose 162 H Random Glucose 146 H Calcium 9.5 Phosphorus 3.8 Magnesium Total Bilirubin AST ALT Alkaline Phosphatase Total Protein Albumin 3.1 L Result Diagrams: 01/18/18 08:52 01/19/18 12:36 Imaging: ITS Impressions Chest X-Ray 01/15/18 00:00 CONCLUSION: Small left pleural effusion Videofluoroscopic Swallow 01/18/18 00:00 CONCLUSION: Moderate silent aspiration. Please see consultation for speech pathology for further recommendations. 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 Legal:Not able to make decisions/incapacitated 2/2 to critical illness and change in mental status, not clear he will regain ability to. Per [place] statutes his would be appropriate legal decision maker. Ethical issues impacting care: Important Contacts: Lidia Alexander [phone]; mikala [phone] Dtr Lissette Bowman [phone] Prognosis: This patient was admitted for acute shortness of breath. He has known history of COPD. He also had been being worked up outpatient for possible myeloma process. He has significant right sided heart failure this admission was severely reduced cardiac output, and severe pulmonary hypertension. This combined with advanced COPD and acute renal failure makes overall prognosis poor. Pt declining, weakening. High risk for ongoing complications, decline and . Hospice appropriate. Code Status: Full Code Plan: * Legal decision maker: Not clearly capacitated, change in mental status and nonverbal today, Per [place] statutes his would be appropriate legal decision maker. Recommend shared decision making at this time. * Goals:previously aggressive but today expressing more comfort oriented goals. * CODE STATUS: FULL CODE * SYMPTOMS: --Dyspnea- acute dyspnea on day of presentation. was intubated, extubated , s/p heart catheterization, severely reduced cardiac output, pulmonary hypertension. Noted to have advanced COPD O2 dependent 3 L. Currently on NC 5L with sat 94%. Nonverbal today, indicates he is not feeling SOB. Currently on scheduled inhaled steroids, symbicort, duonebs. Bipap at night. --Pain-patient with chronic back pain, chronic muscle skeletal pain, chronic pain syndrome. had been on Lyrica. Per heme/onc no definite evidence to suggest multiple myeloma. Pt now with decubitus and skin breakdown on scrotum. Denies pain to me but last night rated pain 8. Wound care following. Has PRN apap, Percocet q6h PRN, last had yesterday 2100, lyrica. Recommend following woundcare recs. Consider condom cath. Consider switching from percocet to long acting morphine 15 mg BID. -- weakness/debility - now with worsening dysphagia, silent aspiration per MBS. downgraded to pureed diet and honey thick liquids. SOFTWARE DESIGN ANALYST following. pt nonverbal on my eval but told another provider he wanted to eat cereal. Less motivated during PT. PT sessions limited d/t sacral ulcer. * Hospice consult pending * Palliative care will continue to follow during hospital course as condition evolves, to assist patient/decision-maker with understanding of medical conditions, weighing benefits/burdens of treatment options, for clarification of goals of treatment. Additionally will assist with any symptoms of palliative concern Attestation Attestation: To help prompt me to consider important information that might be impacting today's encounter and assessment, information from prior notes written by myself or my colleagues may have been "brought forward" into today's note. My signature on this note, however, is an attestation that I personally performed the exam, history, and/or decision-making noted today, and, unless otherwise indicated, the interactions with patient, family, and staff as well as the review of records all occurred today. I also attest that the listed assessment and stated plan reflect my best clinical judgment today based on the combination of historical information, prior notes, and today's exam/ interactions. When time spent is documented, it refers only to time spent today by the signer, or if indicated, combined time spent today by collaborating physician/nurse practitioner.
--- NOTE | 2018-01-19 16:53 | P.PN ---
Subjective Interval history: alert weak poor cough no distreaa Physical Exam Vital signs: Vital Signs 01/18/18 17:00 01/18/18 20:00 01/18/18 21:16 Temperature Pulse Rate 108 H Respiratory Rate 20 Blood Pressure 108/64 Pulse Oximetry 92 L 92 L 01/18/18 21:56 01/19/18 01:06 01/19/18 01:30 Temperature 100.6 F H 98.5 F Pulse Rate 111 H 99 H Respiratory Rate 19 17 Blood Pressure 162/68 H 90/56 L Pulse Oximetry 92 L 95 89 L 01/19/18 03:00 01/19/18 04:00 01/19/18 08:00 Temperature 97.8 F 98.3 F Pulse Rate 97 H 108 H Respiratory Rate 17 22 Blood Pressure 93/60 L 115/67 Pulse Oximetry 97 100 94 L 01/19/18 08:58 01/19/18 12:00 Temperature 98.2 F Pulse Rate 103 H 107 H Respiratory Rate 14 22 Blood Pressure 101/55 L Pulse Oximetry 94 L 100 Intake & Output 01/18/18 01/19/18 01/19/18 18:59 06:59 18:59 Intake Total 180 / 180 1000 / 1000 Output Total 250 / 250 Balance -70 / -70 1000 / 1000 Weight 107.4 kg Intake: IV 1000 / 1000 D5W Inj 1,000 ML @ 20 mls/hr IV 1000 / 1000 .CONT .Q24H [facility] Rx#:[id number] Oral 180 / 180 Output: Urine 250 / 250 Other: # Voids 3 # Bowel Movements 0 Narrative: GENERAL: NAD SKIN: Warm and dry. HEAD: Normocephalic. EYES: No scleral icterus. No injection or drainage. NECK: Supple, trachea midline. No JVD or lymphadenopathy. CARDIOVASCULAR: Regular rate and rhythm without murmurs, gallops, or rubs. RESPIRATORY: Breath sounds decrease bilaterally. No accessory muscle use. GASTROINTESTINAL: Abdomen soft, non-tender, nondistended. MUSCULOSKELETAL: No cyanosis, or edema. BACK: Nontender without obvious deformity. No CVA tenderness. - Urinary Catheter Management Condom Cath placed during this visit: no Urethral indwelling: No Reason for continuing: Hourly intake/output Results - Labs CBC & Chem 7: 01/18/18 08:52 01/19/18 12:36 Laboratory Results - last 24 hr 01/18/18 01/18/18 01/19/18 16:55 19:30 07:56 Sodium Potassium Chloride Carbon Dioxide Anion Gap BUN Creatinine Estimated GFR POC Glucose 137 H 142 H 118 H Random Glucose Calcium Phosphorus Albumin 01/19/18 01/19/18 12:26 12:36 Sodium 133 L Potassium 5.3 H D Chloride 94 L Carbon Dioxide 26.8 Anion Gap 12 BUN 128 H Creatinine 3.38 H Estimated GFR 23 L POC Glucose 162 H Random Glucose 146 H Calcium 9.5 Phosphorus 3.8 Albumin 3.1 L Assessment and Plan - Plan impression l respiratory failure copd chf renal failure KANWAL obesity decubitus ulcer PLAN O2 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 outlook poor
[2018-01-19] MEDS: oxyCODONE/Acetaminophen 10/325 Tablet PO PRN (23:25)
[2018-01-20] MEDS: dilTIAZem 30 MG Tablet PO SCH (05:49)
[2018-01-20] MEDS: Dextrose 5% in Water Inj 1,000 ML IV.CONT SCH (05:49)
[2018-01-20] MEDS: Oral Hygiene Kit OROPHARYNG SCH ×2 (05:52→05:53)
[2018-01-20] MEDS: Artificial Tears Opth Oint 3.5 GM Tube EACH EYE SCH ×2 (05:52→21:42)
[2018-01-20] MEDS: Insulin Detemir Inj 1,000 UNIT/10 ML Vial SQ SCH ×2 (08:41→21:42)
[2018-01-20] MEDS: Famotidine 20 MG Tablet PO SCH ×2 (08:43→21:38)
[2018-01-20] MEDS: Calcium Acetate 667 MG Capsule PO SCH ×3 (08:43→18:03)
[2018-01-20] MEDS: predniSONE 5 MG Tablet PO SCH (08:44)
[2018-01-20] MEDS: Senna/Docusate Sodium 8.6/50 MG Tablet PO SCH ×2 (08:44→21:39)
[2018-01-20] MEDS: Insulin NovoLOG Aspart Correctional Sugar Inj SQ SCH ×4 (08:44→21:42)
[2018-01-20] MEDS: Budesonide-Formoterol 160/4.5 MCG 6 GM Inhaler INH SCH ×2 (11:23→21:39)
[2018-01-20] MEDS: oxyCODONE/Acetaminophen 10/325 Tablet PO PRN ×2 (12:11→21:40)
--- NOTE | 2018-01-20 13:30 | P.PN ---
Subjective Interval history: Follow-up acute hypoxic respiratory failure/acute renal failure on hemodialysis/ right-sided heart failure January 20, 2018-patient seen and examined, case discussed with patient family is at bedside regarding his prognosis. His left in tears, however able to talk to patient's brother and niece. Currently satting at 90% on 6 L nasal cannula. Physical Exam Vital signs: Vital Signs 01/19/18 16:00 01/19/18 20:00 01/19/18 20:29 Temperature 99.6 F 100.7 F H Pulse Rate 115 H 106 H 104 H Respiratory Rate 22 17 20 Blood Pressure 120/74 109/57 L Pulse Oximetry 98 94 L 94 L 01/20/18 00:00 01/20/18 04:00 01/20/18 08:00 Temperature 98.6 F 97.3 F L 97.2 F L Pulse Rate 117 H 95 H 112 H Respiratory Rate 18 17 20 Blood Pressure 111/68 98/66 L 114/57 L Pulse Oximetry 92 L 94 L 90 L 01/20/18 12:29 Temperature Pulse Rate Respiratory Rate Blood Pressure Pulse Oximetry 90 L Intake & Output 01/19/18 01/20/18 01/20/18 18:59 06:59 18:59 Intake Total 280 / 280 800 / 800 Output Total 600 / 600 Balance -320 / -320 800 / 800 Weight 108.3 kg Intake: IV 800 / 800 D5W Inj 1,000 ML @ 20 mls/hr IV 800 / 800 .CONT .Q24H [facility] Rx#:[id number] Oral 280 / 280 0 / 0 Output: Urine 600 / 600 Other: # Voids 0 Narrative: GENERAL: NAD SKIN: Warm and dry. HEAD: Normocephalic. EYES: No scleral icterus. No injection or drainage. NECK: Supple, trachea midline. No JVD or lymphadenopathy. CARDIOVASCULAR: Regular rate and rhythm without murmurs, gallops, or rubs. RESPIRATORY: Breath sounds decrease bilaterally. No accessory muscle use. GASTROINTESTINAL: Abdomen soft, non-tender, nondistended. MUSCULOSKELETAL: No cyanosis, or edema. BACK: Nontender without obvious deformity. No CVA tenderness. - Urinary Catheter Management Condom Cath placed during this visit: no Urethral indwelling: No Reason for continuing: Hourly intake/output Results - Labs CBC & Chem 7: 01/18/18 08:52 01/19/18 12:36 Laboratory Results - last 24 hr 01/19/18 01/19/18 01/19/18 12:36 17:16 19:32 Sodium 133 L Potassium 5.3 H D Chloride 94 L Carbon Dioxide 26.8 Anion Gap 12 BUN 128 H Creatinine 3.38 H Estimated GFR 23 L POC Glucose 177 H 144 H Random Glucose 146 H Calcium 9.5 Phosphorus 3.8 Albumin 3.1 L 01/20/18 01/20/18 01/20/18 08:05 09:30 12:40 Sodium Potassium Chloride Carbon Dioxide Anion Gap BUN Creatinine Estimated GFR POC Glucose 61 L 78 79 Random Glucose Calcium Phosphorus Albumin Assessment and Plan - Plan 62-year-old man with Acute hypoxic respiratory failure COPD exacerbation Pulmonary hypertension Status post extubation on 12/31/2017 Continue oxygen support as needed Continue steroid taper, prednisone 5 mg daily Continue scheduled breathing treatments, continue Symbicort. Continue BiPAP at bedtime as needed Appreciate input from pulmonary medicine Continue BiPAP at bedtime Obstructive sleep apnea Obesity hypoventilation syndrome Continue BiPAP at night Hypertension Continue baseline treatment Hyperlipidemia Continue present treatment Follow as an outpatient Acute renal failure ATN Hemodialysis per nephrology Thursday, however no HD since January 12, 2018 Patient has consistently refused permacath placement, interventional radiology sign off Possible small CVA Daily aspirin Chronic HCV Anxiety disorder on chronic benzos Depression Chronic pain syndrome and chronic opiate continue Percocet Diabetes mellitus type 2 High insulin sliding scale with long-acting insulin Questionable seizure-like activity EEG was ordered and performed January 15, 2018 and no seizure activity reported History of HIT Follow platelets Sacral decubitus wound Appreciate input from wound care nurse History of MGUS DVT prophylaxis Chest wall mass Biopsy once stable Dysphagia Swallow eval performed January 18, 2018 Hospice consultation pending Appreciate input from palliative care medicine
--- NOTE | 2018-01-20 15:16 | P.PN ---
Subjective Interval history: LETHARGIC AROUSIBLE NO DISTRESS Physical Exam Vital signs: Vital Signs 01/19/18 16:00 01/19/18 20:00 01/19/18 20:29 Temperature 99.6 F 100.7 F H Pulse Rate 115 H 106 H 104 H Respiratory Rate 22 17 20 Blood Pressure 120/74 109/57 L Pulse Oximetry 98 94 L 94 L 01/20/18 00:00 01/20/18 04:00 01/20/18 08:00 Temperature 98.6 F 97.3 F L 97.2 F L Pulse Rate 117 H 95 H 112 H Respiratory Rate 18 17 20 Blood Pressure 111/68 98/66 L 114/57 L Pulse Oximetry 92 L 94 L 90 L 01/20/18 08:20 01/20/18 12:00 01/20/18 12:29 Temperature 99.6 F Pulse Rate 80 99 H Respiratory Rate 24 22 Blood Pressure 96/58 L Pulse Oximetry 100 91 L 90 L Intake & Output 01/19/18 01/20/18 01/20/18 18:59 06:59 18:59 Intake Total 280 / 280 800 / 800 Output Total 600 / 600 Balance -320 / -320 800 / 800 Weight 108.3 kg Intake: IV 800 / 800 D5W Inj 1,000 ML @ 20 mls/hr IV 800 / 800 .CONT .Q24H [facility] Rx#:[id number] Oral 280 / 280 0 / 0 Output: Urine 600 / 600 Other: # Voids 0 Narrative: GENERAL: NAD SKIN: Warm and dry. HEAD: Normocephalic. EYES: No scleral icterus. No injection or drainage. NECK: Supple, trachea midline. No JVD or lymphadenopathy. CARDIOVASCULAR: Regular rate and rhythm without murmurs, gallops, or rubs. RESPIRATORY: Breath sounds decrease bilaterally. No accessory muscle use. GASTROINTESTINAL: Abdomen soft, non-tender, nondistended. MUSCULOSKELETAL: No cyanosis, or edema. BACK: Nontender without obvious deformity. No CVA tenderness. - Urinary Catheter Management Condom Cath placed during this visit: no Urethral indwelling: No Reason for continuing: Hourly intake/output Results - Labs CBC & Chem 7: 01/18/18 08:52 01/19/18 12:36 Laboratory Results - last 24 hr 01/19/18 01/19/18 01/20/18 17:16 19:32 08:05 POC Glucose 177 H 144 H 61 L 01/20/18 01/20/18 09:30 12:40 POC Glucose 78 79 Assessment and Plan - Plan impression l respiratory failure copd chf renal failure KANWAL obesity decubitus ulcer PLAN O2 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 outlook poor
--- NOTE | 2018-01-20 15:50 | P.PNNP ---
Subjective Interval history: Resting on left side. Mild shortness of breath. Complains of discomfort on back and wound area. <Amber Thomas - Last Filed: 01/20/18 15:38> Physical Exam Vital signs: Vital Signs 01/19/18 16:00 01/19/18 20:00 01/19/18 20:29 Temperature 99.6 F 100.7 F H Pulse Rate 115 H 106 H 104 H Respiratory Rate 22 17 20 Blood Pressure 120/74 109/57 L Pulse Oximetry 98 94 L 94 L 01/20/18 00:00 01/20/18 04:00 01/20/18 08:00 Temperature 98.6 F 97.3 F L 97.2 F L Pulse Rate 117 H 95 H 112 H Respiratory Rate 18 17 20 Blood Pressure 111/68 98/66 L 114/57 L Pulse Oximetry 92 L 94 L 90 L 01/20/18 08:20 01/20/18 12:00 01/20/18 12:29 Temperature 99.6 F Pulse Rate 80 99 H Respiratory Rate 24 22 Blood Pressure 96/58 L Pulse Oximetry 100 91 L 90 L Intake & Output 01/19/18 01/20/18 01/20/18 18:59 06:59 18:59 Intake Total 280 / 280 800 / 800 Output Total 600 / 600 Balance -320 / -320 800 / 800 Weight 108.3 kg Intake: IV 800 / 800 D5W Inj 1,000 ML @ 20 mls/hr IV 800 / 800 .CONT .Q24H [facility] Rx#:[id number] Oral 280 / 280 0 / 0 Output: Urine 600 / 600 Other: # Voids 0 - Constitutional no acute distress - Routine HEENT Exam Head: Present: normocephalic - Routine Neck Exam Absent: JVD - Routine Respiratory Exam Present: decreased breath sounds, rhonchi. Absent: wheezes - Routine Cardiovascular Exam Present: RRR - Routine Abdominal Exam Present: soft, normoactive bowel sounds - Routine Extremities Exam Present: edema - Routine Skin Exam Present: dry, warm - Routine Neurological Exam Present: alert - Urinary Catheter Management Condom Cath placed during this visit: no Urethral indwelling: No Reason for continuing: Hourly intake/output <Amber Thomas - Last Filed: 01/20/18 15:38> Vital signs: Vital Signs 01/19/18 20:00 01/19/18 20:29 01/20/18 00:00 Temperature 100.7 F H 98.6 F Pulse Rate 106 H 104 H 117 H Respiratory Rate 17 20 18 Blood Pressure 109/57 L 111/68 Pulse Oximetry 94 L 94 L 92 L 01/20/18 04:00 01/20/18 08:00 01/20/18 08:20 Temperature 97.3 F L 97.2 F L Pulse Rate 95 H 112 H 80 Respiratory Rate 17 20 24 Blood Pressure 98/66 L 114/57 L Pulse Oximetry 94 L 90 L 100 01/20/18 12:00 01/20/18 12:29 01/20/18 18:00 Temperature 99.6 F 98.9 F Pulse Rate 99 H 96 H Respiratory Rate 22 20 Blood Pressure 96/58 L 99/60 L Pulse Oximetry 91 L 90 L 92 L Intake & Output 01/19/18 01/20/18 01/20/18 18:59 06:59 18:59 Intake Total 280 / 280 800 / 800 Output Total 600 / 600 Balance -320 / -320 800 / 800 Weight 108.3 kg Intake: IV 800 / 800 D5W Inj 1,000 ML @ 20 mls/hr IV 800 / 800 .CONT .Q24H [facility] Rx#:[id number] Oral 280 / 280 0 / 0 Output: Urine 600 / 600 Other: # Voids 0 - Urinary Catheter Management Condom Cath placed during this visit: no <Paris Cueto - Last Filed: 01/20/18 19:00> Assessment and Plan - Assessment (1) Acute kidney injury Code(s): N17.9 - Acute kidney failure, unspecified Status: Acute Plan: The patient has chronic kidney disease and developed acute kidney injury. Acute renal failure with ATN because of the hypotension or possibility of contrast nephropathy with the CT angiogram done. Renal ultrasound with no hydronephrosis Heart cath pulmonary hypertension Decubitus ulcer Avoid nephrotoxic agents Last HD done Thursday Refused vascath, then had seizure-like activity and permcath not done. Creatinine at 3.29 -> 2.9 ->3.0 ->3.38 Potassium level at 5.3 Renal diet, potassium reduced UOP at 600/24 hours, improving Last HD was 01/12 - may be seeing slow recovery. Continue to hold HD for now. Will monitor labs, urinary output, and watch for renal recovery. <Amber Thomas - Last Filed: 01/20/18 15:38> - Assessment (1) Acute kidney injury Code(s): N17.9 - Acute kidney failure, unspecified Status: Acute - Attending Attestation Patient seen and examined, agree with above. Non oliguric. No new BMP, Check BMP in AM. <Paris Cueto - Last Filed: 01/20/18 19:00>
--- NOTE | 2018-01-20 16:34 | P.DIET ---
Nutritional Evaluation Type of nutrition evaluation: follow-up Nutrition consult regarding: Diet Evaluation Subjective Barriers to Nutrition: Refuses to eat at times Oral Diet Tolerance Assessment Indicates: Small amounts of food eaten Subjective Comments: Pt continues w/ poor PO intake and oftentimes refusal of meals. When he eats, it 's a very small amount of food. Objective - Diagnosis Respiratory Distress, CHF, Hypoxia - Objective % IBW: 144 (XKT=881#) Body Weight Used for Calculations: Upper end of IBW (83kg) Energy Needs - Lower Range (kCal/kg): 25 Energy Needs - Upper Range (kCal/kg): 30 Lower Limit kCal/kg (kCals): 2,075 Upper Limit kCal/kg (kCals): 2,490 Lower Limit Protein Factor (Grams per Kg): 1.2 Upper Limit Protein Factor (Grams per Kg): 1.5 Lower Protein Needs (Protein): 100 Upper Protein Needs (Protein): 125 Dietitian Reviewed in Medical Record: Current diet, Curent medications, Intake & Output, Labs, Wound/DTI Diet Order: Pureed, honey thick liquids, 2g Na, 40mEq K Oral Diet Intake Amount: Poor <50% Wound Care Note: 01/18 WOCN: sacrum-> unstageable Objective Comments: Meds: Phoslo, Santyl 01/19 Labs: A1C 9.7, Na 133, K 5.3, BUN 128, civil celebrant 3.38, eGFR 23, Gluc 146 Last documented BM 01/11 HD on hold since 01/12 Feeding - Current PO Supplement Current Supplement: Nepro Current Frequency of Supplement: Twice daily Current kCals Provided by Supplement: 425 Current Protein Provided by Supplement: 19 Assessment Assessment: Pt remains at high nutritional risk 2/2 poor PO intake, medical diagnosis, and unstageable sacral ulcer. Pt is on a pureed diet w/ honey thick liquids and a 2g Na and 40mEq K restriction. HD has been on hold since 01/12, civil celebrant 3.38 & BUN 128. Pt has been receiving Nepro BID for added nutrition while on HD. Hospice consult placed. I will change Nepro to Suplena TID for added nutrition. Pt is a candidate for Darryl BID for his unstageable pressure injury, but would be unable to open/mix/drink himself. Will continue to follow to determine goals/ plan of care. Pt is appropriate for enteral nutrition if goals remain aggressive. Dietitian following. Recommendations: 1. Continue diet per Nephrology. 2. Suplena TID for added nutrition. 3. Recommend enteral nutrition if goals remain aggressive. Dietitian to Monitor: Lab values, Renal labs, Supplement acceptance, Intake & Output, Diet tolerance, Weight change, PO Intake, Diet advancement, Wound/skin status, Medical course
[2018-01-20] MEDS: Chlorhexidine 0.12% Oral Kit 15 ML UDC SWISH-SPIT SCH (23:07)
--- NOTE | 2018-01-21 09:41 | P.PN ---
Subjective Interval history: LETHARGIC EASILY AROUSIBLE Physical Exam Vital signs: Vital Signs 01/20/18 12:00 01/20/18 12:29 01/20/18 18:00 Temperature 99.6 F 98.9 F Pulse Rate 99 H 96 H Respiratory Rate 22 20 Blood Pressure 96/58 L 99/60 L Pulse Oximetry 91 L 90 L 92 L 01/20/18 20:00 01/20/18 20:47 01/21/18 00:00 Temperature 99.3 F 98.5 F Pulse Rate 117 H 81 106 H Respiratory Rate 20 18 20 Blood Pressure 109/57 L 90/62 L Pulse Oximetry 97 94 L 91 L 01/21/18 00:55 01/21/18 04:00 01/21/18 04:27 Temperature 98.7 F Pulse Rate 106 H Respiratory Rate 20 Blood Pressure 102/58 L Pulse Oximetry 98 92 L 98 01/21/18 08:32 Temperature Pulse Rate 109 H Respiratory Rate 17 Blood Pressure Pulse Oximetry 94 L Intake & Output 01/20/18 01/21/18 01/21/18 18:59 06:59 18:59 Intake Total 0 / 0 Output Total 700 / 700 Balance -700 / -700 Weight 109.1 kg Intake: Oral 0 / 0 Output: Urine 700 / 700 Other: # Bowel Movements 0 Narrative: GENERAL: NAD SKIN: Warm and dry. HEAD: Normocephalic. EYES: No scleral icterus. No injection or drainage. NECK: Supple, trachea midline. No JVD or lymphadenopathy. CARDIOVASCULAR: Regular rate and rhythm without murmurs, gallops, or rubs. RESPIRATORY: Breath sounds decrease bilaterally. No accessory muscle use. GASTROINTESTINAL: Abdomen soft, non-tender, nondistended. MUSCULOSKELETAL: No cyanosis, or edema. BACK: Nontender without obvious deformity. No CVA tenderness. 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
--- NOTE | 2018-01-21 09:48 | P.PNNP ---
Subjective Interval history: Appears to be more confused. Having difficulty clearing cough. Labs are pending today. <Amber Thomas - Last Filed: 01/21/18 09:44> Physical Exam Vital signs: Vital Signs 01/20/18 12:00 01/20/18 12:29 01/20/18 18:00 Temperature 99.6 F 98.9 F Pulse Rate 99 H 96 H Respiratory Rate 22 20 Blood Pressure 96/58 L 99/60 L Pulse Oximetry 91 L 90 L 92 L 01/20/18 20:00 01/20/18 20:47 01/21/18 00:00 Temperature 99.3 F 98.5 F Pulse Rate 117 H 81 106 H Respiratory Rate 20 18 20 Blood Pressure 109/57 L 90/62 L Pulse Oximetry 97 94 L 91 L 01/21/18 00:55 01/21/18 04:00 01/21/18 04:27 Temperature 98.7 F Pulse Rate 106 H Respiratory Rate 20 Blood Pressure 102/58 L Pulse Oximetry 98 92 L 98 01/21/18 08:32 Temperature Pulse Rate 109 H Respiratory Rate 17 Blood Pressure Pulse Oximetry 94 L Intake & Output 01/20/18 01/21/18 01/21/18 18:59 06:59 18:59 Intake Total 0 / 0 Output Total 700 / 700 Balance -700 / -700 Weight 109.1 kg Intake: Oral 0 / 0 Output: Urine 700 / 700 Other: # Bowel Movements 0 - Constitutional mild distress - Routine HEENT Exam Head: Present: normocephalic - Routine Neck Exam Present: supple. Absent: JVD - Routine Respiratory Exam Present: decreased breath sounds, rhonchi. Absent: wheezes - Routine Cardiovascular Exam Present: RRR, tachycardia - Routine Abdominal Exam Present: soft, normoactive bowel sounds. Absent: tenderness - Routine Extremities Exam Present: edema - Routine Skin Exam Present: dry, warm, wounds - Urinary Catheter Management Condom Cath placed during this visit: no Urethral indwelling: No Reason for continuing: Hourly intake/output <Amber Thomas - Last Filed: 01/21/18 09:44> Vital signs: Vital Signs 01/20/18 20:00 01/20/18 20:47 01/21/18 00:00 Temperature 99.3 F 98.5 F Pulse Rate 117 H 81 106 H Respiratory Rate 20 18 20 Blood Pressure 109/57 L 90/62 L Pulse Oximetry 97 94 L 91 L 01/21/18 00:55 01/21/18 04:00 01/21/18 04:27 Temperature 98.7 F Pulse Rate 106 H Respiratory Rate 20 Blood Pressure 102/58 L Pulse Oximetry 98 92 L 98 01/21/18 08:00 01/21/18 08:32 01/21/18 12:00 Temperature 100.6 F H 99.5 F Pulse Rate 116 H 109 H 101 H Respiratory Rate 24 17 24 Blood Pressure 107/77 99/52 L Pulse Oximetry 91 L 94 L 91 L Intake & Output 01/20/18 01/21/18 01/21/18 18:59 06:59 18:59 Intake Total 0 / 0 900 / 900 Output Total 700 / 700 Balance -700 / -700 900 / 900 Weight 109.1 kg Intake: IV 900 / 900 D5W Inj 1,000 ML @ 20 mls/hr IV 800 / 800 .CONT .Q24H [facility] Rx#:[id number] Maxipime Inj 1,000 MG In NS Inj 100 / 100 100 ML @ 200 mls/hr IV.SIG Q12H [facility] Rx#:[id number] Oral 0 / 0 Output: Urine 700 / 700 Other: # Bowel Movements 0 - Urinary Catheter Management Condom Cath placed during this visit: no <Paris Cueto - Last Filed: 01/21/18 18:37> Assessment and Plan - Assessment (1) Acute kidney injury Code(s): N17.9 - Acute kidney failure, unspecified Status: Acute Plan: The patient has chronic kidney disease and developed acute kidney injury. Acute renal failure with ATN because of the hypotension or possibility of contrast nephropathy with the CT angiogram done. Renal ultrasound with no hydronephrosis Heart cath pulmonary hypertension Decubitus ulcer Avoid nephrotoxic agents Last HD done Thursday Refused vascath, then had seizure-like activity and permcath not done. Creatinine trend at 3.29 -> 2.9 ->3.0 ->3.38 , labs pending today Renal diet, potassium reduced UOP at 700/24 hours, improving Last HD was 01/12 - may be seeing slow recovery. Continue to hold HD for now. Will monitor labs, urinary output, and watch for renal recovery. Labs are pending for today <Amber Thomas Last Filed: 01/21/18 09:44> - Assessment (1) Acute kidney injury Code(s): N17.9 - Acute kidney failure, unspecified Status: Acute - Attending Attestation Patient seen and examined, agree with above. Creatinine is better. Increase WBC, Blood culture done, on Cefepime. Encourage oral intake. Start IVF. <Paris Cueto - Last Filed: 01/21/18 18:37>
[2018-01-21] MEDS: Insulin Detemir Inj 1,000 UNIT/10 ML Vial SQ SCH ×2 (11:00→23:34)
[2018-01-21] MEDS: Insulin NovoLOG Aspart Correctional Sugar Inj SQ SCH ×4 (11:00→21:17)
[2018-01-21] MEDS: Chlorhexidine 0.12% Oral Kit 15 ML UDC SWISH-SPIT SCH ×2 (11:00→21:17)
[2018-01-21] MEDS: Famotidine 20 MG Tablet PO SCH ×2 (11:01→21:14)
[2018-01-21] MEDS: Senna/Docusate Sodium 8.6/50 MG Tablet PO SCH ×2 (11:01→21:16)
[2018-01-21] MEDS: Artificial Tears Opth Oint 3.5 GM Tube EACH EYE SCH (11:02)
[2018-01-21] MEDS: Collagenase Oint 30 GM Tube TOPICAL SCH ×2 (11:02→17:20)
--- NOTE | 2018-01-21 12:07 | XR ---
EXAM DATE: 01/21/2018 11:23 AM EDT AGE/SEX: 62 years / Male INDICATIONS: Fever. CLINICAL DATA: This is the patient's initial encounter. Patient reports that signs and symptoms have been present for 1 day and indicates a pain score of 0/10. MEDICAL/SURGICAL HISTORY: . Chronic obstructive pulmonary disease. Diabetes mellitus type II. G astroesophageal reflux disease. Myocardial infarction. . Tonsillectomy. Right ankle and bilateral c ataracts. COMPARISON: [facility] [place], CHEST 1V SINGLE AP, 01/15/2018. . FINDINGS: There appears to be a mild infiltrate in the left lower lung. This may represent some atelectasis. Th ere is some mild blunting of the left costophrenic angle suggestive of a small effusion. The rest of the lung kay are grossly clear. The heart size is enlarged but stable. There is some prominence of the pulmonary vasculature suggestive of some pulmonary venous congestion. The bony structures are st able. No significant changes are seen compared to the prior study. CONCLUSION: Mild left lower lung infiltrate with a small left-sided effusion. Pulmonary venous congestion. Stable mild cardiomegaly. Electronically signed by: Sivakumar Trejo MD 01/21/2018 12:06 PM EDT
[2018-01-21 12:22] LABS: Albumin 2.7 g/dL (3.4-5.0); Calcium 10.2 mg/dL (8.5-10.1); Carbon Dioxide 22.9 meq/L (21.0-32.0); Phosphorus 3.2 mg/dL (2.5-4.9); Potassium 4.2 meq/L (3.5-5.1)
--- NOTE | 2018-01-21 12:48 | P.PN ---
Subjective Interval history: Follow-up acute hypoxic respiratory failure/acute renal failure on hemodialysis/ right-sided heart failure January 20, 2018-patient seen and examined, case discussed with patient family is at bedside regarding his prognosis. His left in tears, however able to talk to patient's brother and niece. Currently satting at 90% on 6 L nasal cannula. January 21, 2018-patient seen and examined, with significant shortness of breath and worsening cough. Physical Exam Vital signs: Vital Signs 01/20/18 18:00 01/20/18 20:00 01/20/18 20:47 Temperature 98.9 F 99.3 F Pulse Rate 96 H 117 H 81 Respiratory Rate 20 20 18 Blood Pressure 99/60 L 109/57 L Pulse Oximetry 92 L 97 94 L 01/21/18 00:00 01/21/18 00:55 01/21/18 04:00 Temperature 98.5 F 98.7 F Pulse Rate 106 H 106 H Respiratory Rate 20 20 Blood Pressure 90/62 L 102/58 L Pulse Oximetry 91 L 98 92 L 01/21/18 04:27 01/21/18 08:00 01/21/18 08:32 Temperature Pulse Rate 109 H Respiratory Rate 17 Blood Pressure Pulse Oximetry 98 94 L 94 L Intake & Output 01/20/18 01/21/18 01/21/18 18:59 06:59 18:59 Intake Total 0 / 0 Output Total 700 / 700 Balance -700 / -700 Weight 109.1 kg Intake: Oral 0 / 0 Output: Urine 700 / 700 Other: # Bowel Movements 0 Narrative: GENERAL: NAD SKIN: Warm and dry. HEAD: Normocephalic. EYES: No scleral icterus. No injection or drainage. NECK: Supple, trachea midline. No JVD or lymphadenopathy. CARDIOVASCULAR: Regular rate and rhythm without murmurs, gallops, or rubs. RESPIRATORY: Breath sounds decrease bilaterally. No accessory muscle use. GASTROINTESTINAL: Abdomen soft, non-tender, nondistended. MUSCULOSKELETAL: No cyanosis, or edema. BACK: Nontender without obvious deformity. No CVA tenderness. - Urinary Catheter Management Condom Cath placed during this visit: no Urethral indwelling: No Reason for continuing: Hourly intake/output Results - Labs CBC & Chem 7: 01/18/18 08:52 01/21/18 11:10 Laboratory Results - last 24 hr 01/20/18 01/20/18 01/21/18 18:06 21:36 08:33 Sodium Potassium Chloride Carbon Dioxide Anion Gap BUN Creatinine Estimated GFR POC Glucose 106 145 H 97 Random Glucose Calcium Phosphorus Albumin 01/21/18 11:10 Sodium 135 L Potassium 4.2 D Chloride 98 Carbon Dioxide 22.9 Anion Gap 14 BUN 134 H Creatinine 2.92 H Estimated GFR 27 L POC Glucose Random Glucose 122 H Calcium 10.2 H Phosphorus 3.2 Albumin 2.7 L - Imaging Impressions Chest X-Ray 01/21/18 00:00 CONCLUSION: Mild left lower lung infiltrate with a small left-sided effusion. Pulmonary venous congestion. Stable mild cardiomegaly. Assessment and Plan - Plan 62-year-old man with Acute hypoxic respiratory failure COPD exacerbation Pulmonary hypertension Status post extubation on 12/31/2017 Continue oxygen support as needed Continue steroid taper, prednisone 5 mg daily Continue scheduled breathing treatments, continue Symbicort. Continue BiPAP at bedtime as needed Appreciate input from pulmonary medicine Continue BiPAP at bedtime Obstructive sleep apnea Obesity hypoventilation syndrome Continue BiPAP at night Hypertension Continue baseline treatment Hyperlipidemia Continue present treatment Follow as an outpatient Acute renal failure ATN Hemodialysis per nephrology Thursday, however no HD since January 12, 2018 Patient has consistently refused permacath placement, interventional radiology sign off Possible small CVA Daily aspirin Chronic HCV Anxiety disorder on chronic benzos Depression Chronic pain syndrome and chronic opiate continue Percocet Diabetes mellitus type 2 High insulin sliding scale with long-acting insulin Questionable seizure-like activity EEG was ordered and performed January 15, 2018 and no seizure activity reported History of HIT Follow platelets Sacral decubitus wound Appreciate input from wound care nurse History of MGUS DVT prophylaxis Chest wall mass Biopsy once stable Dysphagia Swallow eval performed January 18, 2018 Cough 01/21/18 Chest x-ray noted and reviewed by me with finding of Mild left lower lung infiltrate with a small left-sided effusion. Pulmonary venous congestion. Will give Lasix IV 20 mg 1 now Start cefepime IV every 12 hours for possible HCAP Check sputum culture Hospice consultation pending Appreciate input from palliative care medicine
[2018-01-21] MEDS: Calcium Acetate 667 MG Capsule PO SCH ×2 (14:56→17:21)
[2018-01-21] MEDS: predniSONE 5 MG Tablet PO SCH (14:56)
[2018-01-21] MEDS: Dextrose 5% in Water Inj 1,000 ML IV.CONT SCH (15:06)
[2018-01-21 15:36] LABS: Baso # (Auto) 0.1 th/mm3 (0.0-0.2); Baso % (Auto) 0.3 % (0.0-2.0); Eos % (Auto) 0.1 % (0.0-4.0); Hematocrit 36.4 % (39.0-51.0); Hemoglobin 11.6 gm/dL (13.0-17.0); Lymph # (Auto) 0.5 th/mm3 (1.0-4.8); Lymph % (Auto) 1.8 % (9.0-44.0); Mean Corpuscular HGB Conc 31.9 % (32.0-36.0); Mean Corpuscular Hemoglobin 21.7 pg (27.0-34.0); Mean Corpuscular Volume 67.9 fL (80.0-100.0); Mean Platelet Volume 10.2 fL (7.0-11.0); Mono # (Auto) 1.5 th/mm3 (0.0-0.9); Mono % (Auto) 5.3 % (0.0-8.0); Neut # (Auto) 26.7 th/mm3 (1.8-7.7); Neut % (Auto) 92.5 % (16.0-70.0); Platelet Count 278 th/mm3 (150-450); Red Blood Count 5.36 mil/mm3 (4.50-5.90); Red Cell Distribution Width 20.6 % (11.6-17.2); White Blood Count 28.9 th/mm3 (4.0-11.0)
[2018-01-21 15:37] LABS: Calcium 9.5 mg/dL (8.5-10.1); Carbon Dioxide 26.9 meq/L (21.0-32.0); Potassium 4.2 meq/L (3.5-5.1)
[2018-01-21 16:54] LABS: Platelet Estimate Normal (Normal); Target Cells 1+
[2018-01-21] MEDS: Oral Hygiene Kit OROPHARYNG SCH (17:20)
[2018-01-21] MEDS: dilTIAZem 30 MG Tablet PO SCH ×2 (17:20→17:21)
[2018-01-21] MEDS: Budesonide-Formoterol 160/4.5 MCG 6 GM Inhaler INH SCH ×2 (17:20→21:18)
[2018-01-21] MEDS ORDERED: Sod Chloride 0.9% Inj 1,000 ML IV.CONT SCH (18:37)
[2018-01-21] MEDS: oxyCODONE/Acetaminophen 10/325 Tablet PO PRN (21:14)
[2018-01-22] MEDS: Dextrose 5% in Water Inj 1,000 ML IV.CONT SCH (02:12)
[2018-01-22] MEDS: Senna/Docusate Sodium 8.6/50 MG Tablet PO SCH ×3 (02:14→23:41)
[2018-01-22] MEDS: dilTIAZem 30 MG Tablet PO SCH ×4 (02:16→19:33)
[2018-01-22] MEDS: Oral Hygiene Kit OROPHARYNG SCH ×4 (02:16→18:17)
[2018-01-22] MEDS: Famotidine 20 MG Tablet PO SCH ×3 (02:18→23:41)
[2018-01-22] MEDS: Artificial Tears Opth Oint 3.5 GM Tube EACH EYE SCH ×3 (02:18→23:43)
[2018-01-22] MEDS: Chlorhexidine 0.12% Oral Kit 15 ML UDC SWISH-SPIT SCH ×3 (02:19→23:44)
[2018-01-22] MEDS: Chlorhexidine Gluconate 2% 1 Pack (2 Cloths) TOPICAL SCH (05:28)
[2018-01-22] MEDS: Insulin NovoLOG Aspart Correctional Sugar Inj SQ SCH ×4 (09:04→23:38)
[2018-01-22] MEDS: Insulin Detemir Inj 1,000 UNIT/10 ML Vial SQ SCH ×2 (09:04→23:36)
[2018-01-22] MEDS: Collagenase Oint 30 GM Tube TOPICAL SCH ×2 (09:05→12:43)
[2018-01-22] MEDS: predniSONE 5 MG Tablet PO SCH (09:06)
[2018-01-22] MEDS: Budesonide-Formoterol 160/4.5 MCG 6 GM Inhaler INH SCH ×2 (09:07→23:39)
--- NOTE | 2018-01-22 11:11 | P.PNPAL ---
Reason for Visit Reason for visit: a. To assist with evaluation and management of symptoms including: dyspnea, pain, debility b. To assist medical decision maker(s) with: better understanding of current medical conditions; weighing benefits/burdens of medical treatment options; making medical treatment decisions. Subjective Subjective/Interval History: Follow up today for dyspnea, pain, weakness. Pt nonverbal today on my evaluation. He is resting in bed, appears uncomfortable and distressed. Visiply dyspneic. Tachypneic. Audible upper respiratory congestion. He is on NC 6L. Sat 94%. CXR 01/21 showed pulmonary venous congestion, mild left lower lung infiltrate with left pleural effusion. He is declining PT, POP SINGER. During attempted therapy session per PT notes, refused to wear NC. Per POP SINGER he was unable to manage his secretions and was made NPO. He has rising WBC, worsening kidney function. He is unable to answer questions about symptoms. Unable to tell me if he has pain. Per nursing pain assessment his pain is 1, last night was 5. Family/Friend Interactions: Spoke with daughter Lissette and Lidia on phone: -reviewed family understanding of the current medical problems - pt made NPO by POP SINGER, unable to do PT -reviewed family understanding of prognosis -Likely scenarios comparing ongoing aggressive care with a transition to `` comfort-measures only or hospice - CODE STATUS-review benefits/burdens and limitations of CPR, intubation, and mechanical ventilation - Proxy opted for alternative code, no reintubation. she is not ready to address CPR, ACLS drugs, shocks -Questions answered to the best of my ability - Palliative care contact information provided Family opting for alternative code with no intubation and emphasized that they want to do whatever is necessary to bring him home. They requested a 1600 meeting today with hospice. Objective Vital Signs: Vital Signs 01/21/18 12:00 01/21/18 16:00 01/21/18 19:45 Temperature 99.5 F 100.8 F H Pulse Rate 101 H 113 H 110 H Respiratory Rate 24 20 22 Blood Pressure 99/52 L 95/70 L Pulse Oximetry 91 L 94 L 92 L 01/21/18 20:00 01/21/18 21:46 01/22/18 00:00 Temperature 99.1 F 99.2 F Pulse Rate 104 H 118 H Respiratory Rate 20 24 Blood Pressure 106/67 111/49 L Pulse Oximetry 94 L 93 L 92 L 01/22/18 01:04 01/22/18 04:00 01/22/18 04:28 Temperature 99.1 F Pulse Rate 113 H Respiratory Rate 24 Blood Pressure 100/69 Pulse Oximetry 95 98 95 01/22/18 08:00 01/22/18 09:57 01/22/18 09:58 Temperature 99.2 F Pulse Rate 113 H 113 H Respiratory Rate 22 17 Blood Pressure 91/59 L Pulse Oximetry 96 94 L Intake & Output 01/21/18 01/22/18 01/22/18 18:59 06:59 18:59 Intake Total 930 / 930 1000 / 1000 Output Total 125 / 125 Balance 930 / 930 875 / 875 Weight 107.5 kg Intake: IV 900 / 900 1000 / 1000 D5W Inj 1,000 ML @ 20 mls/hr IV 800 / 800 1000 / 1000 .CONT .Q24H [facility] Rx#:[id number] Maxipime Inj 1,000 MG In NS Inj 100 / 100 100 ML @ 200 mls/hr IV.SIG Q12H [facility] Rx#:[id number] Oral 30 / 30 0 / 0 Output: Urine 125 / 125 Stool 0 / 0 Other: # Voids 4 2 Date of Last Bowel Movement 01/21/18 Physical Exam: CONSTITUTIONAL/GENERAL: This is an adequately nourished patient, appears mildly distressed EYES: PERRL. No scleral icterus. No injection or drainage. Fundi not examined. NECK: Trachea midline. Supple, nontender. CARDIOVASCULAR: tachycardic. No JVD. Peripheral pulses symmetric RESPIRATORY/CHEST: very shallow respirations. tachypneic. lung sounds diminished. No adventitious sounds auscultated but pt had wet sounding cough audible upper respiratory congestion. Using abd muscles to breathe GASTROINTESTINAL: Abdomen obese, no apparent tenderness. No palpable masses. Bowel faint MUSCULOSKELETAL: Extremities without clubbing, cyanosis, or edema. No mottling or clubbing. SKIN: warm and dry NEUROLOGICAL: nonverbal, mildly anxious. not cooperative PSYCHIATRIC: unable to assess; pt nonverbal Diagnostic Tests Laboratory: Laboratory Results - last 72 hr 01/19/18 01/19/18 01/19/18 12:26 12:36 17:16 WBC RBC Hgb Hct MCV MCH MCHC RDW Plt Count MPV Prelim Diff (Auto) Neut % (Auto) Lymph % (Auto) [place] % (Auto) Eos % (Auto) Baso % (Auto) Neut # (Auto) Lymph # (Auto) [place] # (Auto) Eos # (Auto) Baso # (Auto) WBC Differential Diff Scan Differential Comment Platelet Estimate Platelet Morphology Target Cells Sodium 133 L Potassium 5.3 H D Chloride 94 L Carbon Dioxide 26.8 Anion Gap 12 BUN 128 H Creatinine 3.38 H Estimated GFR 23 L POC Glucose 162 H 177 H Random Glucose 146 H Calcium 9.5 Phosphorus 3.8 Albumin 3.1 L 01/19/18 01/20/18 01/20/18 19:32 08:05 09:30 WBC RBC Hgb Hct MCV MCH MCHC RDW Plt Count MPV Prelim Diff (Auto) Neut % (Auto) Lymph % (Auto) [place] % (Auto) Eos % (Auto) Baso % (Auto) Neut # (Auto) Lymph # (Auto) [place] # (Auto) Eos # (Auto) Baso # (Auto) WBC Differential Diff Scan Differential Comment Platelet Estimate Platelet Morphology Target Cells Sodium Potassium Chloride Carbon Dioxide Anion Gap BUN Creatinine Estimated GFR POC Glucose 144 H 61 L 78 Random Glucose Calcium Phosphorus Albumin 01/20/18 01/20/18 01/20/18 12:40 18:06 21:36 WBC RBC Hgb Hct MCV MCH MCHC RDW Plt Count MPV Prelim Diff (Auto) Neut % (Auto) Lymph % (Auto) [place] % (Auto) Eos % (Auto) Baso % (Auto) Neut # (Auto) Lymph # (Auto) [place] # (Auto) Eos # (Auto) Baso # (Auto) WBC Differential Diff Scan Differential Comment Platelet Estimate Platelet Morphology Target Cells Sodium Potassium Chloride Carbon Dioxide Anion Gap BUN Creatinine Estimated GFR POC Glucose 79 106 145 H Random Glucose Calcium Phosphorus Albumin 01/21/18 01/21/18 01/21/18 08:33 11:10 13:19 WBC RBC Hgb Hct MCV MCH MCHC RDW Plt Count MPV Prelim Diff (Auto) Neut % (Auto) Lymph % (Auto) [place] % (Auto) Eos % (Auto) Baso % (Auto) Neut # (Auto) Lymph # (Auto) [place] # (Auto) Eos # (Auto) Baso # (Auto) WBC Differential Diff Scan Differential Comment Platelet Estimate Platelet Morphology Target Cells Sodium 135 L Potassium 4.2 D Chloride 98 Carbon Dioxide 22.9 Anion Gap 14 BUN 134 H Creatinine 2.92 H Estimated GFR 27 L POC Glucose 97 133 H Random Glucose 122 H Calcium 10.2 H Phosphorus 3.2 Albumin 2.7 L 01/21/18 01/21/18 01/21/18 14:45 14:45 17:38 WBC 28.9 H RBC 5.36 Hgb 11.6 L Hct 36.4 L MCV 67.9 L MCH 21.7 L MCHC 31.9 L RDW 20.6 H Plt Count 278 D MPV 10.2 Prelim Diff (Auto) Slide review pending Neut % (Auto) 92.5 H Lymph % (Auto) 1.8 L [place] % (Auto) 5.3 Eos % (Auto) 0.1 Baso % (Auto) 0.3 Neut # (Auto) 26.7 H Lymph # (Auto) 0.5 L [place] # (Auto) 1.5 H Eos # (Auto) 0.0 Baso # (Auto) 0.1 WBC Differential . Diff Scan Auto diff confirmed Differential Comment . Platelet Estimate Normal Platelet Morphology Enlarged H Target Cells 1+ H Sodium 136 Potassium 4.2 Chloride 96 L Carbon Dioxide 26.9 Anion Gap 13 BUN 132 H Creatinine 3.05 H Estimated GFR 25 L POC Glucose 106 Random Glucose 117 H Calcium 9.5 Phosphorus Albumin 01/21/18 01/22/18 20:30 07:34 WBC RBC Hgb Hct MCV MCH MCHC RDW Plt Count MPV Prelim Diff (Auto) Neut % (Auto) Lymph % (Auto) [place] % (Auto) Eos % (Auto) Baso % (Auto) Neut # (Auto) Lymph # (Auto) [place] # (Auto) Eos # (Auto) Baso # (Auto) WBC Differential Diff Scan Differential Comment Platelet Estimate Platelet Morphology Target Cells Sodium Potassium Chloride Carbon Dioxide Anion Gap BUN Creatinine Estimated GFR POC Glucose 154 H 184 H Random Glucose Calcium Phosphorus Albumin Result Diagrams: 01/21/18 14:45 01/22/18 15:30 Imaging: ITS Impressions Videofluoroscopic Swallow 01/18/18 00:00 CONCLUSION: Moderate silent aspiration. Please see consultation for speech pathology for further recommendations. Chest X-Ray 01/21/18 00:00 CONCLUSION: Mild left lower lung infiltrate with a small left-sided effusion. Pulmonary venous congestion. Stable mild cardiomegaly. 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 Legal: Not able to make decisions/incapacitated 2/2 to critical illness and change in mental status, not clear he will regain ability to. Per [place] statutes his would be appropriate legal decision maker. SHe is being supported by her daughter Lissette Ethical issues impacting care: none identified Important Contacts: Lidia Alexander [phone]; mikala [phone] Dtr Lissette Bowman [phone] Prognosis: This patient was admitted for acute shortness of breath. He has known history of COPD. He also had been being worked up outpatient for possible myeloma process. He has significant right sided heart failure this admission was severely reduced cardiac output, and severe pulmonary hypertension. This combined with advanced COPD and acute renal failure makes overall prognosis poor. Pt declining, weakening. High risk for ongoing complications, decline and . Hospice appropriate. Code Status: Alternative Code (no intubation) Plan: * Legal decision maker: Not currently capacitated to make decisions. Per [place] statutes his would be appropriate legal decision maker. SHe is being supported by her daughter Lissette. * Goals:previously aggressive but today Family opting for alternative code with no intubation and emphasized that they want to do whatever is necessary to bring him home. They requested a 1600 meeting today with hospice. * CODE STATUS: ALTERNATIVE CODE, no intubation * SYMPTOMS: * Dyspnea- acute dyspnea on day of presentation. was intubated, extubated , s/p heart catheterization, severely reduced cardiac output, pulmonary hypertension. Noted to have advanced COPD O2 dependent 3 L. Currently on NC 6L with sat 94%. Nonverbal today, much more dyspneic than yesterday, tachypneic. Currently on scheduled inhaled steroids, symbicort, duonebs. Bipap at night. recommend PRN ativan q6h 0.5 mg mild anxiety or dyspnea; 1 mg moderate to severe anxiety or dyspnea * Pain-patient with chronic back pain, chronic muscle skeletal pain, chronic pain syndrome. had been on Lyrica. Per heme/onc no definite evidence to suggest multiple myeloma. Pt now with decubitus and skin breakdown on scrotum. Denies pain to me but last night rated pain 8. Wound care following. Has PRN apap, Percocet q6h PRN, last had last night 2100, lyrica. Failed swallow eval. * weakness/debility - worsening dysphagia, silent aspiration per MBS. Per POP SINGER unable to manage secretions, now made NPO. Not doing PT. * Hospice consult pending - meeting tentatively 1600 * Palliative care will continue to follow during hospital course as condition evolves, to assist patient/decision-maker with understanding of medical conditions, weighing benefits/burdens of treatment options, for clarification of goals of treatment. Additionally will assist with any symptoms of palliative concern
--- NOTE | 2018-01-22 12:23 | P.PN ---
Subjective Interval history: Follow-up acute hypoxic respiratory failure/acute renal failure on hemodialysis/ right-sided heart failure January 20, 2018-patient seen and examined, case discussed with patient family is at bedside regarding his prognosis. His left in tears, however able to talk to patient's brother and niece. Currently satting at 90% on 6 L nasal cannula. January 21, 2018-patient seen and examined, with significant shortness of breath and worsening cough. January 22, 2018-patient seen and examined, no change and he is still struggling with his respiratory status. Spiking fevers Physical Exam Vital signs: Vital Signs 01/21/18 16:00 01/21/18 19:45 01/21/18 20:00 Temperature 100.8 F H 99.1 F Pulse Rate 113 H 110 H 104 H Respiratory Rate 20 22 20 Blood Pressure 95/70 L 106/67 Pulse Oximetry 94 L 92 L 94 L 01/21/18 21:46 01/22/18 00:00 01/22/18 01:04 Temperature 99.2 F Pulse Rate 118 H Respiratory Rate 24 Blood Pressure 111/49 L Pulse Oximetry 93 L 92 L 95 01/22/18 04:00 01/22/18 04:28 01/22/18 08:00 Temperature 99.1 F 99.2 F Pulse Rate 113 H 113 H Respiratory Rate 24 22 Blood Pressure 100/69 91/59 L Pulse Oximetry 98 95 96 01/22/18 09:57 01/22/18 09:58 Temperature Pulse Rate 113 H Respiratory Rate 17 Blood Pressure Pulse Oximetry 94 L Intake & Output 01/21/18 01/22/18 01/22/18 18:59 06:59 18:59 Intake Total 930 / 930 1000 / 1000 Output Total 125 / 125 Balance 930 / 930 875 / 875 Weight 107.5 kg Intake: IV 900 / 900 1000 / 1000 D5W Inj 1,000 ML @ 20 mls/hr IV 800 / 800 1000 / 1000 .CONT .Q24H [facility] Rx#:[id number] Maxipime Inj 1,000 MG In NS Inj 100 / 100 100 ML @ 200 mls/hr IV.SIG Q12H [facility] Rx#:[id number] Oral 30 / 30 0 / 0 Output: Urine 125 / 125 Stool 0 / 0 Other: # Voids 4 2 Date of Last Bowel Movement 01/21/18 01/21/18 Narrative: GENERAL: NAD SKIN: Warm and dry. HEAD: Normocephalic. EYES: No scleral icterus. No injection or drainage. NECK: Supple, trachea midline. No JVD or lymphadenopathy. CARDIOVASCULAR: Regular rate and rhythm without murmurs, gallops, or rubs. RESPIRATORY: Breath sounds decrease bilaterally. No accessory muscle use. GASTROINTESTINAL: Abdomen soft, non-tender, nondistended. MUSCULOSKELETAL: No cyanosis, or edema. BACK: Nontender without obvious deformity. No CVA tenderness. - Urinary Catheter Management Condom Cath placed during this visit: no Urethral indwelling: No Reason for continuing: Hourly intake/output Results - Labs CBC & Chem 7: 01/21/18 14:45 01/21/18 14:45 Laboratory Results - last 24 hr 01/21/18 01/21/18 01/21/18 11:10 13:19 14:45 WBC RBC Hgb Hct MCV MCH MCHC RDW Plt Count MPV Prelim Diff (Auto) Neut % (Auto) Lymph % (Auto) [place] % (Auto) Eos % (Auto) Baso % (Auto) Neut # (Auto) Lymph # (Auto) [place] # (Auto) Eos # (Auto) Baso # (Auto) WBC Differential Diff Scan Differential Comment Platelet Estimate Platelet Morphology Target Cells Sodium 135 L 136 Potassium 4.2 D 4.2 Chloride 98 96 L Carbon Dioxide 22.9 26.9 Anion Gap 14 13 BUN 134 H 132 H Creatinine 2.92 H 3.05 H Estimated GFR 27 L 25 L POC Glucose 133 H Random Glucose 122 H 117 H Calcium 10.2 H 9.5 Phosphorus 3.2 Albumin 2.7 L 01/21/18 01/21/18 01/21/18 14:45 17:38 20:30 WBC 28.9 H RBC 5.36 Hgb 11.6 L Hct 36.4 L MCV 67.9 L MCH 21.7 L MCHC 31.9 L RDW 20.6 H Plt Count 278 D MPV 10.2 Prelim Diff (Auto) Slide review pending Neut % (Auto) 92.5 H Lymph % (Auto) 1.8 L [place] % (Auto) 5.3 Eos % (Auto) 0.1 Baso % (Auto) 0.3 Neut # (Auto) 26.7 H Lymph # (Auto) 0.5 L [place] # (Auto) 1.5 H Eos # (Auto) 0.0 Baso # (Auto) 0.1 WBC Differential . Diff Scan Auto diff confirmed Differential Comment . Platelet Estimate Normal Platelet Morphology Enlarged H Target Cells 1+ H Sodium Potassium Chloride Carbon Dioxide Anion Gap BUN Creatinine Estimated GFR POC Glucose 106 154 H Random Glucose Calcium Phosphorus Albumin 01/22/18 01/22/18 07:34 12:10 WBC RBC Hgb Hct MCV MCH MCHC RDW Plt Count MPV Prelim Diff (Auto) Neut % (Auto) Lymph % (Auto) [place] % (Auto) Eos % (Auto) Baso % (Auto) Neut # (Auto) Lymph # (Auto) [place] # (Auto) Eos # (Auto) Baso # (Auto) WBC Differential Diff Scan Differential Comment Platelet Estimate Platelet Morphology Target Cells Sodium Potassium Chloride Carbon Dioxide Anion Gap BUN Creatinine Estimated GFR POC Glucose 184 H 214 H Random Glucose Calcium Phosphorus Albumin Microbiology 01/21/18 14:40 Blood - Peripheral Aerobic Blood Culture - Preliminary No growth in 1 day 01/21/18 14:40 Blood - Peripheral Anaerobic Blood Culture - Preliminary No growth in 1 day 01/21/18 14:45 Blood - Peripheral Aerobic Blood Culture - Preliminary No growth in 1 day 01/21/18 14:45 Blood - Peripheral Anaerobic Blood Culture - Preliminary No growth in 1 day Assessment and Plan - Plan 62-year-old man with Acute hypoxic respiratory failure COPD exacerbation Pulmonary hypertension Status post extubation on 12/31/2017 Continue oxygen support as needed Continue steroid taper, prednisone 5 mg daily Continue scheduled breathing treatments, continue Symbicort. Continue BiPAP at bedtime as needed Appreciate input from pulmonary medicine Continue BiPAP at bedtime Obstructive sleep apnea Obesity hypoventilation syndrome Continue BiPAP at night Hypertension Continue baseline treatment Hyperlipidemia Continue present treatment Follow as an outpatient Acute renal failure ATN Hemodialysis per nephrology Thursday, however no HD since January 12, 2018 Patient has consistently refused permacath placement, interventional radiology sign off Possible small CVA Daily aspirin Chronic HCV Anxiety disorder on chronic benzos Depression Chronic pain syndrome and chronic opiate continue Percocet Diabetes mellitus type 2 High insulin sliding scale with long-acting insulin Questionable seizure-like activity EEG was ordered and performed January 15, 2018 and no seizure activity reported History of HIT Follow platelets Sacral decubitus wound Appreciate input from wound care nurse History of MGUS DVT prophylaxis Chest wall mass Biopsy once stable Dysphagia Swallow eval performed January 18, 2018 Cough 7/12/18 Chest x-ray noted and reviewed by me with finding of Mild left lower lung infiltrate with a small left-sided effusion. Pulmonary venous congestion. s/p Lasix IV 20 mg 1 Continue cefepime IV every 12 hours for possible HCAP Sputum culture pending Hospice consultation pending Appreciate input from palliative care medicine
[2018-01-22] MEDS: Calcium Acetate 667 MG Capsule PO SCH ×3 (12:43→18:18)
--- NOTE | 2018-01-22 15:45 | P.PNNP ---
Subjective Interval history: Patient seen in AM, more alert, not in distress. Physical Exam Vital signs: Vital Signs 01/21/18 16:00 01/21/18 19:45 01/21/18 20:00 Temperature 100.8 F H 99.1 F Pulse Rate 113 H 110 H 104 H Respiratory Rate 20 22 20 Blood Pressure 95/70 L 106/67 Pulse Oximetry 94 L 92 L 94 L 01/21/18 21:46 01/22/18 00:00 01/22/18 01:04 Temperature 99.2 F Pulse Rate 118 H Respiratory Rate 24 Blood Pressure 111/49 L Pulse Oximetry 93 L 92 L 95 01/22/18 04:00 01/22/18 04:28 01/22/18 08:00 Temperature 99.1 F 99.2 F Pulse Rate 113 H 113 H Respiratory Rate 24 22 Blood Pressure 100/69 91/59 L Pulse Oximetry 98 95 96 01/22/18 09:57 01/22/18 09:58 01/22/18 12:00 Temperature 99.6 F Pulse Rate 113 H 106 H Respiratory Rate 17 22 Blood Pressure 91/66 L Pulse Oximetry 94 L 95 Intake & Output 01/21/18 01/22/18 01/22/18 18:59 06:59 18:59 Intake Total 930 / 930 1000 / 1000 Output Total 125 / 125 Balance 930 / 930 875 / 875 Weight 107.5 kg Intake: IV 900 / 900 1000 / 1000 D5W Inj 1,000 ML @ 20 mls/hr IV 800 / 800 1000 / 1000 .CONT .Q24H [facility] Rx#:[id number] Maxipime Inj 1,000 MG In NS Inj 100 / 100 100 ML @ 200 mls/hr IV.SIG Q12H [facility] Rx#:[id number] Oral 30 / 30 0 / 0 Output: Urine 125 / 125 Stool 0 / 0 Other: # Voids 4 2 Date of Last Bowel Movement 01/21/18 01/21/18 Narrative: GENERAL: Patient is sleepy, but arousable, not in distress. SKIN: Warm and dry. HEAD: Normocephalic. EYES: No scleral icterus. No injection or drainage. NECK: Supple, trachea midline. No JVD or lymphadenopathy. CARDIOVASCULAR: Regular rate and rhythm without murmurs, gallops, or rubs. RESPIRATORY: Breath sounds decrease bilaterally. No accessory muscle use. GASTROINTESTINAL: Abdomen soft, non-tender, nondistended. MUSCULOSKELETAL: No cyanosis, or edema. BACK: Nontender without obvious deformity. No CVA tenderness. - Urinary Catheter Management Condom Cath placed during this visit: no Urethral indwelling: No Reason for continuing: Hourly intake/output Assessment and Plan - Assessment (1) Acute kidney injury Code(s): N17.9 - Acute kidney failure, unspecified Status: Acute Plan: The patient has chronic kidney disease and developed acute kidney injury. Acute renal failure with ATN because of the hypotension or possibility of contrast nephropathy with the CT angiogram done. Renal ultrasound with no hydronephrosis Heart cath pulmonary hypertension Decubitus ulcer Avoid nephrotoxic agents Last HD done Thursday Refused vascath, then had seizure-like activity and permcath not done. Creatinine trend at 3.29 -> 2.9 ->3.0 ->3.38 , labs pending today Renal diet, potassium reduced UOP at 700/24 hours, improving Last HD was / - may be seeing slow recovery. Continue to hold HD for now. Will monitor labs, urinary output, and watch for renal recovery. BMP ordered, patient is refusing.
[2018-01-22 16:24] LABS: Calcium 9.3 mg/dL (8.5-10.1); Carbon Dioxide 23.9 meq/L (21.0-32.0); Potassium 3.9 meq/L (3.5-5.1)
--- NOTE | 2018-01-22 19:27 | P.PN ---
Subjective Interval history: arousible weak no distress Physical Exam Vital signs: Vital Signs 01/21/18 19:45 01/21/18 20:00 01/21/18 21:46 Temperature 99.1 F Pulse Rate 110 H 104 H Respiratory Rate 22 20 Blood Pressure 106/67 Pulse Oximetry 92 L 94 L 93 L 01/22/18 00:00 01/22/18 01:04 01/22/18 04:00 Temperature 99.2 F 99.1 F Pulse Rate 118 H 113 H Respiratory Rate 24 24 Blood Pressure 111/49 L 100/69 Pulse Oximetry 92 L 95 98 01/22/18 04:28 01/22/18 08:00 01/22/18 09:57 Temperature 99.2 F Pulse Rate 113 H 113 H Respiratory Rate 22 17 Blood Pressure 91/59 L Pulse Oximetry 95 96 01/22/18 09:58 01/22/18 12:00 01/22/18 16:00 Temperature 99.6 F 100.9 F H Pulse Rate 106 H 122 H Respiratory Rate 22 22 Blood Pressure 91/66 L 122/60 Pulse Oximetry 94 L 95 93 L 01/22/18 17:41 Temperature 100.9 F H Pulse Rate 122 H Respiratory Rate 22 Blood Pressure 122/60 Pulse Oximetry 93 L Intake & Output 01/22/18 01/22/18 01/23/18 06:59 18:59 06:59 Intake Total 1000 / 1000 Output Total 125 / 125 Balance 875 / 875 Weight 107.5 kg Intake: IV 1000 / 1000 D5W Inj 1,000 ML @ 20 mls/hr IV 1000 / 1000 .CONT .Q24H COUNTS INCLUDE 234 BEDS AT [facility] Rx#:[id number] Oral 0 / 0 Output: Urine 125 / 125 Stool 0 / 0 Other: # Voids 2 Date of Last Bowel Movement 01/21/18 Narrative: GENERAL: Patient is sleepy, but arousable, not in distress. SKIN: Warm and dry. HEAD: Normocephalic. EYES: No scleral icterus. No injection or drainage. NECK: Supple, trachea midline. No JVD or lymphadenopathy. CARDIOVASCULAR: Regular rate and rhythm without murmurs, gallops, or rubs. RESPIRATORY: Breath sounds decrease bilaterally. No accessory muscle use. GASTROINTESTINAL: Abdomen soft, non-tender, nondistended. MUSCULOSKELETAL: No cyanosis, or edema. BACK: Nontender without obvious deformity. No CVA tenderness. - Urinary Catheter Management Condom Cath placed during this visit: no Urethral indwelling: No Reason for continuing: Hourly intake/output Results - Labs CBC & Chem 7: 01/21/18 14:45 01/22/18 15:30 Laboratory Results - last 24 hr 01/21/18 01/22/18 01/22/18 20:30 07:34 12:10 Sodium Potassium Chloride Carbon Dioxide Anion Gap BUN Creatinine Estimated GFR POC Glucose 154 H 184 H 214 H Random Glucose Calcium 01/22/18 15:30 Sodium 138 Potassium 3.9 Chloride 100 Carbon Dioxide 23.9 Anion Gap 14 BUN 141 H Creatinine 2.96 H Estimated GFR 26 L POC Glucose Random Glucose 200 H Calcium 9.3 Microbiology 01/21/18 14:40 Blood - Peripheral Aerobic Blood Culture - Preliminary No growth in 1 day 01/21/18 14:40 Blood - Peripheral Anaerobic Blood Culture - Preliminary No growth in 1 day 01/21/18 14:45 Blood - Peripheral Aerobic Blood Culture - Preliminary No growth in 1 day 01/21/18 14:45 Blood - Peripheral Anaerobic Blood Culture - Preliminary No growth in 1 day Assessment and Plan - Plan impression l respiratory failure copd chf renal failure KANWAL obesity decubitus ulcer PLAN O2 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
[2018-01-23] MEDS: Morphine Inj 4 MG/ML Vial IV.PUSH PRN ×3 (00:01→23:22)
[2018-01-23] MEDS: dilTIAZem 30 MG Tablet PO SCH ×3 (02:16→20:03)
[2018-01-23] MEDS: Oral Hygiene Kit OROPHARYNG SCH ×3 (02:17→20:03)
[2018-01-23] MEDS: Chlorhexidine Gluconate 2% 1 Pack (2 Cloths) TOPICAL SCH (05:45)
[2018-01-23] MEDS: Insulin NovoLOG Aspart Correctional Sugar Inj SQ SCH ×2 (09:34→20:07)
[2018-01-23] MEDS: Artificial Tears Opth Oint 3.5 GM Tube EACH EYE SCH (09:36)
[2018-01-23] MEDS: Budesonide-Formoterol 160/4.5 MCG 6 GM Inhaler INH SCH (09:37)
--- NOTE | 2018-01-23 09:54 | P.PN ---
Subjective Interval history: Follow-up acute hypoxic respiratory failure/acute renal failure on hemodialysis/ right-sided heart failure January 20, 2018-patient seen and examined, case discussed with patient family is at bedside regarding his prognosis. His left in tears, however able to talk to patient's brother and niece. Currently satting at 90% on 6 L nasal cannula. January 21, 2018-patient seen and examined, with significant shortness of breath and worsening cough. January 22, 2018-patient seen and examined, no change and he is still struggling with his respiratory status. Spiking fevers January 23, 2018-patient seen and examined, spiking fevers, refusing treatment Physical Exam Vital signs: Vital Signs 01/22/18 09:57 01/22/18 09:58 01/22/18 12:00 Temperature 99.6 F Pulse Rate 113 H 106 H Respiratory Rate 17 22 Blood Pressure 91/66 L Pulse Oximetry 94 L 95 01/22/18 16:00 01/22/18 17:41 01/22/18 19:37 Temperature 100.9 F H 100.9 F H Pulse Rate 122 H 122 H 114 H Respiratory Rate 22 22 18 Blood Pressure 122/60 122/60 Pulse Oximetry 93 L 93 L 97 01/22/18 20:00 01/22/18 23:40 01/23/18 00:00 Temperature 98.7 F 99.7 F H Pulse Rate 121 H 127 H Respiratory Rate 20 20 Blood Pressure 128/70 109/68 Pulse Oximetry 95 95 96 01/23/18 04:00 01/23/18 04:55 01/23/18 08:01 Temperature 98.1 F Pulse Rate 117 H 113 H Respiratory Rate 20 14 Blood Pressure 92/62 L Pulse Oximetry 98 98 98 Intake & Output 01/22/18 01/23/18 01/23/18 18:59 06:59 18:59 Intake Total 0 / 0 Output Total 0 / 0 Balance 0 / 0 Intake: Oral 0 / 0 Output: Stool 0 / 0 Other: # Voids 5 Date of Last Bowel Movement 01/21/18 Narrative: GENERAL: Lethargic but in NAD. SKIN: Warm and dry. HEAD: Normocephalic. EYES: No scleral icterus. No injection or drainage. NECK: Supple, trachea midline. No JVD or lymphadenopathy. CARDIOVASCULAR: Regular rate and rhythm without murmurs, gallops, or rubs. RESPIRATORY: Breath sounds decrease bilaterally. No accessory muscle use. GASTROINTESTINAL: Abdomen soft, non-tender, nondistended. MUSCULOSKELETAL: No cyanosis, or edema. BACK: Nontender without obvious deformity. No CVA tenderness. - Urinary Catheter Management Condom Cath placed during this visit: no Urethral indwelling: No Reason for continuing: Hourly intake/output Results - Labs CBC & Chem 7: 01/21/18 14:45 01/22/18 15:30 Laboratory Results - last 24 hr 01/22/18 01/22/18 01/23/18 12:10 15:30 09:16 Sodium 138 Potassium 3.9 Chloride 100 Carbon Dioxide 23.9 Anion Gap 14 BUN 141 H Creatinine 2.96 H Estimated GFR 26 L POC Glucose 214 H 244 H Random Glucose 200 H Calcium 9.3 Microbiology 01/21/18 14:40 Blood - Peripheral Aerobic Blood Culture - Preliminary No growth in 1 day 01/21/18 14:40 Blood - Peripheral Anaerobic Blood Culture - Preliminary No growth in 1 day 01/21/18 14:45 Blood - Peripheral Aerobic Blood Culture - Preliminary No growth in 1 day 01/21/18 14:45 Blood - Peripheral Anaerobic Blood Culture - Preliminary No growth in 1 day Assessment and Plan - Plan 62-year-old man with Acute hypoxic respiratory failure COPD exacerbation Pulmonary hypertension Status post extubation on 12/31/2017 Continue oxygen support as needed Continue steroid taper, prednisone 5 mg daily Continue scheduled breathing treatments, continue Symbicort. Continue BiPAP at bedtime as needed Appreciate input from pulmonary medicine Continue BiPAP at bedtime Obstructive sleep apnea Obesity hypoventilation syndrome Continue BiPAP at night Hypertension Continue baseline treatment Hyperlipidemia Continue present treatment Follow as an outpatient Acute renal failure ATN Hemodialysis per nephrology Thursday, however no HD since January 12, 2018 Patient has consistently refused permacath placement, interventional radiology sign off Possible small CVA Daily aspirin Chronic HCV Anxiety disorder on chronic benzos Depression Chronic pain syndrome and chronic opiate continue Percocet Diabetes mellitus type 2 High insulin sliding scale with long-acting insulin Questionable seizure-like activity EEG was ordered and performed January 15, 2018 and no seizure activity reported History of HIT Follow platelets Sacral decubitus wound Appreciate input from wound care nurse History of MGUS DVT prophylaxis Chest wall mass Biopsy once stable Dysphagia Swallow eval performed January 18, 2018 Febrile episodes HCAP Chest x-ray noted and reviewed by me with finding of Mild left lower lung infiltrate with a small left-sided effusion. Pulmonary venous congestion. s/p Lasix IV 20 mg 1 Continue cefepime IV every 12 hours and add Vancomycin for possible HCAP ID consult Sputum culture pending. Blood culture NTD Hospice consultation pending Appreciate input from palliative care medicine
--- NOTE | 2018-01-23 12:49 | P.PNNP ---
Subjective Interval history: No acute complaints. Appears more awake today. <Amber Thomas - Last Filed: 01/23/18 12:46> Physical Exam Vital signs: Vital Signs 01/22/18 16:00 01/22/18 17:41 01/22/18 19:37 Temperature 100.9 F H 100.9 F H Pulse Rate 122 H 122 H 114 H Respiratory Rate 22 22 18 Blood Pressure 122/60 122/60 Pulse Oximetry 93 L 93 L 97 01/22/18 20:00 01/22/18 23:40 01/23/18 00:00 Temperature 98.7 F 99.7 F H Pulse Rate 121 H 127 H Respiratory Rate 20 20 Blood Pressure 128/70 109/68 Pulse Oximetry 95 95 96 01/23/18 04:00 01/23/18 04:55 01/23/18 08:00 Temperature 98.1 F 97.7 F Pulse Rate 117 H 111 H Respiratory Rate 20 20 Blood Pressure 92/62 L 98/58 L Pulse Oximetry 98 98 97 01/23/18 08:01 Temperature Pulse Rate 113 H Respiratory Rate 14 Blood Pressure Pulse Oximetry 98 Intake & Output 01/22/18 01/23/18 01/23/18 18:59 06:59 18:59 Intake Total 0 / 0 Output Total 0 / 0 Balance 0 / 0 Intake: Oral 0 / 0 Output: Stool 0 / 0 Other: # Voids 5 Date of Last Bowel Movement 01/21/18 - Constitutional no acute distress - Routine HEENT Exam Head: Present: normocephalic ENT: Present: mucous membranes moist - Routine Neck Exam Present: supple. Absent: JVD - Routine Respiratory Exam Present: decreased breath sounds. Absent: rales, rhonchi - Routine Cardiovascular Exam Present: RRR - Routine Abdominal Exam Present: soft, normoactive bowel sounds. Absent: tenderness - Routine Skin Exam Present: dry, warm - Routine Neurological Exam Present: alert - Routine Psychiatric Exam Present: cooperative - Urinary Catheter Management Condom Cath placed during this visit: no Urethral indwelling: No Reason for continuing: Hourly intake/output <Amber Thomas - Last Filed: 01/23/18 12:46> Vital signs: Vital Signs 01/23/18 12:00 01/23/18 16:00 01/23/18 20:36 Temperature 97.8 F 98.2 F Pulse Rate 109 H 109 H 108 H Respiratory Rate 20 20 17 Blood Pressure 95/57 L 97/57 L Pulse Oximetry 97 94 L 01/23/18 20:37 Temperature Pulse Rate Respiratory Rate Blood Pressure Pulse Oximetry 94 L Intake & Output 01/23/18 01/24/18 01/24/18 18:59 06:59 18:59 Intake Total 0 / 0 240 / 240 Output Total 0 / 0 Balance 0 / 0 240 / 240 Intake: Oral 0 / 0 Other 240 / 240 Output: Stool 0 / 0 Other: Other Intake Source Saline Solution # Voids 1 Date of Last Bowel Movement 01/21/18 - Urinary Catheter Management Condom Cath placed during this visit: no <Paris Cueto - Last Filed: 01/24/18 10:32> Assessment and Plan - Assessment (1) Acute kidney injury Code(s): N17.9 - Acute kidney failure, unspecified Status: Acute Plan: The patient has chronic kidney disease and developed acute kidney injury. Acute renal failure with ATN because of the hypotension or possibility of contrast nephropathy with the CT angiogram done. Renal ultrasound with no hydronephrosis Heart cath pulmonary hypertension Decubitus ulcer Avoid nephrotoxic agents Last HD done Thursday Refused vascath, then had seizure-like activity and permcath not done. Creatinine trend at 3.29 -> 2.9 ->3.0 ->3.38 ->2.96 at last check Renal diet, potassium reduced Last HD was 7/ - may be seeing slow recovery. Continue to hold HD for now, patient is refusing hemodialysis Hospice consult is pending. Will monitor labs, urinary output, and watch for renal recovery. <Amber Thomas - Last Filed: 01/23/18 12:46> - Assessment (1) Acute kidney injury Code(s): N17.9 - Acute kidney failure, unspecified Status: Acute - Attending Attestation Patient seen and examined, agree with above. Last creatinine was 2.9, stable, refusing labs off and on. Encourage oral intake. <Paris Cueto - Last Filed: 01/24/18 10:32>
--- NOTE | 2018-01-23 16:12 | P.PN ---
Subjective Interval history: ALERT NO DISTRESS NON AMBULATORY Physical Exam Vital signs: Vital Signs 01/22/18 17:41 01/22/18 19:37 01/22/18 20:00 Temperature 100.9 F H 98.7 F Pulse Rate 122 H 114 H 121 H Respiratory Rate 22 18 20 Blood Pressure 122/60 128/70 Pulse Oximetry 93 L 97 95 01/22/18 23:40 01/23/18 00:00 01/23/18 04:00 Temperature 99.7 F H 98.1 F Pulse Rate 127 H 117 H Respiratory Rate 20 20 Blood Pressure 109/68 92/62 L Pulse Oximetry 95 96 98 01/23/18 04:55 01/23/18 08:00 01/23/18 08:01 Temperature 97.7 F Pulse Rate 111 H 113 H Respiratory Rate 20 14 Blood Pressure 98/58 L Pulse Oximetry 98 97 98 Intake & Output 01/22/18 01/23/18 01/23/18 18:59 06:59 18:59 Intake Total 0 / 0 Output Total 0 / 0 Balance 0 / 0 Intake: Oral 0 / 0 Output: Stool 0 / 0 Other: # Voids 5 Date of Last Bowel Movement 01/21/18 Narrative: GENERAL: Lethargic but in NAD. SKIN: Warm and dry. HEAD: Normocephalic. EYES: No scleral icterus. No injection or drainage. NECK: Supple, trachea midline. No JVD or lymphadenopathy. CARDIOVASCULAR: Regular rate and rhythm without murmurs, gallops, or rubs. RESPIRATORY: Breath sounds decrease bilaterally. No accessory muscle use. GASTROINTESTINAL: Abdomen soft, non-tender, nondistended. MUSCULOSKELETAL: No cyanosis, or edema. BACK: Nontender without obvious deformity. No CVA tenderness. - Urinary Catheter Management Condom Cath placed during this visit: no Urethral indwelling: No Reason for continuing: Hourly intake/output Results - Labs CBC & Chem 7: 01/21/18 14:45 01/22/18 15:30 Laboratory Results - last 24 hr 01/22/18 01/23/18 15:30 09:16 Sodium 138 Potassium 3.9 Chloride 100 Carbon Dioxide 23.9 Anion Gap 14 BUN 141 H Creatinine 2.96 H Estimated GFR 26 L POC Glucose 244 H Random Glucose 200 H Calcium 9.3 Microbiology 01/21/18 14:40 Blood - Peripheral Aerobic Blood Culture - Preliminary No growth in 2 days 01/21/18 14:40 Blood - Peripheral Anaerobic Blood Culture - Preliminary No growth in 2 days 01/21/18 14:45 Blood - Peripheral Aerobic Blood Culture - Preliminary No growth in 2 days 01/21/18 14:45 Blood - Peripheral Anaerobic Blood Culture - Preliminary No growth in 2 days Assessment and Plan - Plan impression l respiratory failure copd chf renal failure KANWAL obesity decubitus ulcer PLAN O2 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
[2018-01-23] MEDS: Chlorhexidine 0.12% Oral Kit 15 ML UDC SWISH-SPIT SCH (20:02)
[2018-01-23] MEDS: Collagenase Oint 30 GM Tube TOPICAL SCH ×2 (20:02→20:06)
[2018-01-23] MEDS: predniSONE 5 MG Tablet PO SCH (20:04)
[2018-01-23] MEDS: Insulin Detemir Inj 1,000 UNIT/10 ML Vial SQ SCH ×2 (20:04→21:48)
[2018-01-23] MEDS: Famotidine 20 MG Tablet PO SCH (20:05)
[2018-01-23] MEDS: Senna/Docusate Sodium 8.6/50 MG Tablet PO SCH (20:06)
[2018-01-23] MEDS: Calcium Acetate 667 MG Capsule PO SCH (20:06)
--- NOTE | 2018-03-21 12:38 | P.DS ---
Date of admission: 12/16/17 04:51 Primary care physician: Randy Carrillo Anticipated date of discharge: 01/23/18 Brief History from admission: 62-year-old -[place] male presents for shortness of breath. The patient developed shortness of breath approximately 3 hours prior to arrival. EMS noted that the patient is on oxygen 4 L via nasal cannula at home and also has a CPAP machine for sleep apnea. The shortness of breath started 3 hours prior to arrival and has progressed. The patient does have a history of COPD and is followed by his aed trainer, Dr. Herrmann. The patient denies any known history of congestive heart failure. He denies previous intubation. He denies any chest pain, nausea, vomiting, or significant lower extremity edema. The patient did receive Solu-Medrol 125 mg intravenously, 2 albuterol nebulizers, one Atrovent nebulizer prior to arrival by EMS with some improvement in clinical condition. Per EMS report the patient's initial O2 saturation was in the 70s, however, with a took him to the back of the ambulance his O2 saturation fell into the 50s prior to CPAP placement. DS: Summary Hospital Course: Prior to discharge to hospice, patient was treated for: Acute hypoxic respiratory failure COPD exacerbation Pulmonary hypertension Status post extubation on 12/31/2017 Continue oxygen support as needed Continue steroid taper, prednisone 5 mg daily Continue scheduled breathing treatments, continue Symbicort. Continue BiPAP at bedtime as needed Appreciate input from pulmonary medicine Continue BiPAP at bedtime Obstructive sleep apnea Obesity hypoventilation syndrome Continue BiPAP at night Hypertension Continue baseline treatment Hyperlipidemia Continue present treatment Follow as an outpatient Acute renal failure ATN Hemodialysis per nephrology Thursday, however no HD since January 12, 2018 Patient has consistently refused permacath placement, interventional radiology sign off Possible small CVA Daily aspirin Chronic HCV Anxiety disorder on chronic benzos Depression Chronic pain syndrome and chronic opiate continue Percocet Diabetes mellitus type 2 High insulin sliding scale with long-acting insulin Questionable seizure-like activity EEG was ordered and performed January 15, 2018 and no seizure activity reported History of HIT Follow platelets Sacral decubitus wound Appreciate input from wound care nurse History of MGUS DVT prophylaxis Chest wall mass Biopsy once stable Dysphagia Swallow eval performed January 18, 2018 Febrile episodes HCAP Chest x-ray noted and reviewed by me with finding of Mild left lower lung infiltrate with a small left-sided effusion. Pulmonary venous congestion. s/p Lasix IV 20 mg 1 Continue cefepime IV every 12 hours and add Vancomycin for possible HCAP ID consult Sputum culture pending. Blood culture NTD - Time Spent with Patient Total time spent providing and/or coordinating discharge services: Greater than 30 minutes Exam Narrative: GENERAL: Lethargic SKIN: Warm and dry. HEAD: Normocephalic. EYES: No scleral icterus. No injection or drainage. NECK: Supple, trachea midline. No JVD or lymphadenopathy. CARDIOVASCULAR: Regular rate and rhythm without murmurs, gallops, or rubs. RESPIRATORY: Breath sounds equal bilaterally. No accessory muscle use. GASTROINTESTINAL: Abdomen soft, non-tender, nondistended. MUSCULOSKELETAL: No cyanosis, or edema. BACK: Nontender without obvious deformity. No CVA tenderness. Results Procedures completed during hospitalization: None - Impressions ITS Impressions Videofluoroscopic Swallow 01/18/18 00:00 CONCLUSION: Moderate silent aspiration. Please see consultation for speech pathology for further recommendations. Chest X-Ray 01/21/18 00:00 CONCLUSION: Mild left lower lung infiltrate with a small left-sided effusion. Pulmonary venous congestion. Stable mild cardiomegaly. Discharge Plan - Discharge Disposition Patient Disposition: [facility] Hospice/Med Facility - Discharge Condition Condition: Fair - Discharge Order Discharge Orders: Discharge Order (Routine); Ordered 01/23/18 Ordered By: Kim Huynh - Physicians Team Primary Care Provider: Randy Carrillo Attending Provider: Paras Bashir Other Providers: Charles Recio MD ; Bhavya Richard MD ; Paris Cueto MD ; Tim Burgos MD ; Brad Burgos MD ; Andrez Faye MD ; Camden Gunderson MD, PhD ; Anamaria Avina MD ; Iris Serrato MD ; Montez Herrmann MD ; Romel Sneed MD ; [facility],Agency ; [facility],[place] - Rxs /Orders / Referrals /Forms Prescriptions: No Action albuterol sulfate 2.5 mg /3 mL (0.083 %) Solution For Nebulization 2.5 mg INHALATION Q4H albuterol sulfate [Ventolin HFA] 90 mcg/actuation Hfa Aerosol Inhaler 2 puff INHALATION Q4H PRN (Reason: Shortness Of Breath) amlodipine 10 mg Tablet 10 mg PO DAILY aspirin 81 mg Tablet,Delayed Release (Dr/Ec) 81 mg PO DAILY bupropion HCl [Wellbutrin SR] 100 mg Tablet Extended Release 12 Hr 100 mg PO DAILY diazepam [Valium] 5 mg Tablet 5 mg PO DAILY PRN (Reason: Anxiety) enalapril maleate [Vasotec] 20 mg Tablet 20 mg PO BID esomeprazole magnesium [Nexium] 40 mg Capsule,Delayed Release(Dr/Ec) 40 mg PO DAILY exenatide microspheres [Bydureon] 2 mg Suspension,Extended Rel Recon 2 mg SUB-Q Q7D fluticasone-salmeterol [Advair Diskus] 250-50 mcg/dose Blister With Device 1 inh INHALATION BID glyburide 5 mg Tablet 5 mg PO DAILY hydrochlorothiazide 50 mg Tablet 50 mg PO DAILY insulin aspart U-100 [Novolog U-100 Insulin aspart] 100 unit/mL Solution See Label Instructions .ROUTE .COMPLEX insulin detemir U-100 [Levemir U-100 Insulin] 100 unit/mL Solution 70 unit SUB-Q BID metformin 1,000 mg Tablet 1,000 mg PO BIDWM morphine 30 mg Tablet Extended Release 30 mg PO BID morphine 15 mg Tablet 15 mg PO BID potassium chloride [K-Tab] 20 mEq Tablet Extended Release 20 meq PO DAILY pregabalin [Lyrica] 200 mg Capsule 200 mg PO TID pregabalin [Lyrica] 225 mg Capsule 225 mg PO TID simvastatin 40 mg Tablet 40 mg PO HS Referrals: Randy Carrillo MD [Primary Care Provider] - See Instructions - Discharge Instructions Patient Printed Instructions: Heart Failure (DC), Asthma (ED)
== END 2018-01-23 23:41 | disposition hospice, inpatient (51) ==
LOC: N04 04:51
PROVIDERS: ADMIT Hospitalist; ATTEND Hospitalist